=== PATIENT | female | born 1940 | race Caucasian/White ===

== ENCOUNTER → 2023-02-08 13:27 | Outpatient (CLI) | payer MEDICARE, SELFPAY ==
--- NOTE | ~2023-02-08 | XR_ITS ---
XR chest 2V DATE: 02/08/2023 13:50 INDICATION: COPD. Difficulty breathing. TECHNIQUE: 2 views COMPARISON: None FINDINGS: Normal heart size. Is aortic calcification and minimal unfolding. No hilar or mediastinal e nlargement. Mild bilateral apical capping. There is accentuation of interstitial lung markings, likely chronic interstitial change. The lungs ap pear mildly hyperinflated no pulmonary consolidation, pleural effusion or pneumothorax. Osteopenia. Probable bilateral rotator cuff atrophy. IMPRESSION: Likely chronic interstitial lung changes Mild hyperinflation which may indicate obstructive airways disease Aortic atherosclerosis Osteopenia Reviewed, dictated and finalized at location B.
== END ==
PROVIDERS: PCP Internal Medicine; Visit Provider Nurse Practitioner
DX: J44.1 Chronic obstructive pulmonary disease with (acute) exacerbation (principal); I70.0 Atherosclerosis of aorta; M85.80 Other specified disorders of bone density and structure, unspecified site
CPT/HCPCS: 71046

== ENCOUNTER 2023-07-12 12:35 | Inpatient (IN) | payer MEDICARE, SELFPAY ==
[2023-07-12] VITALS (32 sets, daily range): BP systolic 107–132; BP diastolic 60–83; PULSE 96–138; RESP 22–48; TEMP 36.2–36.8; O2SAT 94–100; BMI 25.8
--- NOTE | ~2023-07-12 | CT_ITS ---
EXAMINATION: CTA chest PE protocol DATE: 07/14/2023 14:13 INDICATION: Shortness of breath. TECHNIQUE: Computed tomography angiography (CTA) of the chest was performed with 100 mL Omnipaque-350 intravenous contrast timed to evaluate the pulmonary arteries. Coronal maximum intensity projection 3D-reconstructions were created by the technologist. Automated exposure control and iterative reconst ruction technique were employed. The dose-length product was 256.86 mGy-cm. COMPARISON: Chest single view 07/12/2023 FINDINGS: There is severe emphysema. There is peripheral septal thickening in the lungs with an infer ior predominance. No pleural effusion. Aortic atherosclerosis is noted. There are coronary artery gary cifications. The heart size is normal. No pericardial effusion. There is no pulmonary embolus. There is moderate cervical spondylosis and mild thoracic spondylosis. IMPRESSION: 1. No pulmonary embolus. Sensitivity is mildly decreased by motion artifact. 2. Diffuse lung disease, likely a combination of severe emphysema and mild chronic interstitial lung disease. Reviewed, dictated and finalized at location E. IMPRESSION: 1. No pulmonary embolus. Sensitivity is mildly decreased by motion artifact. 2. 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
--- NOTE | ~2023-07-12 | XR_ITS ---
EXAMINATION: XR chest 1V portable DATE: 07/12/2023 13:18 INDICATION: This of breath and difficulty breathing TECHNIQUE: frontal view of the chest was obtained. COMPARISON: Chest radiograph dated 02/08/2023 FINDINGS: Unchanged mild reticular opacities at the bilateral lung bases most likely related to chronic interst itial lung disease although differential would include mild pulmonary edema, atelectasis or less like ly pneumonia in the appropriate clinical setting. No pleural effusion or pneumothorax. The cardiomedi astinal silhouette is normal. Mild thoracic dextrocurvature. IMPRESSION: 1. Unchanged mild reticular opacities at the bilateral lung bases and favor chronic interstitial lung disease over either mild pulmonary edema, atelectasis or pneumonia. Reviewed, dictated and finalized at location A. IMPRESSION: 1. Unchanged mild reticular opacities at the bilateral lung bases and favor chr onic interstitial lung disease over either mild pulmonary edema, atelectasis or pneumonia.
--- NOTE | ~2023-07-12 | CT_ITS ---
CT head without contrast Indication: Painful pupils Technique: Serial scans were obtained through the brain without the administration of contrast. Dose reduction technique was used on this scan by utilizing automated exposure control and iterative recon struction technique. The dose-length product (DLP) was 529.67 mGy-cm. Findings: There is no evidence of intracranial hemorrhage, mass lesion, or acute infarct. The ventri cles and subarachnoid spaces are dilated, consistent with mild atrophy. Low attenuation regions are seen within the periventricular white matter bilaterally, likely representing changes from chronic mi crovascular ischemic disease. There is no evidence of edema, mass effect or midline shift. The visu alized paranasal sinuses and mastoid air cells are clear. Impression: No intracranial hemorrhage, mass, or acute infarct. Atrophy and chronic white matter changes, as above. Reviewed, dictated and finalized at location . Impression: No intracranial hemorrhage, mass, or acute infarct. Atrophy and chronic white matter changes, as above.
--- NOTE | ~2023-07-12 | US_ITS ---
EXAMINATION: US venous doppler [facility] DATE: 07/14/2023 15:08 INDICATION: Lower limb swelling. TECHNIQUE: Grayscale ultrasound images without and with compression and Doppler ultrasound images of the bilateral lower extremity veins were obtained. COMPARISON: None. FINDINGS: The visualized portions of right common femoral vein, profunda (deep) femoral vein, femoral vein, pop liteal vein, posterior tibial veins, peroneal veins, gastrocnemius vein and greater saphenous vein ou tflow are patent. The visualized portions of left common femoral vein, profunda femoral vein, femoral vein, popliteal v ein, posterior tibial veins, peroneal veins, gastrocnemius vein and greater saphenous vein outflow ar e patent. IMPRESSION: 1. No deep venous thrombosis in either lower limb. Reviewed, dictated and finalized at location A.
--- NOTE | 2023-07-12 13:03 | ECG_ITS ---
Measurements Intervals [place] Rate: 97 P: 64 RI: 161 QRS: 55 QRSD: 126 T: 40 QT: 367 QTc: 468 Interpretive Statements SINUS RHYTHM RIGHT BUNDLE BRANCH BLOCK [120+ ms QRS DURATION, UPRIGHT V1, 40+ ms S IN I/aVL/V4/V5/V6] ABNORMAL ECG NO PREVIOUS ECG AVAILABLE FOR COMPARISON Electronically Signed On 07-12-2023 14:02:15 CDT by Sean Osborn M.D.
[2023-07-12 13:24] LABS: Basophils Absolute Auto 0.1 K/mm3 (0.0-0.1); Basophils Percent Auto 0.4 % (0.2-1.2); Eosinophils Absolute Auto 0.1 K/mm3 (0-0.3); Eosinophils Percent Auto 0.6 % (0-4.4); Hematocrit 36.6 % (37.0-47.0); Hemoglobin 10.9 g/dL (12.0-15.0); Immature Granulocyte Absolute 0.09 K/mm3 (0.00-0.031); Immature Granulocyte Percent A 0.6 % (0-0.5); Lymphocytes Absolute Auto 2.12 K/mm3 (0.9-3.2); Lymphocytes Percent Auto 13.2 % (18.3-44.2); Mean Corpuscular HGB Conc 29.8 g/dl (32-36); Mean Corpuscular Hemoglobin 26.8 pg (26-34); Mean Corpuscular Volume 89.9 fl (80-100); Mean Platelet Volume 8.7 fl (7.4-10.4); Monocytes Absolute Auto 1.1 K/mm3 (0.1-0.6); Neutrophils Absolute Auto 12.6 K/mm3 (1.3-6.7); Neutrophils Percent Auto 78.2 % (45.5-73.1); Platelet Count Result 330 k/mm3 (150-375); Red Blood Count 4.07 M/mm3 (4.2-5.4); Red Cell Distribution Width 13.3 % (11.5-14.5); White Blood Count 16.1 K/mm3 (4.5-10.0)
[2023-07-12 13:33] LABS: Alanine Aminotransferase 17 U/L (6-35); Albumin Level 4.5 g/dL (3.5-5.1); Alkaline Phosphatase 117 U/L (38-126); Anion Gap 12 mmol/L (8-16); Aspartate Amino Transferase 24 U/L (14-36); Bilirubin,Total 0.8 mg/dL (0.2-1.3); Blood Urea Nitrogen 19 mg/dL (7-17); Calcium 8.9 mg/dL (8.4-10.2); Carbon Dioxide 24 mmol/L (22-30); Chloride 103 mmol/L (98-107); Estimated CRCL calculation 36 ml/min; Estimated Glomerular Filt Rate 60; Glucose 138 mg/dL (65-110); Sodium 139 mmol/L (137-145)
[2023-07-12 13:34] LABS: Alveolar/Arterial O2 Gradient 95.9 mmHg; Base Excess ABG -0.3 mEq/l (+/-2.0); Device NASAL CANNULA; Fractional Inspired Oxygen 32 %; HCO3 ABG 24.1 mEq/l (22.0-26.0); Lactic Acid Reflex 2.6 mmol/L (0.7-2.0); Modified Allen's Test Pass; Oxygen Content ABG 15.3 %vol (16.0-22.0); Oxygen Saturation ABG 96.8 % (95.0-100.0); PCO2 ABG 38.6 mmHg (35.0-45.0); PO2 ABG 87.1 mmHg (80.0-100.0); PO2 FiO2 Ratio Arterial Blood 2.72 %; Site Drawn RIGHT RADIAL; Total Hemoglobin 11.4 g/dL (12.0-18.0); pH ABG 7.414 (7.350-7.450)
[2023-07-12] MEDS: IPRATROPIUM BR 0.02% INH SOLN 0.5 MG/2.5 ML VIAL 1 MG INHALATION (13:45)
[2023-07-12] MEDS: ALBUTEROL SULFATE NEB 2.5 MG/3 ML INH 10 MG INHALATION (13:46)
--- NOTE | 2023-07-12 14:17 | ED.SOB ---
HPI - SOB/Dyspnea General Chief Complaint: Shortness of Breath/Dyspnea Stated Complaint: sob Time Seen by Provider: 07/12/23 13:11 History of Present Illness HPI Narrative: Patient is an 83-year-old female who presents ER with shortness of breath. Worsening over the last 2 days. Receiving nebulizer treatment from EMS which patient feels like helped her symptoms. Denies fevers or chills or sweats. reports patient was mildly confused today when he was at her doctor's appointment and she asked one of the staff at the appointment to ask her if it was okay for the man who is in bed with her to be there. reports she has had history of UTI in the past this made her confused. Related Data Allergies Allergy/AdvReac Type Severity Reaction Status Date / Time No Known Allergies Allergy Unknown Unverified 05/22/06 15:49 NKDA Allergy Mild Uncoded 05/18/06 09:10 Review of Systems Review of Systems: All systems reviewed & are unremarkable except as noted in HPI and below Constitutional: Constitutional: Denies chills, Reports fatigue and Denies fever(s) ENT: Denies nasal congestion and Denies sore throat Cardiovascular: Cardiovascular: Denies chest pain, Denies rapid heart rate and Denies radiating jaw, neck or arm pain Respiratory: Respiratory: Reports cough, Reports dyspnea and Reports wheezing Gastrointestinal: Gastrointestinal: Denies abdominal pain, Denies nausea and Denies vomiting Neurologic: Reports confusion, Denies syncope, Denies headache(s) and Denies focal weakness PMFSH Past Medical History Medical History (Updated 07/12/23 @ 18:22 by Margarito Ayoub MD) COPD (chronic obstructive pulmonary disease) Diabetes GERD (gastroesophageal reflux disease) Hemorrhoids Surgical History Surgical History (Updated 07/12/23 @ 18:17 by Margarito Ayoub MD) History of cholecystectomy History of hysterectomy Social History Social History (Updated 07/12/23 @ 18:17 by Margarito Ayoub MD) Smoking status: Former smoker Exam Narrative: GENERAL: Chronically ill-appearing, well-nourished, and in no acute distress. HEAD: Normocephalic, atraumatic. ENT: Mucous membranes moist. CHEST: Coarse expiratory wheezing bilaterally. Increased respiratory rate. HEART: Regular rate and rhythm. Normal peripheral pulses. ABDOMEN: Soft, nontender, nondistended. EXTREMITIES: Normal range of motion. No edema. SKIN: Warm, dry, no rash. NEURO: Alert and oriented x3. PSYCH: Normal mood and affect. Course Vital Signs Vital signs: Vital Signs Respiratory Rate 39 H 07/12/23 12:51 Pulse Oximetry 100 07/12/23 12:51 Temperature 97.5 F L 07/12/23 16:23 Pulse Rate 130 H 07/12/23 17:54 Respiratory Rate 40 H 07/12/23 17:54 Blood Pressure 120/70 07/12/23 17:54 Pulse Oximetry 94 07/12/23 17:54 Oxygen Delivery Nasal Cannula 07/12/23 13:24 Oxygen Flow Rate 2 07/12/23 13:24 MDM - SOB/Dyspnea MDM Narrative Medical decision making narrative: -Presentation: 83-year-old female presenting to the ER with wheezing and delirium -DDX includes but is not limited to: Pneumonia, sepsis, COPD exacerbation -Co-morbidities complicating care: COPD, advanced age -Social determinants of health: Lives at home with -External Chart Review: Previously charted past medical history. -Hx from independent Sources: Patient and . -Independent interpretation of studies: Elevated lactic acid 2.4, chest x-ray with concerns for pneumonia, elevated white blood cell count of 16.1, anemia with hemoglobin at 10.9. Electrolytes and renal function normal. Urinalysis with possible signs of infection. -Discussion of Management/Consultants: none -Dx tests considered but not ordered: none -Procedures: none -Interventions: Ceftriaxone 1 g, azithromycin 500 mg, duo nebulizer continuous treatment -Shared decision making / Disposition: Admit to the hospital service, accepted by
[2023-07-12 14:31] LABS: NT Pro B Type Natriuretic Pept 771 pg/mL (19.9-100)
[2023-07-12 14:44] LABS: Appearance Urine Clear (Clear); Bacteria Urine 2+ /hpf; Bilirubin Urine 1+ (Negative); Blood Urine Negative (Negative); Color Urine Dark Yellow (Yellow); Glucose Urine UA Negative (Negative); Ketones Urine Trace mg/dL (Negative); Leukocyte Esterase Ur Trace LEU/UL (Negative); Nitrate Urine Positive (Negative); Protein Urine Trace mg/dL (Negative); RBC Urine 0-2 /hpf (0-2); Specific Grav Ur 1.034 (1.001-1.035); Squamous Epithelial Cell Urine None seen /hpf (Few); Urobilinogen Urine 0.2 mg/dL (<2.0); WBC Urine 0-5 /hpf
[2023-07-12 15:02] LABS: Add Urine Microscopic? YES
[2023-07-12 15:16] LABS: Influenza A QL RT-PCR Negative (Negative); Influenza B QL RT-PCR Negative (Negative); SARS-CoV-2 RNA PCR Negative (Negative)
--- NOTE | 2023-07-12 15:37 | PM.IMHP ---
H&P: HPI History of Present Illness Date/Time: 07/12/23 15:37 Chief Complaint: AMS, dyspnea Narrative: Patient is an 83-year-old female with past medical history COPD, type 2 diabetes, GERD, hemorrhoids, says hypertension presents to hospital with confusion and dyspnea. was concerned when she made odd statements about strange men being in her bed. Patient otherwise with the usual state of health and even seen her PCP earlier this week. Patient had been having increasing complaints of catching her breath. She has COPD with no home oxygen therapy. does not recall her last COPD exacerbation. No longer smokes. No recent travels, no sick contacts. In the ED:WBC 16k, LA 2.6, flu neg and covid neg. Started on rocephin and azithromycin for possible CAP. On the medical floor patient had significant wheezing with tachypnea and tachycardia and started patient on Solu-Medrol. Review of Systems Review of Systems: Constitutional: No Fever, No Chills, No Night Sweats, No Fatigue, No Malaise ENT/Mouth: No Hearing Changes, No Ear Pain, No Nasal Congestion, No Sinus Pain, No Hoarseness, No sore throat, No Rhinorrhea, No Swallowing Difficulty Eyes: No Eye Pain, No Redness, No Vision Changes Cardiovascular: No Chest Pain, No Palpitations, No Dyspnea on Exertion, No Orthopnea, No Claudication, No Edema Respiratory: No Cough, No Sputum, No Wheezing, No Shortness of Breath Gastrointestinal: No Nausea, No Vomiting, No Diarrhea, No Constipation, No Abdominal Pain, No Heartburn, No Hematochezia, No Melena Genitourinary: No Dysuria, No Urinary Frequency, No Hematuria, No Urinary Incontinence, No Urgency Musculoskeletal: No Arthralgias, No Myalgias, No Joint Swelling, No Joint Stiffness, No Back Pain Skin: No Skin Lesions, No Pruritis, No Hair Changes Neuro: No Weakness, No Numbness, No Paresthesias, No Loss of Consciousness, No Syncope, No Dizziness, No Headache Psych: No Anxiety/Panic, No Depression, No Insomnia Heme: No Bruising, No Bleeding Lymph: No Adenopathy Endocrine: No Polyuria, No Polydipsia, No Temperature Intolerance [facility] Past Medical History Medical History (Updated 07/12/23 @ 18:22 by Margarito Ayoub MD) COPD (chronic obstructive pulmonary disease) Diabetes GERD (gastroesophageal reflux disease) Hemorrhoids Surgical History Surgical History (Updated 07/12/23 @ 18:17 by Margarito Ayoub MD) History of cholecystectomy History of hysterectomy Family History Family History Father Leukemia Social History Social History (Updated 07/12/23 @ 18:17 by Margarito Ayoub MD) Smoking status: Former smoker Alcohol intake: never Substance use: never Lack of Transportation: No Lack of Food: Never True Current Housing: I Have Housing Concerned About Future Housing: No Difficulty Paying Gas/Electric Bills: No Difficulty Paying for Meds: No Currently Unemployed: No Education: High School Diploma/GED Difficulty w/ Childcare or Family Care: No Spiritual care concerns: No Comments lives with Richard Padilla Home Medications and Allergies Home Medications Medication Instructions Recorded Confirmed Type Aspirin Child 81 mg PO DAILY 07/12/23 07/12/23 History Tylenol Extra Strength 500 mg PO Q6H PRN Pain (Scale 07/12/23 07/12/23 History Score 1-3) albuterol sulfate 2.5 mg/3 mL 2.5 mg inhalation BID PRN 07/12/23 07/12/23 History (0.083 %) solution for nebulization Shortness Of Breath Or Wheezing albuterol sulfate 90 mcg/actuation 2 puff inhalation QID PRN sob 07/12/23 07/12/23 History aerosol inhaler alirocumab 75 mg/mL subcutaneous 75 mg subcut [id number] 07/12/23 07/12/23 History pen injector (Praluent Pen) budesonide-formoterol HFA 160 2 puff inhalation BID 07/12/23 07/12/23 History mcg-4.5 mcg/actuation aerosol inhaler (Symbicort) duloxetine 60 mg capsule,delayed 60 mg PO BID 07/12/23 07/12/23 His
[2023-07-12] MEDS: AZITHROMYCIN 500 MG/NS 250 ML 500 MG/250 ML BAG 250 MG IVPB (16:18)
[2023-07-12 16:22] LABS: Reflex Lactic Acid Yes or No Add Lactic
[2023-07-12 16:52] LABS: Lactic Acid 2.4 mmol/L (0.7-2.0)
[2023-07-12 17:30] LABS: CRP 5.3 mg/dL (<1.0)
[2023-07-12 17:43] LABS: Procalcitonin 0.1 ng/mL
[2023-07-12 18:08] LABS: Erythrocyte Sedimentation Rate 23 mm/hr (0-20)
--- NOTE | 2023-07-12 18:20 | ADMGEN ---
This patient, Alejandra Grijalva, was admitted to Medical Room 343-01. Patient/family oriented to hospital policies and general routines including ID bracelet, bed and alarms, visiting hours, pain management, procedures, bathroom and other care routines, personal items, smoking policy, room service/diet, and visiting hours. Information on how to activate the Rapid Response Team has been discussed. Patient/Family are encouraged to report perceived risks to care and to ask questions if they do not understand what they are told or what they should do.
[2023-07-12] MEDS: LACTATED RINGERS 1,000 ML 75 ML IV CONT (18:59)
[2023-07-12] MEDS: methylPREDNISolone SOD SUCC 125 MG VIAL IV PUSH (18:59)
[2023-07-12] MEDS: LEVALBUTEROL NEB 1.25 MG/3 ML INHALATION (19:42)
[2023-07-12] MEDS: IPRATROPIUM BR 0.02% INH SOLN 0.5 MG/2.5 ML VIAL INHALATION (19:42)
[2023-07-12] MEDS: racEPINEPHrine 2.25% NEBU SOLN 0.5 ML VIAL.NEB INHALATION (20:20)
[2023-07-12] MEDS: LORazepam (*CRX) 0.5 MG TABLET PO (22:07)
[2023-07-12] MEDS: DULoxetine HCL 60 MG CAPSULE.DR PO (22:07)
[2023-07-12] MEDS: METOPROLOL TARTRATE 50 MG TAB PO (22:07)
[2023-07-13] VITALS (22 sets, daily range): BP systolic 104–137; BP diastolic 68–86; PULSE 101–122; RESP 20–28; TEMP 36.1–36.8; O2SAT 95–100
[2023-07-13] MEDS: LEVALBUTEROL NEB 1.25 MG/3 ML INHALATION ×4 (01:09→19:54)
[2023-07-13] MEDS: IPRATROPIUM BR 0.02% INH SOLN 0.5 MG/2.5 ML VIAL INHALATION ×4 (01:09→19:54)
[2023-07-13] MEDS: methylPREDNISolone SOD SUCC 40 MG VIAL IV PUSH ×3 (03:13→20:21)
[2023-07-13] MEDS: racEPINEPHrine 2.25% NEBU SOLN 0.5 ML VIAL.NEB INHALATION (04:32)
[2023-07-13 05:39] LABS: Basophils Percent Auto 0.1 % (0.2-1.2); Hematocrit 31.8 % (37.0-47.0); Hemoglobin 9.8 g/dL (12.0-15.0); Immature Granulocyte Absolute 0.08 K/mm3 (0.00-0.031); Immature Granulocyte Percent A 0.8 % (0-0.5); Lymphocytes Absolute Auto 0.87 K/mm3 (0.9-3.2); Lymphocytes Percent Auto 8.4 % (18.3-44.2); Mean Corpuscular HGB Conc 30.8 g/dl (32-36); Mean Corpuscular Hemoglobin 26.7 pg (26-34); Mean Corpuscular Volume 86.6 fl (80-100); Mean Platelet Volume 8.6 fl (7.4-10.4); Monocytes Absolute Auto 0.2 K/mm3 (0.1-0.6); Monocytes Percent Auto 2.1 % (2.6-8.5); Neutrophils Absolute Auto 9.2 K/mm3 (1.3-6.7); Neutrophils Percent Auto 88.6 % (45.5-73.1); Platelet Count Result 273 k/mm3 (150-375); Red Blood Count 3.67 M/mm3 (4.2-5.4); Red Cell Distribution Width 13.3 % (11.5-14.5); White Blood Count 10.4 K/mm3 (4.5-10.0)
[2023-07-13 05:53] LABS: Anion Gap 9 mmol/L (8-16); Blood Urea Nitrogen 15 mg/dL (7-17); Calcium 8.7 mg/dL (8.4-10.2); Carbon Dioxide 23 mmol/L (22-30); Chloride 105 mmol/L (98-107); Estimated CRCL calculation 41 ml/min; Estimated Glomerular Filt Rate > 60; Glucose 212 mg/dL (65-110); Magnesium 1.8 mg/dL (1.6-2.3); Potassium 3.9 mmol/L (3.4-5.0); Sodium 137 mmol/L (137-145)
[2023-07-13 06:27] LABS: Hemoglobin A1C 6.4 % (<5.7)
[2023-07-13] MEDS: FLUTICASONE/SALMETEROL 115-21 MCG INHALER 1 PUFF 2 PUFF INHALATION ×2 (07:11→19:55)
[2023-07-13] MEDS: PANTOPRAZOLE 40 MG TABLET PO (08:07)
[2023-07-13] MEDS: ASPIRIN 81 MG CHEWABLE TABLET PO (08:07)
[2023-07-13] MEDS: LORazepam (*CRX) 0.5 MG TABLET PO ×2 (08:07→20:21)
[2023-07-13] MEDS: METOPROLOL TARTRATE 50 MG TAB PO ×2 (08:07→20:21)
[2023-07-13] MEDS: ENOXAPARIN 40 MG/0.4 ML SYRINGE SUB-Q (08:07)
[2023-07-13] MEDS: DULoxetine HCL 60 MG CAPSULE.DR PO ×2 (08:07→16:42)
[2023-07-13 08:28] LABS: Glucose Point of Care 200 mg/dl (65-105)
--- NOTE | 2023-07-13 08:43 | PM.IMPN ---
Progress Note: A&P Assessment and Plan (1) COPD (chronic obstructive pulmonary disease): Code(s): J44.9 - Chronic obstructive pulmonary disease, unspecified Status: Acute (2) Community acquired pneumonia: Code(s): J18.9 - Pneumonia, unspecified organism Status: Acute Plan # COPD exacerbation # possible community acquired pneumonia # sepsis secondary to COPD -dyspnea, coarse lung sounds -LA elevated 2.6->2.4, WBC 16k, tachycardic, tachypnic -abx: rocephin and azithromycin -CXR concerning for ILD -with significant wheezing respiratory distress will give Solu-Medrol 120 mg than 40 mg q.8 hours -continue nebs, will change albuterol to Xopenex for tachycardia, q6hr. Patient received racemic epinephrine -will trend labs, check procalc, inflammatory markers -COVID neg, flu neg, checking legionella, strep, mycoplasma, pneumococcal -O2 as needed to keep O2 >90%, currently 2L O2 by NC -pain control prn tylenol, norco -home uses Symbicort, spiriva, albuterol -PT/OT consulted Possible fluid overload Lasix 40 mg IV once and bid ivp s/w azithromycin and ceftriaxone IV Discontinue IV fluid order echo #delirium?, resolved -earlier in the day was confused at home. notes that patient's confusion is already improving throughout the day. patient is oriented x3, does not recall her confusion episode which appears to have resolved on my assessment -h/o confusion with UTI, however UTI ruled out - is concerned patient may have taken her evening meds this morning #chronic conditions -DMII: A1c, accucheck ACHS, hypoglycemia protocol. Holding home metformin -GERD: Omeprazole -sinus tachycardia: Continue home metoprolol -hemorrhoids -anxiety: Continue home Xanax, duloxetine -hyperlipidemia: Does not tolerate statins, on praluent, aspirin Diet: Regular DVT ppx: lovenox GI ppx: PPI Code status: DNR Disposition: home in 2-3 days Subjective Date/time seen: 07/13/23 08:43 Interval history: I saw exam patient today, patient still has shortness breath, cough, no significant improvement. No other issue even over the night, Exam Narrative: - GENERAL: Pleasant elderly woman in respiratory distress. - EYES: EOMI. Anicteric. - HENT: dry mucous membranes. Poor dentition - LUNGS: Coarse lung sounds throughout, wheezing R>L, scattered crackles bilateral base - CARDIOVASCULAR: Tachycardic and regular rhythm. No murmur - ABDOMEN: Soft, non-tender and non-distended. No palpable masses. - EXTREMITIES: No edema. Peripheral pulses 2+. Non-tender. - NEUROLOGIC: No focal neurological deficits. CN II-XII grossly intact. - PSYCHIATRIC: Awake, Alert and oriented x 3. Appropriate mood and affect. - SKIN: No rashes or lesions. Warm. - LYMPH: No cervical lymphadenopathy. Objective Data Vital Signs Vital Signs: Vital Signs - 24 hr 07/12/23 12:52 07/12/23 13:24 07/12/23 12:51 Temperature 98.2 F Pulse Rate 96 Respiratory Rate 22 H 39 H Blood Pressure 122/60 Pulse Oximetry 100 100 100 Oxygen Delivery Nasal Cannula Nasal Cannula Oxygen Flow Rate 2 2 07/12/23 13:06 07/12/23 13:15 07/12/23 13:30 Temperature Pulse Rate 97 102 H 100 Respiratory Rate 45 H 36 H 43 H Blood Pressure Pulse Oximetry 100 100 Oxygen Delivery Oxygen Flow Rate 07/12/23 13:47 07/12/23 13:54 07/12/23 14:09 Temperature Pulse Rate 100 101 H 106 H Respiratory Rate 37 H 37 H 39 H Blood Pressure Pulse Oximetry 100 Oxygen Delivery Oxygen Flow Rate 07/12/23 14:15 07/12/23 14:35 07/12/23 15:09 Temperature Pulse Rate 109 H 123 H 130 H Respiratory Rate 39 H 29 H 38 H Blood Pressure 124/70 Pulse Oximetry 100 100 Oxygen Delivery Oxygen Flow Rate 07/12/23 15:21 07/12/23 15:31 07/12/23 15:45 Temperature Pulse Rate 130 H 129 H 130 H Respiratory Rate 36 H 38 H 33 H Blood Pressure 107/61 Pulse Oximetry 100 98 Oxygen Delivery Oxygen Flow Rate 07/12/23 16:15
[2023-07-13] MEDS: FUROSEMIDE INJ 40 MG/4 ML VIAL IV PUSH ×2 (09:05→16:42)
[2023-07-13 11:55] LABS: Glucose Point of Care 256 mg/dl (65-105)
[2023-07-13] MEDS: INSULIN ASPART (*BKC) 100 UNITS/ML SUB-Q ×2 (12:04→18:36)
[2023-07-13 17:15] LABS: Glucose Point of Care 211 mg/dl (65-105)
[2023-07-13] MEDS: AZITHROMYCIN 500 MG/NS 250 ML 500 MG/250 ML BAG 250 MG IVPB (17:30)
[2023-07-13 20:17] LABS: Glucose Point of Care 245 mg/dl (65-105)
[2023-07-14] VITALS (18 sets, daily range): BP systolic 104–125; BP diastolic 58–90; PULSE 90–121; RESP 18–26; TEMP 35.8–36.8; O2SAT 95–98
--- NOTE | 2023-07-14 | ECHO_ITS ---
Patient Info Name: Alejandra Grijalva Age: 83 years : 1940 Gender: Female Ht: 61 in Wt: 136 lbs BSA: 1.64 m2 HR: 102 bpm BP: 104 / 70 mmHg Heart Rhythm: Sinus Arrhythmia Technical Quality: Fair Exam Date: 07/14/2023 11:13 AM Exam Location: [facility] Patient Status: Inpatient Admit Date: 07/13/2023 Staff Ordering Physician: Glenis Vergara MD Lead Quality Control Technician: Odalys Beckwith RDCS Attending Provider: Juwan Warren DO Exam Type: CA echo dop color flow w con Study Info Indications - DIZZINESS Complete two-dimensional, color flow and Doppler transthoracic echocardiogram is performed with contrast to opacify the left ventricle and to improve the deliniation of the left ventricle endocardial borders. Contrast/Agitated Saline Contrast/Ag. Saline: Definity Amount: 2.00 ml Administered By: Odalys Beckwith RDCS Existing IV Access: Yes IV Access Condition: patent with no signs of infiltration Summary 1. Definity contrast administered improved wall motion interpretation. 2. Left ventricular chamber dimension is normal. 3. Left ventricular systolic function is hyperdynamic, estimated at >70%. 4. The left ventricular diastolic function is grade I diastolic dysfunction. 5. E/e' 12 is mildly elevated. 6. There is mild aortic valve sclerosis. 7. No pulmonary hypertension, estimated pulmonary arterial systolic pressure is 22 mmHg. Left Ventricle Definity contrast administered improved wall motion interpretation. E/e' 12 is mildly elevated. Left ventricular chamber dimension is normal. Left ventricular systolic function is hyperdynamic, estimated at >70%. The left ventricular diastolic function is grade I diastolic dysfunction. Right Ventricle Right ventricular chamber dimension is normal. Right ventricular systolic function is normal. Left Atria Left atrial chamber dimension is normal. Right Atria Right atrial chamber dimension is normal. Aortic Valve The aortic valve is trileaflet. There is mild aortic valve sclerosis. There is no aortic valve stenosis. There is no aortic valve regurgitation. Pulmonic Valve There is no pulmonic regurgitation. Mitral Valve There is no mitral valve stenosis. There is no mitral valve regurgitation. Tricuspid Valve There is no tricuspid valve regurgitation. No pulmonary hypertension, estimated pulmonary arterial systolic pressure is 22 mmHg. Pericardium/Pleural There is no pericardial effusion. Inferior Vena Cava Normal inferior vena cava with >50% collapse upon inspiration consistent with normal right atrial pressure, 5 mmHg. Aorta The aortic root size at the sinus of Valsalva is normal. Left Ventricular Outflow Tract Name Value Normal LVOT 2D LVOT Diameter 2.03 cm LVOT Doppler LVOT Peak Gradient 3 mmHg LVOT Mean Gradient 1 mmHg LVOT VTI 15.35 cm LVOT VTI/AV VTI Ratio 0.72 LVOT Stroke Volume 49.86 ml LVOT CO 9.83 l/min LVOT CI 5.98 L/min/m2 Pulmonic Valve
[2023-07-14] MEDS: LEVALBUTEROL NEB 1.25 MG/3 ML INHALATION ×4 (02:31→20:30)
[2023-07-14] MEDS: IPRATROPIUM BR 0.02% INH SOLN 0.5 MG/2.5 ML VIAL INHALATION ×4 (02:31→20:30)
[2023-07-14] MEDS: methylPREDNISolone SOD SUCC 40 MG VIAL IV PUSH ×2 (02:52→11:12)
[2023-07-14] MEDS: FLUTICASONE/SALMETEROL 115-21 MCG INHALER 1 PUFF 2 PUFF INHALATION ×2 (07:32→20:30)
--- NOTE | 2023-07-14 08:38 | PM.IMPN ---
Progress Note: A&P Assessment and Plan (1) COPD (chronic obstructive pulmonary disease): Code(s): J44.9 - Chronic obstructive pulmonary disease, unspecified Status: Acute (2) Community acquired pneumonia: Code(s): J18.9 - Pneumonia, unspecified organism Status: Acute Plan # COPD exacerbation # possible community acquired pneumonia # sepsis secondary to COPD -dyspnea, coarse lung sounds -LA elevated 2.6->2.4, WBC 16k, tachycardic, tachypnic -abx: rocephin and azithromycin -CXR concerning for ILD -with significant wheezing respiratory distress will give Solu-Medrol 120 mg than 40 mg q.8 hours -continue nebs, will change albuterol to Xopenex for tachycardia, q6hr. Patient received racemic epinephrine -will trend labs, check procalc, inflammatory markers -COVID neg, flu neg, checking legionella, strep, mycoplasma, pneumococcal -O2 as needed to keep O2 >90%, currently 2L O2 by [place] -pain control prn tylenol, norco -home uses Symbicort, spiriva, albuterol -PT/OT consulted Possible fluid overload Lasix 40 mg IV once and bid ivp s/w azithromycin and ceftriaxone IV Discontinue IV fluid order echo, pending #delirium?, resolved -earlier in the day was confused at home. notes that patient's confusion is already improving throughout the day. patient is oriented x3, does not recall her confusion episode which appears to have resolved on my assessment -h/o confusion with UTI, however UTI ruled out - is concerned patient may have taken her evening meds this morning #chronic conditions -DMII: A1c, accucheck ACHS, hypoglycemia protocol. Holding home metformin -GERD: Omeprazole -sinus tachycardia: Continue home metoprolol -hemorrhoids -anxiety: Continue home Xanax, duloxetine -hyperlipidemia: Does not tolerate statins, on praluent, aspirin Diet: Regular DVT ppx: lovenox GI ppx: PPI Code status: DNR Disposition: home in 2-3 days Subjective Date/time seen: 07/14/23 08:38 Interval history: I saw exam patient today, patient still has shortness breath, cough, no significant improvement. No other issue even over the night, Exam Narrative: - GENERAL: Pleasant elderly woman in respiratory distress. - EYES: EOMI. Anicteric. - HENT: dry mucous membranes. Poor dentition - LUNGS: Coarse lung sounds throughout, wheezing b/l lungs, scattered crackles bilateral base - CARDIOVASCULAR: Tachycardic and regular rhythm. No murmur - ABDOMEN: Soft, non-tender and non-distended. No palpable masses. - EXTREMITIES: No edema. Peripheral pulses 2+. Non-tender. - NEUROLOGIC: No focal neurological deficits. CN II-XII grossly intact. - PSYCHIATRIC: Awake, Alert and oriented x 3. Appropriate mood and affect. - SKIN: No rashes or lesions. Warm. - LYMPH: No cervical lymphadenopathy. Objective Data Vital Signs Vital Signs: Vital Signs - 24 hr 07/13/23 13:22 07/13/23 13:48 07/13/23 14:29 Temperature 97.8 F Pulse Rate 102 H 113 H Respiratory Rate 20 28 H Blood Pressure 104/71 Pulse Oximetry 95 Oxygen Delivery Nasal Cannula Oxygen Flow Rate 2 Fraction of Inspired Oxygen 07/13/23 12:04 07/13/23 16:04 07/13/23 19:57 Temperature Pulse Rate 101 H 115 H Respiratory Rate Blood Pressure Pulse Oximetry 100 Oxygen Delivery Nasal Cannula Oxygen Flow Rate 2 Fraction of Inspired Oxygen 07/13/23 19:58 07/13/23 20:11 07/13/23 20:21 Temperature Pulse Rate 113 H 108 H 115 H Respiratory Rate 24 H 24 H Blood Pressure Pulse Oximetry Oxygen Delivery Oxygen Flow Rate Fraction of Inspired Oxygen 07/13/23 21:03 07/13/23 20:00 07/14/23 00:00 Temperature 98.3 F Pulse Rate 112 H 109 H 111 H Respiratory Rate 24 H Blood Pressure 113/68 Pulse Oximetry 100 Oxygen Delivery Oxygen Flow Rate Fraction of Inspired Oxygen 07/14/23 02:33 07/14/23 04:00 07/14/23 05:10 Temperature 98.2 F Pulse Rate 97 107 H 102 H Respiratory Rate 20 26
[2023-07-14 08:46] LABS: Glucose Point of Care 191 mg/dl (65-105)
[2023-07-14] MEDS: METOPROLOL TARTRATE 50 MG TAB PO ×2 (09:00→20:27)
[2023-07-14] MEDS: ASPIRIN 81 MG CHEWABLE TABLET PO (09:01)
[2023-07-14] MEDS: DULoxetine HCL 60 MG CAPSULE.DR PO ×2 (09:01→17:05)
[2023-07-14] MEDS: FUROSEMIDE INJ 40 MG/4 ML VIAL IV PUSH ×2 (09:01→17:06)
[2023-07-14] MEDS: LORazepam (*CRX) 0.5 MG TABLET PO ×2 (09:01→20:28)
[2023-07-14] MEDS: PANTOPRAZOLE 40 MG TABLET PO (09:01)
[2023-07-14] MEDS: ENOXAPARIN 40 MG/0.4 ML SYRINGE SUB-Q (09:01)
[2023-07-14 09:28] LABS: Anion Gap 12 mmol/L (8-16); Blood Urea Nitrogen 31 mg/dL (7-17); Calcium 9.3 mg/dL (8.4-10.2); Carbon Dioxide 26 mmol/L (22-30); Chloride 101 mmol/L (98-107); Estimated CRCL calculation 36 ml/min; Estimated Glomerular Filt Rate > 60; Glucose 192 mg/dL (65-110); Potassium 4.1 mmol/L (3.4-5.0); Sodium 139 mmol/L (137-145)
[2023-07-14 10:58] LABS: Basophils Percent Auto 0.1 % (0.2-1.2); Hematocrit 36.4 % (37.0-47.0); Immature Granulocyte Absolute 0.17 K/mm3 (0.00-0.031); Immature Granulocyte Percent A 0.9 % (0-0.5); Lymphocytes Absolute Auto 0.76 K/mm3 (0.9-3.2); Lymphocytes Percent Auto 3.9 % (18.3-44.2); Mean Corpuscular HGB Conc 30.2 g/dl (32-36); Mean Corpuscular Hemoglobin 26.5 pg (26-34); Mean Corpuscular Volume 87.7 fl (80-100); Mean Platelet Volume 8.9 fl (7.4-10.4); Monocytes Absolute Auto 0.6 K/mm3 (0.1-0.6); Monocytes Percent Auto 2.9 % (2.6-8.5); Neutrophils Absolute Auto 18.2 K/mm3 (1.3-6.7); Neutrophils Percent Auto 92.2 % (45.5-73.1); Platelet Count Result 424 k/mm3 (150-375); Red Blood Count 4.15 M/mm3 (4.2-5.4); Red Cell Distribution Width 13.5 % (11.5-14.5); White Blood Count 19.7 K/mm3 (4.5-10.0)
[2023-07-14] MEDS: PERFLUTREN LIPID MICROSPHERES 1.5 ML VIAL DILUTED TO 10 ML TOTAL VOLUME IV PUSH (11:43)
[2023-07-14 12:03] LABS: Glucose Point of Care 200 mg/dl (65-105)
--- NOTE | 2023-07-14 12:15 | IVDEFINITY ---
Prior to administration of IV Definity the patient was educated on the risks and benefits of the imaging enhancing agent including potential adverse side effects. The patient verbalized understanding. Allergies were verified. No exclusion criteria were identified and at least one of the following inclusion criteria were met: 1) physician request, 2) patient technically difficult to image (per the [place] [employer] of Echocardiography guidelines of two or more segments not discernable within the apical view), or 3) questionable left ventricular function. ?
--- NOTE | 2023-07-14 12:38 | PM.CNPUL ---
Assessment and Plan Assessment and plan (1) COPD (chronic obstructive pulmonary disease): Code(s): J44.9 - Chronic obstructive pulmonary disease, unspecified Status: Acute Assessment and Plan: This 83-year-old female with a history of COPD chronically on maintenance bronchodilators with no previous pulmonary function testing being available presented with shortness of breath of several days duration, mild leukocytosis mild elevation of lactic acid, hypoxemia but no hypercapnia. The patient has been treated with multiple medications for pneumonia, COPD exacerbation and probably for congestive heart failure. Chest x-ray is not diagnostic. She has small infiltrates at bases bilaterally of unclear significance. She has no pleural effusions. Physical exam shows crackles at bases only. Three virus testing negative by PCR. Patient's respiratory status has improved. Will proceed with chest CT with contrast to characterize basal infiltrates and also exclude pulmonary embolism. I have discontinued the IV steroids for now. I would repeat COVID PCR. Further recommendations depending upon the findings of CT PA. (2) Diabetes: Code(s): E11.9 - Type 2 diabetes mellitus without complications Status: Acute History of Present Illness History of Present Illness Consult date: 07/14/23 Chief complaint: pneumonia,copd,uti,delirium Narrative: This 83-year-old female was admitted to the hospital 2 days ago with a history of shortness of breath of several days duration. The patient has a history of COPD and has been on maintenance bronchodilators. No prior pulmonary function testing is available. Patient is followed by pulmonary services at [facility]. Reportedly she was in her usual state of health, even doing pulmonary rehab to 3 days a week until several days prior to this admission when she started to have a shortness of breath and fatigue. Reportedly the patient also noticed some FACILITY ENVIRONMENTAL TECHNICIAN changes but no cough sputum production hemoptysis chest pain or orthopnea. She also had some wheezing. Upon evaluation in the emergency room, chest x-ray showed possible basal infiltrates bilaterally but no pleural effusion. She had no hypercapnia on arterial blood gases; BNP was elevated in the range of 700. She had mild leukocytosis and mild elevation of lactic acid. The patient has been treated with antibiotics IV steroids presumably for COPD exacerbation or lower respiratory tract infection. She also receiving treatment with diuretics. Patient's respiratory status has improved. Upon questioning she admitted feeling better. She no longer has wheezing cough sputum production fever chills or hemoptysis. She has no lower extremity edema. Review of Systems Review of Systems: All systems reviewed & are unremarkable except as noted in HPI and below (HPI below) [facility] Past Medical History Medical History (Updated 07/14/23 @ 12:46 by Nicolas Irby MD) COPD (chronic obstructive pulmonary disease) Diabetes GERD (gastroesophageal reflux disease) Hemorrhoids Surgical History Surgical History (Updated 07/12/23 @ 18:17 by Margarito Ayoub MD) History of cholecystectomy History of hysterectomy Family History Family History Father Leukemia Social History Social History (Updated 07/12/23 @ 18:17 by Margarito Ayoub MD) Smoking status: Former smoker Alcohol intake: never Substance use: never Lack of Transportation: No Lack of Food: Never True Current Housing: I Have Housing Concerned About Future Housing: No Difficulty Paying Gas/Electric Bills: No Difficulty Paying for Meds: No Currently Unemployed: No Education: High School Diploma/GED Difficulty w/ Childcare or Family Care: No Spiritual care concerns: No Meds Home Medications and Allergies Home Medications Medication Instructions Recorded Confirmed Type Aspirin Child 83 m
--- NOTE | 2023-07-14 14:30 | PC.NURSE ---
Patient is taking Alirocumab, a bi weekly cholesterol home medication, which would be due today. Per Dr. Vergara, we will not administer this medication while patient is at [facility].
[2023-07-14 15:59] LABS: SARS-CoV-2 RNA PCR Negative (Negative)
[2023-07-14 16:35] LABS: Glucose Point of Care 168 mg/dl (65-105)
[2023-07-14] MEDS: AZITHROMYCIN 500 MG/NS 250 ML 500 MG/250 ML BAG 250 MG IVPB (17:06)
[2023-07-14 21:36] LABS: Glucose Point of Care 163 mg/dl (65-105)
[2023-07-15] VITALS (18 sets, daily range): BP systolic 128–143; BP diastolic 69–85; PULSE 95–119; RESP 18–20; TEMP 36.2–36.5; O2SAT 97–99
[2023-07-15 06:09] LABS: Basophils Percent Auto 0.2 % (0.2-1.2); Hematocrit 36.8 % (37.0-47.0); Hemoglobin 11.1 g/dL (12.0-15.0); Immature Granulocyte Absolute 0.14 K/mm3 (0.00-0.031); Immature Granulocyte Percent A 0.8 % (0-0.5); Lymphocytes Absolute Auto 1.64 K/mm3 (0.9-3.2); Lymphocytes Percent Auto 8.9 % (18.3-44.2); Mean Corpuscular HGB Conc 30.2 g/dl (32-36); Mean Corpuscular Hemoglobin 26.9 pg (26-34); Mean Corpuscular Volume 89.1 fl (80-100); Mean Platelet Volume 8.7 fl (7.4-10.4); Monocytes Absolute Auto 1.3 K/mm3 (0.1-0.6); Monocytes Percent Auto 6.8 % (2.6-8.5); Neutrophils Absolute Auto 15.4 K/mm3 (1.3-6.7); Neutrophils Percent Auto 83.3 % (45.5-73.1); Platelet Count Result 359 k/mm3 (150-375); Red Blood Count 4.13 M/mm3 (4.2-5.4); Red Cell Distribution Width 13.4 % (11.5-14.5); White Blood Count 18.5 K/mm3 (4.5-10.0)
[2023-07-15 06:21] LABS: Anion Gap 8 mmol/L (8-16); Blood Urea Nitrogen 42 mg/dL (7-17); Calcium 8.6 mg/dL (8.4-10.2); Carbon Dioxide 32 mmol/L (22-30); Chloride 96 mmol/L (98-107); Estimated CRCL calculation 25 ml/min; Estimated Glomerular Filt Rate 43; Glucose 157 mg/dL (65-110); Potassium 3.6 mmol/L (3.4-5.0); Sodium 136 mmol/L (137-145)
[2023-07-15] MEDS: IPRATROPIUM BR 0.02% INH SOLN 0.5 MG/2.5 ML VIAL INHALATION ×3 (07:54→20:03)
[2023-07-15] MEDS: LEVALBUTEROL NEB 1.25 MG/3 ML INHALATION ×3 (07:54→20:03)
[2023-07-15] MEDS: FLUTICASONE/SALMETEROL 115-21 MCG INHALER 1 PUFF 2 PUFF INHALATION ×2 (07:55→20:03)
[2023-07-15 08:07] LABS: Glucose Point of Care 145 mg/dl (65-105)
[2023-07-15] MEDS: ENOXAPARIN 40 MG/0.4 ML SYRINGE SUB-Q (08:25)
[2023-07-15] MEDS: LORazepam (*CRX) 0.5 MG TABLET PO ×2 (08:26→20:31)
[2023-07-15] MEDS: ASPIRIN 81 MG CHEWABLE TABLET PO (08:26)
[2023-07-15] MEDS: predniSONE 20 MG, predniSONE 10 MG 30 MG PO (08:26)
[2023-07-15] MEDS: METOPROLOL TARTRATE 50 MG TAB PO ×2 (08:26→20:31)
[2023-07-15] MEDS: DULoxetine HCL 60 MG CAPSULE.DR PO ×2 (08:26→17:11)
[2023-07-15] MEDS: PANTOPRAZOLE 40 MG TABLET PO (08:27)
[2023-07-15] MEDS: FUROSEMIDE INJ 40 MG/4 ML VIAL IV PUSH ×2 (08:27→17:11)
--- NOTE | 2023-07-15 08:49 | PM.IMPN ---
Progress Note: A&P Assessment and Plan (1) COPD (chronic obstructive pulmonary disease): Code(s): J44.9 - Chronic obstructive pulmonary disease, unspecified Status: Acute (2) Community acquired pneumonia: Code(s): J18.9 - Pneumonia, unspecified organism Status: Acute Plan COPD exacerbation possible community acquired pneumonia sepsis secondary to COPD -dyspnea, coarse lung sounds -LA elevated 2.6->2.4, WBC 16k, tachycardic, tachypnic -abx: rocephin and azithromycin -CXR concerning for ILD -dc Solu-Medrol 120 mg than 40 mg q.8 hours per strategic communications manager -continue nebs, will change albuterol to Xopenex for tachycardia, q6hr. Patient received racemic epinephrine -will trend labs, check procalc, inflammatory markers -COVID neg, flu neg, checking legionella, strep, mycoplasma, pneumococcal -O2 as needed to keep O2 >90%, currently 2L O2 by [place] -pain control prn tylenol, norco -home uses Symbicort, spiriva, albuterol -PT/OT consulted Possible fluid overload Lasix 40 mg IV once and bid s/w azithromycin and ceftriaxone IV Discontinue IV fluid order echo, pending ct 07/14 Diffuse lung disease, likely a combination of severe emphysema and mild chronic interstitial lung disease. venous doppler negative of DVT delirium resolved -earlier in the day was confused at home. notes that patient's confusion is already improving throughout the day. patient is oriented x3, does not recall her confusion episode which appears to have resolved on my assessment -h/o confusion with UTI, however UTI ruled out - is concerned patient may have taken her evening meds this morning chronic conditions -DMII: A1c, accucheck ACHS, hypoglycemia protocol. Holding home metformin -GERD: Omeprazole -sinus tachycardia: Continue home metoprolol -hemorrhoids -anxiety: Continue home Xanax, duloxetine -hyperlipidemia: Does not tolerate statins, on praluent, aspirin Diet: Regular DVT ppx: lovenox GI ppx: PPI Code status: DNR Disposition: home in 2-3 days Subjective Date/time seen: 07/15/23 08:49 Interval history: I saw exam patient today, patient still has shortness breath, cough, has some improvement. No other issue even over the night, Exam Narrative: - GENERAL: Pleasant elderly woman in respiratory distress. - EYES: EOMI. Anicteric. - HENT: dry mucous membranes. Poor dentition - LUNGS: Coarse lung sounds throughout, wheezing b/l lungs, scattered crackles bilateral base - CARDIOVASCULAR: Tachycardic and regular rhythm. No murmur - ABDOMEN: Soft, non-tender and non-distended. No palpable masses. - EXTREMITIES: No edema. Peripheral pulses 2+. Non-tender. - NEUROLOGIC: No focal neurological deficits. CN II-XII grossly intact. - PSYCHIATRIC: Awake, Alert and oriented x 3. Appropriate mood and affect. - SKIN: No rashes or lesions. Warm. - LYMPH: No cervical lymphadenopathy. Objective Data Vital Signs Vital Signs: Vital Signs - 24 hr 07/14/23 08:50 07/14/23 09:00 07/14/23 09:00 Temperature Pulse Rate 121 H 121 H Respiratory Rate 20 Blood Pressure Pulse Oximetry 98 Oxygen Delivery Nasal Cannula Nasal Cannula Oxygen Flow Rate 2 2 Fraction of Inspired Oxygen 07/14/23 12:00 07/14/23 14:28 07/14/23 13:25 Temperature 97.2 F L Pulse Rate 90 110 H 92 Respiratory Rate 18 20 Blood Pressure 119/58 L Pulse Oximetry 97 Oxygen Delivery Oxygen Flow Rate Fraction of Inspired Oxygen 07/14/23 13:35 07/14/23 16:00 07/14/23 20:27 Temperature Pulse Rate 94 105 H 114 H Respiratory Rate 20 Blood Pressure Pulse Oximetry Oxygen Delivery Oxygen Flow Rate Fraction of Inspired Oxygen 07/14/23 20:00 07/14/23 20:00 07/14/23 20:30 Temperature Pulse Rate 102 H 102 H Respiratory Rate 20 Blood Pressure Pulse Oximetry 97 Oxygen Delivery Nasal Cannula Oxygen Flow Rate 2 Fraction of Inspired Oxygen 07/14/23 20:30 07/14/23 20:40 09/
[2023-07-15 12:20] LABS: Glucose Point of Care 191 mg/dl (65-105)
[2023-07-15 17:08] LABS: Glucose Point of Care 296 mg/dl (65-105)
[2023-07-15] MEDS: INSULIN ASPART (*BKC) 100 UNITS/ML SUB-Q (17:31)
[2023-07-15] MEDS: AZITHROMYCIN 500 MG/NS 250 ML 500 MG/250 ML BAG 250 MG IVPB (17:47)
--- NOTE | 2023-07-15 20:46 | PM.PNPUL ---
Progress Note: A&P Assessment and Plan (1) COPD (chronic obstructive pulmonary disease): Code(s): J44.9 - Chronic obstructive pulmonary disease, unspecified Status: Acute Assessment and Plan: This 83-year-old female with a history of COPD chronically on maintenance bronchodilators with no previous pulmonary function testing being available presented with shortness of breath of several days duration, mild leukocytosis, mild lactic acid elevation, hypoxemia but no hypercapnia.? The patient has been treated with multiple medications for pneumonia, COPD exacerbation and probably for congestive heart failure.? Chest x-ray is not diagnostic. ? She has small infiltrates at bases bilaterally of unclear significance.? She has no pleural effusions.? Physical exam shows crackles at bases only.? Three virus testing negative by PCR.? Patient's respiratory status has improved.? Will proceed with chest CT with contrast to characterize basal infiltrates and also exclude pulmonary embolism.? Now off IV steroids for now.? Repeat COVID test was negative Jul 14. 07/14/23 CTA = No pulmonary embolus. Sensitivity is mildly decreased by motion artifact. Diffuse lung disease, likely a combination of severe emphysema and mild chronic interstitial lung disease. Much of her condition has improved with diuresis, so cardiac dysfunction seems to be playing a role. She is close to her baseline, may be ready for discahrge soon. Subjective Date/time seen: 07/15/23 20:46 Interval history: Hospital follow up visit: 83-year-old female was admitted to the hospital with a history of shortness of breath of several days duration.? The patient has a history of COPD and has been on maintenance bronchodilators.? No prior pulmonary function testing is available.? Patient is followed by pulmonary services at [facility].? She was in her usual state of health, was in pulmonary rehab to 3 days a week until several days prior to this admission when she started to have a shortness of breath and fatigue.? 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 She also had some wheezing.? Upon evaluation in the emergency room, chest x-ray showed possible basal infiltrates bilaterally but no pleural effusion.? She had no hypercapnia on arterial blood gases; BNP was elevated in the range of 700.? She had mild leukocytosis and mild elevation of lactic acid.? 07/15 The patient has been treated with antibiotics IV steroids for COPD exacerbation or lower respiratory tract infection.? She has also had diuretics.? Patient's respiratory status has improved.?She feels closer to her baseline. She is not having wheezing, cough, sputum production, fever, chills, or hemoptysis.? She has no lower extremity edema. Diuretics made a significant improvement in her condition. Review of Systems Review of Systems: All systems reviewed & are unremarkable except as noted in HPI and below Exam Narrative: GEN: Alert, oriented, not in distress. HEENT: pupils are equal, EOMI, symmetrical face; oral membranes moist, Mallampati II airway NECK: Trachea is midline CHEST: Equal air entry, symmetric excursion, few basilar crackles CV: Regular S1S2 no m/g/r Extremities : no clubbing, cyanosis, and almost no edema PSYCH: normal thought and speech Objective Data Vital Signs Vital Signs: Vital Signs - 24 hr 07/14/23 22:04 07/15/23 00:00 07/15/23 04:00 Temperature 35.8 C L Pulse Rate 101 H 102 H 101 H Respiratory Rate 20 Blood Pressure 125/90 Pulse Oximetry 98 Oxygen Delivery Oxygen Flow Rate Fraction of Inspired Oxygen 07/15/23 06:00 07/15/23 07:56 07/15/23 07:57 Temperature 36.2 C L Pulse Rate 95 107 H Respiratory Rate 20 20 Blood Pressure 128/72 Pulse Oximetry 98 99 Oxygen Delivery Nasal Cannula Oxygen Flow Rate 2
[2023-07-15 23:26] LABS: Pneumococcal Antigen Urine Not Detected (Not Detected)
[2023-07-16] VITALS (18 sets, daily range): BP systolic 99–140; BP diastolic 67–75; PULSE 82–113; RESP 14–20; TEMP 36.4–36.6; O2SAT 96–100
[2023-07-16 05:58] LABS: Basophils Percent Auto 0.3 % (0.2-1.2); Eosinophils Percent Auto 0.1 % (0-4.4); Hematocrit 36.2 % (37.0-47.0); Hemoglobin 10.8 g/dL (12.0-15.0); Immature Granulocyte Absolute 0.26 K/mm3 (0.00-0.031); Immature Granulocyte Percent A 1.8 % (0-0.5); Lymphocytes Absolute Auto 2.55 K/mm3 (0.9-3.2); Lymphocytes Percent Auto 17.6 % (18.3-44.2); Mean Corpuscular HGB Conc 29.8 g/dl (32-36); Mean Corpuscular Hemoglobin 26.1 pg (26-34); Mean Corpuscular Volume 87.4 fl (80-100); Mean Platelet Volume 8.8 fl (7.4-10.4); Monocytes Absolute Auto 1.5 K/mm3 (0.1-0.6); Monocytes Percent Auto 10.2 % (2.6-8.5); Neutrophils Absolute Auto 10.1 K/mm3 (1.3-6.7); Platelet Count Result 369 k/mm3 (150-375); Red Blood Count 4.14 M/mm3 (4.2-5.4); Red Cell Distribution Width 13.4 % (11.5-14.5); White Blood Count 14.5 K/mm3 (4.5-10.0)
[2023-07-16 06:11] LABS: Anion Gap 11 mmol/L (8-16); Blood Urea Nitrogen 44 mg/dL (7-17); Calcium 8.2 mg/dL (8.4-10.2); Carbon Dioxide 30 mmol/L (22-30); Chloride 97 mmol/L (98-107); Estimated CRCL calculation 25 ml/min; Estimated Glomerular Filt Rate 43; Glucose 146 mg/dL (65-110); Potassium 2.8 mmol/L (3.4-5.0); Sodium 138 mmol/L (137-145)
[2023-07-16 06:35] LABS: Hypochromasia 1+ (NORMAL); Platelet Estimate Adequate (Adequate); Schistocytes None Seen (NORMAL)
--- NOTE | 2023-07-16 07:26 | PM.IMPN ---
Progress Note: A&P Assessment and Plan (1) COPD (chronic obstructive pulmonary disease): Code(s): J44.9 - Chronic obstructive pulmonary disease, unspecified Status: Acute (2) Community acquired pneumonia: Code(s): J18.9 - Pneumonia, unspecified organism Status: Acute (3) Acute on chronic congestive heart failure with left ventricular diastolic dysfunction: Code(s): I50.33 - Acute on chronic diastolic (congestive) heart failure Status: Acute Plan COPD exacerbation possible community acquired pneumonia sepsis secondary to COPD -dyspnea, coarse lung sounds -LA elevated 2.6->2.4, WBC 16k, tachycardic, tachypnic -abx: rocephin and azithromycin -CXR concerning for ILD -dc Solu-Medrol 120 mg than 40 mg q.8 hours per chha -continue nebs, will change albuterol to Xopenex for tachycardia, q6hr. Patient received racemic epinephrine -will trend labs, check procalc, inflammatory markers -COVID neg, flu neg, checking legionella, strep, mycoplasma, pneumococcal -O2 as needed to keep O2 >90%, currently 2L O2 by [place] -pain control prn tylenol, norco -home uses Symbicort, spiriva, albuterol -PT/OT consulted s/w azithromycin and ceftriaxone IV Discontinue IV fluid order echo, pending ct 07/14 Diffuse lung disease, likely a combination of severe emphysema and mild chronic interstitial lung disease. venous doppler negative of DVT delirium resolved -earlier in the day was confused at home. notes that patient's confusion is already improving throughout the day. patient is oriented x3, does not recall her confusion episode which appears to have resolved on my assessment -h/o confusion with UTI, however UTI ruled out - is concerned patient may have taken her evening meds this morning Acute on chronic diastolic dysfunction fluid overload Lasix 40 mg IV once and bid since 13/07 Echocardiogram July 14 report ?1. Definity contrast administered improved wall motion interpretation. ? 2. Left ventricular chamber dimension is normal. ? 3. Left ventricular systolic function is hyperdynamic, estimated at >70%. ? 4. The left ventricular diastolic function is grade I diastolic dysfunction. ? 5. E/e' 12 is mildly elevated. ? 6. There is mild aortic valve sclerosis. ? 7. No pulmonary hypertension, estimated pulmonary arterial systolic pressure is 22 mmHg. now euvolemia change to lasix 20 mg bid po hypokalemia k2.8 Replete with potassium chloride Follow-up BMP in a.m. chronic conditions -DMII: A1c, accucheck ACHS, hypoglycemia protocol. Holding home metformin -GERD: Omeprazole -sinus tachycardia: Continue home metoprolol -hemorrhoids -anxiety: Continue home Xanax, duloxetine -hyperlipidemia: Does not tolerate statins, on praluent, aspirin Diet: Regular DVT ppx: lovenox GI ppx: PPI Code status: DNR Disposition: home in 2-3 days Subjective Date/time seen: 07/16/23 07:26 Interval history: I saw and examined patient today, patient feels better, patient has mild cough, shortness breast is improving. Denies chest pain, abdomen pain, nausea vomiting diarrhea Exam Narrative: - GENERAL: Pleasant elderly woman in respiratory distress. - EYES: EOMI. Anicteric. - HENT: dry mucous membranes. Poor dentition - LUNGS: No wheezing no respiratory distress, coarse breath sounds bilateral base - CARDIOVASCULAR: Tachycardic and regular rhythm. No murmur - ABDOMEN: Soft, non-tender and non-distended. No palpable masses. - EXTREMITIES: No edema. Peripheral pulses 2+. Non-tender. - NEUROLOGIC: No focal neurological deficits. CN II-XII grossly intact. - PSYCHIATRIC: Awake, Alert and oriented x 3. Appropriate mood and affect. - SKIN: No rashes or lesions. Warm. - LYMPH: No cervical lymphadenopathy. Objective Data Vital Signs Vital Signs: Vital Signs - 24 hr 07/15/23 07:56 07/15/23 07:57 07/15/23 08:26 Temperature Pulse Rate 107 H 116 H Respiratory Rate 20 Blood Pressure
[2023-07-16] MEDS: IPRATROPIUM BR 0.02% INH SOLN 0.5 MG/2.5 ML VIAL INHALATION ×3 (07:46→19:51)
[2023-07-16] MEDS: LEVALBUTEROL NEB 1.25 MG/3 ML INHALATION ×3 (07:46→19:51)
[2023-07-16] MEDS: FLUTICASONE/SALMETEROL 115-21 MCG INHALER 1 PUFF 2 PUFF INHALATION ×2 (07:46→19:52)
[2023-07-16 08:45] LABS: Glucose Point of Care 165 mg/dl (65-105)
[2023-07-16] MEDS: KCL 20MEQ/0.9% SOD CHL 1,000 ML 100 ML IV CONT (08:56)
[2023-07-16] MEDS: FUROSEMIDE 20 MG TABLET PO ×2 (09:00→17:37)
[2023-07-16] MEDS: LORazepam (*CRX) 0.5 MG TABLET PO ×2 (09:00→20:06)
[2023-07-16] MEDS: METOPROLOL TARTRATE 50 MG TAB PO ×2 (09:00→20:06)
[2023-07-16] MEDS: predniSONE 20 MG, predniSONE 10 MG 30 MG PO (09:00)
[2023-07-16] MEDS: DULoxetine HCL 60 MG CAPSULE.DR PO ×2 (09:00→17:37)
[2023-07-16] MEDS: ENOXAPARIN 40 MG/0.4 ML SYRINGE SUB-Q (09:00)
[2023-07-16] MEDS: POTASSIUM CHLORIDE 20 MEQ PACKET (FOR LIQUID) 40 MEQ PO ×2 (09:00→17:37)
[2023-07-16] MEDS: PANTOPRAZOLE 40 MG TABLET PO (09:00)
[2023-07-16] MEDS: ASPIRIN 81 MG CHEWABLE TABLET PO (09:00)
[2023-07-16 12:24] LABS: Glucose Point of Care 197 mg/dl (65-105)
[2023-07-16] MEDS: INSULIN ASPART (*BKC) 100 UNITS/ML SUB-Q (17:38)
[2023-07-16 17:43] LABS: Glucose Point of Care 313 mg/dl (65-105)
[2023-07-16] MEDS: AZITHROMYCIN 500 MG/NS 250 ML 500 MG/250 ML BAG 250 MG IVPB (18:11)
[2023-07-17] VITALS (13 sets, daily range): BP systolic 120–142; BP diastolic 70–74; PULSE 79–108; RESP 12–22; TEMP 36.6; O2SAT 86–100
[2023-07-17 00:31] LABS: Glucose Point of Care 149 mg/dl (65-105)
[2023-07-17 04:41] LABS: Legionella pneumophila Ag Ur Not Detected (Not Detected)
[2023-07-17 08:24] LABS: Glucose Point of Care 144 mg/dl (65-105)
[2023-07-17] MEDS: PANTOPRAZOLE 40 MG TABLET PO (08:56)
[2023-07-17] MEDS: FUROSEMIDE 20 MG TABLET PO (08:56)
[2023-07-17] MEDS: DULoxetine HCL 60 MG CAPSULE.DR PO (08:56)
[2023-07-17] MEDS: predniSONE 20 MG, predniSONE 10 MG 30 MG PO (08:56)
[2023-07-17] MEDS: LORazepam (*CRX) 0.5 MG TABLET PO (08:56)
[2023-07-17] MEDS: METOPROLOL TARTRATE 50 MG TAB PO (08:56)
[2023-07-17] MEDS: POTASSIUM CHLORIDE 20 MEQ PACKET (FOR LIQUID) 40 MEQ PO (08:56)
[2023-07-17] MEDS: ASPIRIN 81 MG CHEWABLE TABLET PO (08:56)
--- NOTE | 2023-07-17 09:09 | PM.IMPN ---
Progress Note: A&P Assessment and Plan (1) COPD (chronic obstructive pulmonary disease): Code(s): J44.9 - Chronic obstructive pulmonary disease, unspecified Status: Acute (2) Community acquired pneumonia: Code(s): J18.9 - Pneumonia, unspecified organism Status: Acute (3) Acute on chronic congestive heart failure with left ventricular diastolic dysfunction: Code(s): I50.33 - Acute on chronic diastolic (congestive) heart failure Status: Acute Plan COPD exacerbation possible community acquired pneumonia sepsis secondary to COPD -dyspnea, coarse lung sounds -LA elevated 2.6->2.4, WBC 16k, tachycardic, tachypnic -abx: rocephin and azithromycin -CXR concerning for ILD -dc Solu-Medrol 120 mg than 40 mg q.8 hours per reflector driller and deburrer -continue nebs, will change albuterol to Xopenex for tachycardia, q6hr. Patient received racemic epinephrine -will trend labs, check procalc, inflammatory markers -COVID neg, flu neg, checking legionella, strep, mycoplasma, pneumococcal -O2 as needed to keep O2 >90%, currently 2L O2 by [place] -pain control prn tylenol, norco -home uses Symbicort, spiriva, albuterol -PT/OT consulted Received azithromycin and ceftriaxone IV order echo, pending ct 07/14 Diffuse lung disease, likely a combination of severe emphysema and mild chronic interstitial lung disease. venous doppler negative of DVT Changed to Levaquin 750 mg daily p.o. for 5 more days, prednisone 30 mg daily 4 more days per reflector driller and deburrer recommendation delirium resolved -earlier in the day was confused at home. notes that patient's confusion is already improving throughout the day before the admission Acute on chronic diastolic dysfunction fluid overload Lasix 40 mg IV once and bid since 13/07 Echocardiogram July 14 report ?1. Definity contrast administered improved wall motion interpretation. ? 2. Left ventricular chamber dimension is normal. ? 3. Left ventricular systolic function is hyperdynamic, estimated at >70%. ? 4. The left ventricular diastolic function is grade I diastolic dysfunction. ? 5. E/e' 12 is mildly elevated. ? 6. There is mild aortic valve sclerosis. ? 7. No pulmonary hypertension, estimated pulmonary arterial systolic pressure is 22 mmHg. euvolemia change to lasix 20 mg bid po Change Lasix to 20 mg daily p.o. at discharge hypokalemia k2.8 Replete with potassium chloride Follow-up BMP in a.m. potassium 4.8 chronic conditions -DMII: A1c, accucheck ACHS, hypoglycemia protocol. Holding home metformin -GERD: Omeprazole -sinus tachycardia: Continue home metoprolol -hemorrhoids -anxiety: Continue home Xanax, duloxetine -hyperlipidemia: Does not tolerate statins, on praluent, aspirin Diet: Regular DVT ppx: lovenox GI ppx: PPI Code status: DNR Disposition: home in 2-3 days Subjective Date/time seen: 07/17/23 09:09 Interval history: I saw and examined patient today, patient feels better, patient has mild cough, shortness of breath improving significantly Denies chest pain, abdomen pain, nausea vomiting diarrhea Exam Narrative: - GENERAL: Pleasant elderly woman in respiratory distress. - EYES: EOMI. Anicteric. - HENT: dry mucous membranes. Poor dentition - LUNGS: No wheezing no respiratory distress, - CARDIOVASCULAR: Tachycardic and regular rhythm. No murmur - ABDOMEN: Soft, non-tender and non-distended. No palpable masses. - EXTREMITIES: No edema. Peripheral pulses 2+. Non-tender. - NEUROLOGIC: No focal neurological deficits. CN II-XII grossly intact. - PSYCHIATRIC: Awake, Alert and oriented x 3. Appropriate mood and affect. - SKIN: No rashes or lesions. Warm. - LYMPH: No cervical lymphadenopathy. Objective Data Vital Signs Vital Signs: Vital Signs - 24 hr 07/16/23 12:00 07/16/23 13:23 07/16/23 13:54 Temperature 97.6 F Pulse Rate 85 82 84 Respiratory Rate 16 20 Blood Pressure 140/75 Pulse Oximetry 100 Oxygen Delivery Oxygen Flow R
[2023-07-17] MEDS: IPRATROPIUM BR 0.02% INH SOLN 0.5 MG/2.5 ML VIAL INHALATION (09:57)
[2023-07-17] MEDS: LEVALBUTEROL NEB 1.25 MG/3 ML INHALATION (09:58)
[2023-07-17] MEDS: FLUTICASONE/SALMETEROL 115-21 MCG INHALER 1 PUFF 2 PUFF INHALATION (09:58)
--- NOTE | 2023-07-17 10:07 | PM.PNPUL ---
Progress Note: A&P Assessment and Plan (1) COPD (chronic obstructive pulmonary disease): Code(s): J44.9 - Chronic obstructive pulmonary disease, unspecified Status: Acute Assessment and Plan: This 83-year-old female with a history of COPD chronically on maintenance bronchodilators with no previous pulmonary function testing being available presented with shortness of breath of several days duration, mild leukocytosis mild elevation of lactic acid, hypoxemia but no hypercapnia (7.41/39/87.? 07/15 The patient has been treated with multiple medications for pneumonia, COPD exacerbation and probably for congestive heart failure.? Chest x-ray is not diagnostic. ? She has? small infiltrates at bases bilaterally of unclear significance.? She has no pleural effusions.? Physical exam shows crackles at bases only.? Three virus testing negative by PCR.? Patient's respiratory status has improved.? Will proceed with chest CT with contrast to characterize basal infiltrates and also exclude pulmonary embolism.? Now off IV steroids for now.? Repeat COVID test was negative Sept . CTA = No pulmonary embolus. Sensitivity is mildly decreased by motion artifact. Diffuse lung disease, likely a combination of severe emphysema and mild chronic interstitial lung disease. 07/17 patient tells me that she is feeling back to her normal. Her breathing is at normal. She uses a walker walking in the room. She denies cough or phlegm production. Currently she is on 4.5 L nasal cannula oxygen with saturations 100%. From a pulmonary perspective patient is ready to be discharged on these pulmonary medications: Prednisone 30 mg p.o. q.day x4 days Levaquin 750 mg p.o. q.day x5 days Symbicort 160-4.5 at 2 puffs b.i.d.. Spiriva Respimat 2.5 mcg at 1 puff b.i.d. albuterol 2 puffs q.4 hours p.r.n. shortness of breath or wheezing oxygen per formal home O2 assessment which I have ordered Oxygen at 4 L nasal cannula at night (previous settings). Patient is followed at the [facility] with Daniella jasmine. I have told her to call the clinic tomorrow in order to schedule an appropriate follow-up visit. Discuss with Dr Vergara. Call with questions Subjective Date/time seen: 07/17/23 10:07 Interval history: 9/1/23: new consult his 83-year-old female was admitted to the hospital 2 days ago with a history of shortness of breath of several days duration.? The patient has a history of COPD and has been on maintenance bronchodilators.? No prior pulmonary function testing is available.? Patient is followed by pulmonary services at [facility].? Reportedly she was in her usual state of health, even doing pulmonary rehab to 3 days a week until several days prior to this admission when she started to have a shortness of breath and fatigue.? 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 She also had some wheezing.? Upon evaluation in the emergency room, chest x-ray showed possible basal infiltrates bilaterally but no pleural effusion.? She had no hypercapnia on arterial blood gases; BNP was elevated in the range of 700.? She had mild leukocytosis and mild elevation of lactic acid.? The patient has been treated with antibiotics IV steroids presumably for COPD exacerbation or lower respiratory tract infection.? She also receiving treatment with diuretics.? Patient's respiratory status has improved.? Upon questioning she admitted feeling better.? She no longer has wheezing cough sputum production fever chills or hemoptysis.? She has no lower extremity edema. 07/15 No prior pulmonary function testing is available.? Patient is followed by pulmonary services at [facility].? Reportedly she was in her usual state of health, even doing pulmonary rehab to 3 days a week until several days prior to this admission when she started to have a shortness of breath and fatigue.? Reportedly the patient also noticed some
[2023-07-17 11:42] LABS: Basophils Absolute Auto 0.1 K/mm3 (0.0-0.1); Basophils Percent Auto 0.3 % (0.2-1.2); Eosinophils Absolute Auto 0.1 K/mm3 (0-0.3); Eosinophils Percent Auto 0.5 % (0-4.4); Hematocrit 37.4 % (37.0-47.0); Hemoglobin 10.9 g/dL (12.0-15.0); Immature Granulocyte Absolute 0.55 K/mm3 (0.00-0.031); Immature Granulocyte Percent A 3.2 % (0-0.5); Lymphocytes Absolute Auto 3.88 K/mm3 (0.9-3.2); Lymphocytes Percent Auto 22.7 % (18.3-44.2); Mean Corpuscular HGB Conc 29.1 g/dl (32-36); Mean Corpuscular Hemoglobin 26.2 pg (26-34); Mean Corpuscular Volume 89.9 fl (80-100); Monocytes Absolute Auto 1.6 K/mm3 (0.1-0.6); Monocytes Percent Auto 9.3 % (2.6-8.5); Platelet Count Result 397 k/mm3 (150-375); Red Blood Count 4.16 M/mm3 (4.2-5.4); Red Cell Distribution Width 13.4 % (11.5-14.5); White Blood Count 17.1 K/mm3 (4.5-10.0)
[2023-07-17 11:51] LABS: Anion Gap 12 mmol/L (8-16); Blood Urea Nitrogen 31 mg/dL (7-17); Calcium 8.5 mg/dL (8.4-10.2); Carbon Dioxide 28 mmol/L (22-30); Chloride 98 mmol/L (98-107); Estimated CRCL calculation 29 ml/min; Estimated Glomerular Filt Rate 53; Glucose 159 mg/dL (65-110); Potassium 4.8 mmol/L (3.4-5.0); Sodium 138 mmol/L (137-145)
[2023-07-17 12:07] LABS: Hypochromasia 1+ (NORMAL); Platelet Estimate Increased (Adequate); Schistocytes None Seen (NORMAL)
--- NOTE | 2023-07-17 12:19 | PM.DS ---
DS: Admitting Diagnosis Discharge Date Today Admitting Diagnosis (1) COPD (chronic obstructive pulmonary disease): ?Code(s): J44.9 - Chronic obstructive pulmonary disease, unspecified ?Status:?Acute (2) Community acquired pneumonia: ?Code(s): J18.9 - Pneumonia, unspecified organism ?Status:?Acute Acute on chronic diastolic heart failure DS: Discharge Diagnosis Discharge Diagnosis (1) COPD (chronic obstructive pulmonary disease): Code(s): J44.9 - Chronic obstructive pulmonary disease, unspecified Status: Acute (2) Community acquired pneumonia: Code(s): J18.9 - Pneumonia, unspecified organism Status: Acute (3) Acute on chronic congestive heart failure with left ventricular diastolic dysfunction: Code(s): I50.33 - Acute on chronic diastolic (congestive) heart failure Status: Acute DS: Summary Hospital Course Hospital Course: Per H&P, patient is an 83-year-old female with past medical history COPD, type 2 diabetes, GERD, hemorrhoids, says hypertension presents to hospital with confusion and dyspnea. was concerned when she made odd statements about strange men being in her bed.? Patient otherwise with the usual state of health and even seen her PCP earlier this week.? Patient had been having increasing complaints of catching her breath.? She has COPD with no home oxygen therapy.? does not recall her last COPD exacerbation.? No longer smokes.? No recent travels, no sick contacts. In the ED:WBC 16k, LA 2.6, flu neg and covid neg. Started on rocephin and azithromycin for possible CAP.? On the medical floor patient had significant wheezing with tachypnea and tachycardia and started patient on Solu-Medrol. The following medication issues have been addressed in the hospitalization COPD exacerbation possible community acquired pneumonia sepsis secondary to COPD -dyspnea, coarse lung sounds -LA elevated 2.6->2.4, WBC 16k, tachycardic, tachypnic -abx: rocephin and azithromycin -CXR concerning for ILD -dc Solu-Medrol 120 mg than 40 mg q.8 hours per security developer -continue nebs, will change albuterol to Xopenex for tachycardia, q6hr. Patient received racemic epinephrine -will trend labs, check procalc, inflammatory markers -COVID neg, flu neg, checking legionella, strep, mycoplasma, pneumococcal -O2 as needed to keep O2 >90%, currently 2L O2 by NE -pain control prn tylenol, norco -home uses Symbicort, spiriva, albuterol -PT/OT consulted Received azithromycin and ceftriaxone IV order echo, pending ct 07/14 Diffuse lung disease, likely a combination of severe emphysema and mild chronic interstitial lung disease. venous doppler negative of DVT Changed to Levaquin 750 mg daily p.o. for 5 more days, prednisone 30 mg daily 4 more days per security developer recommendation delirium resolved -earlier in the day was confused at home. notes that patient's confusion is already improving throughout the day before the admission Acute on chronic diastolic dysfunction fluid overload Lasix 40 mg IV once and bid since 13/07 Echocardiogram July 14 report ?1. Definity contrast administered improved wall motion interpretation. ? 2. Left ventricular chamber dimension is normal. ? 3. Left ventricular systolic function is hyperdynamic, estimated at >70%. ? 4. The left ventricular diastolic function is grade I diastolic dysfunction. ? 5. E/e' 12 is mildly elevated. ? 6. There is mild aortic valve sclerosis. ? 7. No pulmonary hypertension, estimated pulmonary arterial systolic pressure is 22 mmHg. euvolemia change to lasix 20 mg bid po Change Lasix to 20 mg daily p.o. at discharge hypokalemia k2.8 Replete with potassium chloride Follow-up BMP in a.m. potassium 4.8 chronic conditions -DMII: A1c, accucheck ACHS, hypoglycemia protocol. Holding home metformin during hospitalization -GERD: Omeprazole -sinus tachycardia: Continue home metoprolol -hemorrhoids -anxiety: Con
[2023-07-17 12:27] LABS: Glucose Point of Care 176 mg/dl (65-105)
--- NOTE | 2023-07-17 12:45 | HOMEO2EVAL ---
Evaluation was performed at [facility] Home Oxygen Evaluation RC: Home Oxygen (O2) Evaluation Start: 07/17/23 09:08 Freq: ONCE Status: Active Protocol: RPE Activity Type Activity Date Activity User E-sign Co-sign Detail Recorded Client Recorded Date Recorded By Document 07/17/23 09:45 [facility] [id number] 07/17/23 10:08 [facility] Document 07/17/23 09:47 [facility] [id number] 07/17/23 10:08 [facility] Document 07/17/23 09:48 [facility] [id number] 07/17/23 10:08 [facility] Document 07/17/23 09:50 [facility] [id number] 07/17/23 10:08 [facility] Document 07/17/23 09:52 [facility] [id number] 07/17/23 10:08 [facility] Document 07/17/23 09:55 [facility] [id number] 07/17/23 10:08 [facility] 07/17/23 07/17/23 07/17/23 09:45 09:47 09:48 Home O2 Evaluation [Oxygen] -Test Phase Resting Resting Resting -Oxygen Delivery Room Air Nasal Cannula Nasal Cannula -Oxygen Flow Rate (L/min) 3 3 [Pulse Oximetry] -Pulse Oximetry (90-100 %) 86 L 87 L 92 [Pulse Rate] -Pulse Rate (60-100 beats/min) 83 85 86 [Evaluation] -Activity Tolerance Fair Fair Fair -Rating of Perceived Dyspnea (PD) +3 Moderate +2 Mild, Some +2 Mild, Some Difficulty, But Difficulty, Difficulty, Can Continue Noticeable to Noticeable to the Observer the Observer -Rate of Perceived Exertion (PE) 13 Somewhat 12 10 Query Text:Click the Protocol Button Hard to View the RPE Scale [Exercise] -Ambulation Distance (feet) 0 -Ambulation Distance (meters) 0 [Comments] -Home Oxygen Evaluation Comments pt from laying sitting- to sitting. increased to 3l increased to 3l /m /m [Charges] -Treatment Charges O2 Evaluation - Inpatient 07/17/23 07/17/23 07/17/23 09:50 09:52 09:55 Home O2 Evaluation [Oxygen] -Test Phase Exercise Exercise Resting -Oxygen Delivery Nasal Cannula Nasal Cannula Nasal Cannula -Oxygen Flow Rate (L/min) 4 4 2 [Pulse Oximetry] -Pulse Oximetry (90-100 %) 95 86 L 96 [Pulse Rate] -Pulse Rate (60-100 beats/min) 98 94 88 [Evaluation] -Activity Tolerance Good Fair Good -Rating of Perceived Dyspnea (PD) +3 Moderate +3 Moderate +1 Mild, Difficulty, But Difficulty, But Noticeable to Can Continue Can Continue the Participant but Not to an Observer -Rate of Perceived Exertion (PE) 11 Fairly light 13 Somewhat Query Text:Click the Protocol Button Hard to View the RPE Scale [Exercise] -Ambulation Distance (feet) 55 40 -Ambulation Distance (meters) 16.76 12.19 [Comments] -Home Oxygen Evaluation Comments increased to 4l 2l/m at rest /m and 4l/m with activity : unable to determine needs at [facility] [Charges] -Treatment Charges
--- NOTE | 2023-07-17 12:45 | PCRCNOTE ---
Home oxygen eval complete. Pt requires 2l/m at rest and 4l/m with any exertion. Family states that pt has portable tanks at home as well as a concentrator. Unable to determine needs at [facility].
--- NOTE | 2023-07-17 17:41 | PC.NURSE ---
Radio Engineering Teacher sent medications to different pharmacy as the pharmacy medications were previously sent to is closed for the holiday.
[2023-07-21 21:05] LABS: S. pneumonia Serotype 1 (1) <0.3; S. pneumonia Serotype 12 (12F) <0.3; S. pneumonia Serotype 14 (14) <0.3; S. pneumonia Serotype 17 (17F) <0.3; S. pneumonia Serotype 18C (56) <0.3; S. pneumonia Serotype 19 (19F) <0.3; S. pneumonia Serotype 2 (2) <0.3; S. pneumonia Serotype 20 (20) <0.3; S. pneumonia Serotype 22 (22F) <0.3; S. pneumonia Serotype 23 (23F) <0.3; S. pneumonia Serotype 3 (3) <0.3; S. pneumonia Serotype 34 (10A) <0.3; S. pneumonia Serotype 4 (4) <0.3; S. pneumonia Serotype 43 (11A) <0.3; S. pneumonia Serotype 5 (5) <0.3; S. pneumonia Serotype 51 (7F) <0.3; S. pneumonia Serotype 54 (15B) <0.3; S. pneumonia Serotype 57 (19A) <0.3; S. pneumonia Serotype 68 (9V) <0.3; S. pneumonia Serotype 6B (26) <0.3; S. pneumonia Serotype 70 (33F) <0.3; S. pneumonia Serotype 8 (8) <0.3; S. pneumonia Serotype 9 (9N) <0.3
== END 2023-07-17 13:45 | disposition home or self-care (01) | DRG 871 ==
LOC: ANHED 13:26 → ANH3MEDSUR 16:38 → ANH3MED 17:39
PROVIDERS: Internal Medicine Pulmonary Disease; Admitting Provider Student in an Organized Health Care Education/Training Program; Emergency Provider Emergency Medicine; PCP Internal Medicine; Visit Provider Hospitalist
DX: A41.9 Sepsis, unspecified organism (principal); I50.33 Acute on chronic diastolic (congestive) heart failure; J18.9 Pneumonia, unspecified organism; J44.0 Chronic obstructive pulmonary disease with (acute) lower respiratory infection; J44.1 Chronic obstructive pulmonary disease with (acute) exacerbation; R09.02 Hypoxemia; Z20.822 Contact with and (suspected) exposure to COVID-19; K21.9 Gastro-esophageal reflux disease without esophagitis; E11.9 Type 2 diabetes mellitus without complications; I11.0 Hypertensive heart disease with heart failure; E78.5 Hyperlipidemia, unspecified; E87.6 Hypokalemia; R41.0 Disorientation, unspecified; R00.0 Tachycardia, unspecified; F41.9 Anxiety disorder, unspecified; K64.9 Unspecified hemorrhoids; Z66 Do not resuscitate; Z90.49 Acquired absence of other specified parts of digestive tract; Z90.710 Acquired absence of both cervix and uterus
CPT/HCPCS: 36415; 36600; 70450; 71045; 71275; 80048; 80053; 81001; 82805; 82948; 83036; 83605; 83735; 83880; 84145; 85025; 85652; 86140; 86317; 86738; 87449; 87635; 87636; 87899; 93005; 93970; 94618; 94640; 96361; 96365; 96367; 96372; 96375; 97110; 97162; 97166; 97530; 97535; 99285; A9270; C8929; G0378; J0456; J0696; J1650; J1815; J1940; J2920; J2930; J3480; J7120; J7512; Q9957; Q9967

== ENCOUNTER 2023-10-18 16:01 | Emergency (ER) | payer MEDICARE, SELFPAY ==
[2023-10-18] VITALS (19 sets, daily range): BP systolic 118–146; BP diastolic 62–95; PULSE 79–110; RESP 15–28; O2SAT 95–100
--- NOTE | ~2023-10-18 | XR_ITS ---
EXAM: XR elbow LT min 3V DATE: 10/18/2023 17:27 HISTORY: fall, LIMITED MOVEMENT . COMPARISON: None available. FINDINGS: Normal mineralization. No fracture or dislocation. No lytic or blastic lesion. Joint space s are maintained. Lateral epicondylar enthesopathy. No erosion or periosteal change. Soft tissues wit hin normal limits. IMPRESSION: No acute osseous finding in the left elbow. Reviewed, dictated and finalized at location K. GE AGENT
--- NOTE | ~2023-10-18 | XR_ITS ---
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 RESULT: Lines, tubes, and devices: None. Lungs and pleura: Senescent and emphysematous changes, bibasilar scar/atelectasis, otherwise clear. Cardiomediastinal silhouette: Stable. Other: No acute osseous or upper abdominal finding. IMPRESSION: No acute cardiopulmonary process. Reviewed, dictated and finalized at location K. ING LURE ASSEMBLER
--- NOTE | ~2023-10-18 | CT_ITS ---
EXAMINATION: CT brain wo con DATE: 10/18/2023 17:17 INDICATION: fall . TECHNIQUE: Computed tomography (CT) of the head was performed without intravenous contrast. The mA wa s adjusted according to patient size. Iterative reconstruction technique was employed. The dose-lengt h product was 605.33 mGy-cm. COMPARISON: 07/13/2023. FINDINGS: No acute intracranial hemorrhage or extra-axial fluid collection. No hydrocephalus, mass, or herniation. No acute ischemic infarct. Unremarkable dural venous sinus attenuation. No acute osseous abnormality. The aerated spaces are clear. Mild atrophy and chronic white matter change. Atherosclerotic intracranial calcification. IMPRESSION: No acute intracranial process. Reviewed, dictated and finalized at location K. ERNITY ADVISER
--- NOTE | ~2023-10-18 | CT_ITS ---
EXAMINATION: CT cervical spine wo con DATE: 10/18/2023 17:20 INDICATION: fall TECHNIQUE: Computed tomography (CT) of the cervical spine was performed without intravenous contrast. Automated exposure control and iterative reconstruction technique were employed. The dose-length pro duct was 214.45 mGy-cm. COMPARISON: None. FINDINGS: Vertebral Body Alignment: Intact. Grade 1 anterolistheses at C4-5 and C7-T1, likely on a degenerative basis Craniocervical and atlantoaxial alignment: Moderate degenerative change. Alignment intact. Osseous structures/fracture: No evidence of a lytic or blastic process in the visualized spine. No e vidence of acute fracture. Unfused posterior C1 arch. Cervical soft tissues: The paraspinal soft tissues planes are maintained. Trace right mastoid fluid. Biapical pleural scar. Severe emphysematous change Degenerative changes: Multilevel severe degenerative disc disease and facet arthropathy. Multilevel s evere neural foraminal narrowing. No severe central canal narrowing. IMPRESSION: No acute fracture or traumatic malalignment in the cervical spine. Reviewed, dictated and finalized at location K. E PRESSER
--- NOTE | 2023-10-18 19:13 | PC.NURSE ---
Assumed care of pt from JOSE ALBERTO Martínez at this time.
--- NOTE | 2023-10-18 20:14 | ED.FALL ---
HPI - Fall General Chief Complaint: Fall Stated Complaint: fall -on blood thinners Time Seen by Provider: 10/18/23 19:35 History of Present Illness HPI Narrative: Patient is an 83-year-old female history of COPD on 2 L nasal cannula presenting after a fall. Patient's is at bedside and helps with the history. States that she has had a couple falls in the last few days. Patient's states that she feels somewhat frequently because she moves too fast. States that she landed on her left elbow and has had pain there. She denies striking her head or losing consciousness. She denies chest pain or new shortness of breath. States that she is chronically somewhat short of breath due to her COPD. She was treated for a COPD exacerbation several days ago. States that she is managing her doxycycline tomorrow. She denies abdominal pain but does report some dysuria. No further complaints. She is asking to go home. Related Data Home Medications Medication Instructions Recorded Confirmed Aspirin Child 81 mg PO DAILY 07/12/23 10/22/23 Tylenol Extra Strength 500 mg PO Q6H PRN Pain (Scale 07/12/23 10/22/23 Score 1-3) albuterol sulfate 90 mcg/actuation 2 puff inhalation QID PRN sob 07/12/23 10/22/23 aerosol inhaler alirocumab 75 mg/mL subcutaneous 75 mg subcut [id number] 07/12/23 10/22/23 pen injector (Praluent Pen) budesonide-formoterol HFA 160 2 puff inhalation BID 07/12/23 10/22/23 mcg-4.5 mcg/actuation aerosol inhaler (Symbicort) duloxetine 60 mg capsule,delayed 60 mg PO BID 07/12/23 10/22/23 release lorazepam 0.5 mg tablet 0.5 mg PO Q12H 07/12/23 10/22/23 metformin 500 mg tablet 500 mg PO DAILY 07/12/23 10/22/23 metoprolol tartrate 50 mg tablet 50 mg PO Q12H 07/12/23 10/22/23 omeprazole 20 mg capsule,delayed 20 mg PO DAILY 07/12/23 10/22/23 release tiotropium bromide 2.5 1 puff inhalation BID 07/12/23 10/22/23 mcg/actuation mist for inhalation (Spiriva Respimat) Allergies Allergy/AdvReac Type Severity Reaction Status Date / Time ampicillin AdvReac Other Verified 10/22/23 11:31 Review of Systems Review of Systems: All systems reviewed & are unremarkable except as noted in HPI and below PMFSH Past Medical History Medical History Back pain COPD (chronic obstructive pulmonary disease) Diabetes GERD (gastroesophageal reflux disease) Hemorrhoids Surgical History Surgical History History of cholecystectomy History of hysterectomy Family History Family History Father Leukemia Social History Social History Smoking packs per day: 1 Smoking cigarettes per day: 20.0 Years smoked: 20 Smoking pack-years: 20.00 Smoking status: Former smoker Tobacco type: cigarettes Alcohol intake: never Substance use: never Lack of Transportation: No Lack of Food: Never True Current Housing: I Have Housing Concerned About Future Housing: No Difficulty Paying Gas/Electric Bills: No Difficulty Paying for Meds: No Currently Unemployed: No Education: High School Diploma/GED Difficulty w/ Childcare or Family Care: No Spiritual care concerns: No Exam Narrative: GENERAL: Nontoxic, lying in bed in no acute distress, pleasant cooperative HEAD: Normocephalic, atraumatic. EYES: PERRLA and EOMI. ENT: Mucous membranes moist. NECK: Supple. CHEST: diminished breath sounds but no crackles or wheezing, No respiratory distress. on baseline 2 L nasal cannula HEART: Regular rate and rhythm. ABDOMEN: Soft, nontender, nondistended EXTREMITIES: Normal range of motion. Mild tenderness of the left elbow diffusely, superficial skin tears right wrist with clean dressing in place SKIN: Warm, dry, as above NEURO: Alert and oriented x3. PSYCH: Nor
[2023-10-18 20:41] LABS: Basophils Percent Auto 0.2 % (0.2-1.2); Eosinophils Absolute Auto 0.2 K/mm3 (0-0.3); Eosinophils Percent Auto 1.1 % (0-4.4); Hematocrit 40.5 % (37.0-47.0); Immature Granulocyte Absolute 0.14 K/mm3 (0.00-0.031); Immature Granulocyte Percent A 0.9 % (0-0.5); Lymphocytes Absolute Auto 3.77 K/mm3 (0.9-3.2); Lymphocytes Percent Auto 25.1 % (18.3-44.2); Mean Corpuscular HGB Conc 29.6 g/dl (32-36); Mean Corpuscular Hemoglobin 25.4 pg (26-34); Mean Corpuscular Volume 85.6 fl (80-100); Monocytes Absolute Auto 1.8 K/mm3 (0.1-0.6); Monocytes Percent Auto 11.7 % (2.6-8.5); Neutrophils Absolute Auto 9.1 K/mm3 (1.3-6.7); Platelet Count Result 347 k/mm3 (150-375); Red Blood Count 4.73 M/mm3 (4.2-5.4); Red Cell Distribution Width 15.2 % (11.5-14.5)
[2023-10-18 20:41] LABS: Appearance Urine Cloudy (Clear); Bacteria Urine 4+ /hpf; Bilirubin Urine Negative (Negative); Color Urine Yellow (Yellow); Glucose Urine UA Negative (Negative); Ketones Urine Trace mg/dL (Negative); Leukocyte Esterase Ur 2+ LEU/UL (Negative); Nitrate Urine Positive (Negative); Non Pathogenic Casts 0-2; Protein Urine 1+ mg/dL (Negative); Specific Grav Ur 1.023 (1.001-1.035); Squamous Epithelial Cell Urine None seen /hpf (Few); Urobilinogen Urine 0.2 mg/dL (<2.0); WBC Urine >100 /hpf
[2023-10-18] MEDS: SODIUM CHLORIDE 0.9% IV 1,000 ML 999 ML IV CONT (20:41)
[2023-10-18] MEDS: ACETAMINOPHEN 500 MG TABLET 1000 MG PO (20:41)
[2023-10-18 20:51] LABS: Add Urine Microscopic? YES
[2023-10-18 20:53] LABS: Alanine Aminotransferase 21 U/L (6-35); Albumin Level 3.9 g/dL (3.5-5.1); Alkaline Phosphatase 123 U/L (38-126); Anion Gap 9 mmol/L (8-16); Aspartate Amino Transferase 27 U/L (14-36); Bilirubin,Total 1.1 mg/dL (0.2-1.3); Blood Urea Nitrogen 29 mg/dL (7-17); Calcium 8.9 mg/dL (8.4-10.2); Carbon Dioxide 32 mmol/L (22-30); Chloride 100 mmol/L (98-107); Estimated CRCL calculation 33 ml/min; Estimated Glomerular Filt Rate 60; Glucose 178 mg/dL (65-110); Potassium 3.5 mmol/L (3.4-5.0); Sodium 141 mmol/L (137-145)
[2023-10-18 21:01] LABS: Hypochromasia 1+ (NORMAL); Platelet Estimate Adequate (Adequate); Schistocytes None Seen (NORMAL)
[2023-10-18 21:02] LABS: Anisocytosis 2+ (NORMAL)
[2023-10-18 21:12] LABS: Influenza A QL RT-PCR Negative (Negative); Influenza B QL RT-PCR Negative (Negative); RSV RNA, RT-PCR Negative (Negative); SARS-CoV-2 RNA PCR Negative (Negative)
[2023-10-18] MEDS: cefTRIAXone 2 GM/NS 100 ML 2 GM/100 ML BAG IVPB (22:00)
[2023-10-19 00:16] VITALS: BP 155/70; PULSE 80; RESP 22; O2SAT 96
== END 2023-10-19 00:33 | disposition home or self-care (01) ==
PROVIDERS: Emergency Provider Emergency Medicine
DX: S51.012A Laceration without foreign body of left elbow, initial encounter (principal); N39.0 Urinary tract infection, site not specified; Z20.822 Contact with and (suspected) exposure to COVID-19; J44.9 Chronic obstructive pulmonary disease, unspecified; E11.9 Type 2 diabetes mellitus without complications; Z90.710 Acquired absence of both cervix and uterus; Z90.49 Acquired absence of other specified parts of digestive tract; Z79.82 Long term (current) use of aspirin; Z87.891 Personal history of nicotine dependence; Z79.84 Long term (current) use of oral hypoglycemic drugs; W19.XXXA Unspecified fall, initial encounter
CPT/HCPCS: 36415; 70450; 71045; 72125; 73080; 80053; 81001; 85025; 87077; 87086; 87186; 87637; 96361; 96365; 99284; A9270; J0696; J7030

== ENCOUNTER 2023-10-22 09:27 | Observation (INO) | payer MEDICARE, SELFPAY ==
[2023-10-22] VITALS (16 sets, daily range): BP systolic 120–174; BP diastolic 74–102; PULSE 103–108; RESP 16–27; TEMP 36.3–36.7; O2SAT 98–100; BMI 22.8
--- NOTE | ~2023-10-22 | XR_ITS ---
EXAMINATION: XR chest 2V DATE: 10/22/2023 11:18 INDICATION: Weakness and shortness of breath TECHNIQUE: AP and lateral views of the chest are obtained. COMPARISON: 10/18/2023 FINDINGS: There is mild atelectasis of the lung bases. No pleural effusion or pneumothorax. The cardi omediastinal silhouette is normal. There is moderate thoracic spondylosis. IMPRESSION: 1. Mild atelectasis of the lung bases. Reviewed, dictated and finalized at location F. NICS TECHNICIAN
--- NOTE | 2023-10-22 09:28 | ECG_ITS ---
Measurements Intervals [place] Rate: 105 P: 50 MI: 148 QRS: 48 QRSD: 123 T: 24 QT: 366 QTc: 484 Interpretive Statements SINUS TACHYCARDIA RIGHT BUNDLE BRANCH BLOCK Electronically Signed On 10-22-2023 10:33:47 ACCESS DEVELOPER by Armin Mendez M.D.
[2023-10-22 09:52] LABS: Basophils Percent Auto 0.3 % (0.2-1.2); Eosinophils Absolute Auto 0.2 K/mm3 (0-0.3); Eosinophils Percent Auto 1.5 % (0-4.4); Hematocrit 38.9 % (37.0-47.0); Hemoglobin 11.5 g/dL (12.0-15.0); Immature Granulocyte Absolute 0.11 K/mm3 (0.00-0.031); Immature Granulocyte Percent A 0.8 % (0-0.5); Lymphocytes Absolute Auto 2.61 K/mm3 (0.9-3.2); Lymphocytes Percent Auto 19.6 % (18.3-44.2); Mean Corpuscular HGB Conc 29.6 g/dl (32-36); Mean Corpuscular Hemoglobin 25.9 pg (26-34); Mean Corpuscular Volume 87.6 fl (80-100); Mean Platelet Volume 8.9 fl (7.4-10.4); Monocytes Absolute Auto 1.3 K/mm3 (0.1-0.6); Monocytes Percent Auto 10.1 % (2.6-8.5); Neutrophils Percent Auto 67.7 % (45.5-73.1); Platelet Count Result 270 k/mm3 (150-375); Red Blood Count 4.44 M/mm3 (4.2-5.4); Red Cell Distribution Width 15.5 % (11.5-14.5); White Blood Count 13.3 K/mm3 (4.5-10.0)
[2023-10-22 10:03] LABS: Alanine Aminotransferase 20 U/L (6-35); Albumin Level 3.9 g/dL (3.5-5.1); Alkaline Phosphatase 130 U/L (38-126); Anion Gap 7 mmol/L (8-16); Aspartate Amino Transferase 21 U/L (14-36); Bilirubin,Total 0.8 mg/dL (0.2-1.3); Blood Urea Nitrogen 18 mg/dL (7-17); Calcium 8.8 mg/dL (8.4-10.2); Carbon Dioxide 31 mmol/L (22-30); Chloride 105 mmol/L (98-107); Estimated CRCL calculation 36 ml/min; Estimated Glomerular Filt Rate > 60; Glucose 189 mg/dL (65-110); Potassium 3.1 mmol/L (3.4-5.0); Sodium 143 mmol/L (137-145)
[2023-10-22 10:04] LABS: INR 1.1; Prothrombin Time 14.2 Seconds (11.1-14.7)
[2023-10-22 10:05] LABS: Partial Thromboplastin Time 28.4 SECONDS (22.3-36.8)
[2023-10-22 10:14] LABS: NT Pro B Type Natriuretic Pept 1120 pg/mL (19.9-100); Troponin I < 0.012 ng/mL (0.000-0.034)
--- NOTE | 2023-10-22 10:46 | ED.WEAKNESS ---
HPI - Weakness General Chief complaint: Weakness <Sebastián Drake APRN - Last Filed: 10/22/23 19:01> Stated complaint: weakness, fell yesterday <Sebastián Drake APRN - Last Filed: 10/22/23 19:01> Time Seen by Provider: 10/22/23 10:30 <Sebastián Drake APRN - Last Filed: 10/22/23 19:01> Source: patient <Sebastián Drake APRN - Last Filed: 10/22/23 19:01> Mode of arrival: ambulatory <Sebastián Drake APRN - Last Filed: 10/22/23 19:01> Limitations: no limitations <Sebastián Drake APRN - Last Filed: 10/22/23 19:01> History of Present Illness HPI Narrative: Alejandra is an 83-year-old female patient presenting to the ER today for weakness and frequent falls. Patient's has been reports that she patient was seen here on Monday and diagnosed with falls and UTI. Was given antibiotics and the ER and sent home on cephalexin. Patient started the cephalexin on . Has been reports that the patient is continuously becoming more weak. Has had frequent falls over the last 3 days causing skin tears to her arms. <Sebastián Drake APRN - Last Filed: 10/22/23 19:01> Related Data Home medications: Home Medications Medication Instructions Recorded Confirmed Aspirin Child 81 mg PO DAILY 07/12/23 10/22/23 Tylenol Extra Strength 500 mg PO Q6H PRN Pain (Scale 07/12/23 10/22/23 Score 1-3) albuterol sulfate 90 mcg/actuation 2 puff inhalation QID PRN sob 07/12/23 10/22/23 aerosol inhaler alirocumab 75 mg/mL subcutaneous 75 mg subcut [id number] 07/12/23 10/22/23 pen injector (Praluent Pen) budesonide-formoterol HFA 160 2 puff inhalation BID 07/12/23 10/22/23 mcg-4.5 mcg/actuation aerosol inhaler (Symbicort) duloxetine 60 mg capsule,delayed 60 mg PO BID 07/12/23 10/22/23 release lorazepam 0.5 mg tablet 0.5 mg PO Q12H 07/12/23 10/22/23 metformin 500 mg tablet 500 mg PO DAILY 07/12/23 10/22/23 metoprolol tartrate 50 mg tablet 50 mg PO Q12H 07/12/23 10/22/23 omeprazole 20 mg capsule,delayed 20 mg PO DAILY 07/12/23 10/22/23 release tiotropium bromide 2.5 1 puff inhalation BID 07/12/23 10/22/23 mcg/actuation mist for inhalation (Spiriva Respimat) <Sebastián Drake APRN - Last Filed: 10/22/23 19:01> Allergies/Adverse reactions: Allergies Allergy/AdvReac Type Severity Reaction Status Date / Time ampicillin AdvReac Other Verified 10/22/23 11:31 <Sebastián Drake APRN - Last Filed: 10/22/23 19:01> Review of Systems Review of Systems: Pertinent positives per HPI. Patient denies any fever, chills, rash, headache, visual changes, dizziness, cough, runny nose, sore throat, shortness of breath, chest pain, palpitations, nausea, vomiting, diarrhea, constipation, abdominal pain, or any urinary issues. <Sebastián Drake APRN - Last Filed: 10/22/23 19:01> PMFSH Past Medical History Medical History: Medical History Back pain COPD (chronic obstructive pulmonary disease) Diabetes GERD (gastroesophageal reflux disease) Hemorrhoids <Sebastián Drake APRN - Last Filed: 10/22/23 19:01> Surgical History Surgical History: Surgical History History of cholecystectomy History of hysterectomy <Sebastián Drake APRN - Last Filed: 10/22/23 19:01> Family History Family History: Family History Father Leukemia <Sebastián Drake APRN - Last Filed: 10/22/23 19:01> Social History Social History: Social History Smoking packs per day: 1 Smoking cigarettes per day: 20.0 Years smoked: 20 Smoking pack-years: 20.00 Smoking status: Former smoker Tobacco type: cigarettes Alcohol intake: never Substance use: never Lack of Transportation: No Lack of Food: Never True Cur
[2023-10-22 11:33] LABS: Basophils Percent Auto 0.3 % (0.2-1.2); Eosinophils Absolute Auto 0.2 K/mm3 (0-0.3); Eosinophils Percent Auto 1.5 % (0-4.4); Hematocrit 37.4 % (37.0-47.0); Hemoglobin 10.9 g/dL (12.0-15.0); Immature Granulocyte Absolute 0.09 K/mm3 (0.00-0.031); Immature Granulocyte Percent A 0.7 % (0-0.5); Lymphocytes Absolute Auto 2.45 K/mm3 (0.9-3.2); Lymphocytes Percent Auto 19.3 % (18.3-44.2); Mean Corpuscular HGB Conc 29.1 g/dl (32-36); Mean Corpuscular Hemoglobin 25.6 pg (26-34); Mean Corpuscular Volume 87.8 fl (80-100); Mean Platelet Volume 9.1 fl (7.4-10.4); Monocytes Absolute Auto 1.4 K/mm3 (0.1-0.6); Neutrophils Absolute Auto 8.5 K/mm3 (1.3-6.7); Neutrophils Percent Auto 67.2 % (45.5-73.1); Platelet Count Result 267 k/mm3 (150-375); Red Blood Count 4.26 M/mm3 (4.2-5.4); Red Cell Distribution Width 15.5 % (11.5-14.5); White Blood Count 12.7 K/mm3 (4.5-10.0)
[2023-10-22] MEDS: POTASSIUM CHLORIDE 20 MEQ ER TABLET 40 MEQ PO (11:39)
[2023-10-22] MEDS: SODIUM CHLORIDE 0.9% IV 1,000 ML 150 ML IV CONT (11:45)
[2023-10-22 11:46] LABS: Lactic Acid Reflex 1.9 mmol/L (0.7-2.0)
[2023-10-22 11:49] LABS: CRP 0.7 mg/dL (<1.0)
[2023-10-22 12:35] LABS: Appearance Urine Clear (Clear); Bacteria Urine None Seen /hpf; Bilirubin Urine Negative (Negative); Blood Urine Negative (Negative); Color Urine Yellow (Yellow); Glucose Urine UA Negative (Negative); Ketones Urine Trace mg/dL (Negative); Leukocyte Esterase Ur Negative LEU/UL (Negative); Nitrate Urine Negative (Negative); Non Pathogenic Casts 0-2; Protein Urine 1+ mg/dL (Negative); RBC Urine 0-2 /hpf (0-2); Specific Grav Ur 1.026 (1.001-1.035); Squamous Epithelial Cell Urine None seen /hpf (Few); Urobilinogen Urine 0.2 mg/dL (<2.0); WBC Urine 0-5 /hpf; pH Urine 5.5 (5.0-9.0)
[2023-10-22 12:38] LABS: Add Urine Microscopic? YES
[2023-10-22 14:54] LABS: Influenza A QL RT-PCR Negative (Negative); Influenza B QL RT-PCR Negative (Negative); RSV RNA, RT-PCR Negative (Negative); SARS-CoV-2 RNA PCR Negative (Negative)
[2023-10-22] MEDS: SODIUM CHLORIDE 0.9% IV 1,000 ML 125 ML IV CONT (21:26)
[2023-10-22] MEDS: POTASSIUM CHLORIDE INJ 40 MEQ in SODIUM CHLORIDE 0.9% IV 500 ML 130 MEQ IVPB (21:26)
[2023-10-22] MEDS: ACETAMINOPHEN 500 MG TABLET 1000 MG PO (21:28)
[2023-10-22 21:51] LABS: Anion Gap 5 mmol/L (8-16); Blood Urea Nitrogen 14 mg/dL (7-17); Calcium 8.1 mg/dL (8.4-10.2); Carbon Dioxide 27 mmol/L (22-30); Chloride 108 mmol/L (98-107); Estimated CRCL calculation 47 ml/min; Estimated Glomerular Filt Rate > 60; Glucose 159 mg/dL (65-110); Potassium 3.6 mmol/L (3.4-5.0); Sodium 140 mmol/L (137-145)
--- NOTE | 2023-10-22 22:39 | PM.IMHP ---
H&P: HPI History of Present Illness Date/Time: 10/22/23 22:39 Chief Complaint: Weakness Narrative: This is an 83-year-old female with past medical history significant for type diabetes mellitus, GERD, COPD. Patient had been seen and evaluated the day before in the emergency room and sent home however returns today due to worsening weakness and falls. At the time of my visit I was unable to get any history from the patient. Preliminary workup was irrelevant for the most part. EXAMINATION: XR chest 2V DATE: 10/22/2023 11:18 INDICATION: Weakness and shortness of breath TECHNIQUE: AP and lateral views of the chest are obtained. COMPARISON: 10/18/2023 FINDINGS: There is mild atelectasis of the lung bases. No pleural effusion or pneumothorax. The cardiomediastinal silhouette is normal. There is moderate thoracic spondylosis. IMPRESSION: 1. Mild atelectasis of the lung bases. Review of Systems Review of Systems: ROS unobtainable: Yes unobtainable due to mental status (Obtundation) [facility] Past Medical History Medical History Back pain COPD (chronic obstructive pulmonary disease) Diabetes GERD (gastroesophageal reflux disease) Hemorrhoids Surgical History Surgical History History of cholecystectomy History of hysterectomy Family History Family History Father Leukemia Social History Social History Smoking packs per day: 1 Smoking cigarettes per day: 20.0 Years smoked: 20 Smoking pack-years: 20.00 Smoking status: Former smoker Tobacco type: cigarettes Alcohol intake: never Substance use: never Lack of Transportation: No Lack of Food: Never True Current Housing: I Have Housing Concerned About Future Housing: No Difficulty Paying Gas/Electric Bills: No Difficulty Paying for Meds: No Currently Unemployed: No Education: High School Diploma/GED Difficulty w/ Childcare or Family Care: No Spiritual care concerns: No Meds Home Medications and Allergies Home Medications Medication Instructions Recorded Confirmed Type Aspirin Child 81 mg PO DAILY 07/12/23 10/22/23 History Tylenol Extra Strength 500 mg PO Q6H PRN Pain (Scale 07/12/23 10/22/23 History Score 1-3) albuterol sulfate 90 mcg/actuation 2 puff inhalation QID PRN sob 07/12/23 10/22/23 History aerosol inhaler alirocumab 75 mg/mL subcutaneous 75 mg subcut [id number] 07/12/23 10/22/23 History pen injector (Praluent Pen) budesonide-formoterol HFA 160 2 puff inhalation BID 07/12/23 10/22/23 History mcg-4.5 mcg/actuation aerosol inhaler (Symbicort) duloxetine 60 mg capsule,delayed 60 mg PO BID 07/12/23 10/22/23 History release lorazepam 0.5 mg tablet 0.5 mg PO Q12H 07/12/23 10/22/23 History metformin 500 mg tablet 500 mg PO DAILY 07/12/23 10/22/23 History metoprolol tartrate 50 mg tablet 50 mg PO Q12H 07/12/23 10/22/23 History omeprazole 20 mg capsule,delayed 20 mg PO DAILY 07/12/23 10/22/23 History release tiotropium bromide 2.5 1 puff inhalation BID 07/12/23 10/22/23 History mcg/actuation mist for inhalation (Spiriva Respimat) furosemide 20 mg tablet 20 mg PO DAILY #30 tabs 07/17/23 10/22/23 Rx hydrocodone 5 mg-acetaminophen 325 1 tablet PO Q6H PRN Pain Rated 4-6 07/17/23 10/22/23 Rx mg tablet #10 tabs levofloxacin 750 mg tablet 750 mg PO DAILY #5 tabs 07/17/23 10/22/23 Rx prednisone 10 mg tablet 30 mg PO DAILY@0800 #11 tabs 07/17/23 10/22/23 Rx cephalexin 500 mg capsule 500 mg PO Q12H 7 days #14 caps 10/19/23 10/22/23 Rx Allergies Allergy/AdvReac Type Severity Reaction Status Date / Time ampicillin AdvReac Other Verified 10/22/23 11:31 Vital Signs Vital Signs - 24 hr 10/22/23 09:33 10/22/23 10:46 10/22/23 11:30 Temperature 98.0 F Pulse
[2023-10-23] VITALS (10 sets, daily range): BP systolic 122–139; BP diastolic 56–80; PULSE 78–105; RESP 16–22; TEMP 36.3–36.5; O2SAT 96–100
[2023-10-23] MEDS: LORazepam (*CRX) 0.5 MG TABLET PO ×3 (00:05→20:09)
[2023-10-23] MEDS: METOPROLOL TARTRATE 50 MG TAB PO ×3 (00:05→20:09)
[2023-10-23 07:53] LABS: Basophils Percent Auto 0.4 % (0.2-1.2); Eosinophils Absolute Auto 0.3 K/mm3 (0-0.3); Eosinophils Percent Auto 3.2 % (0-4.4); Hematocrit 33.4 % (37.0-47.0); Hemoglobin 9.6 g/dL (12.0-15.0); Immature Granulocyte Absolute 0.09 K/mm3 (0.00-0.031); Immature Granulocyte Percent A 1.1 % (0-0.5); Lymphocytes Absolute Auto 1.91 K/mm3 (0.9-3.2); Lymphocytes Percent Auto 24.3 % (18.3-44.2); Mean Corpuscular HGB Conc 28.7 g/dl (32-36); Mean Corpuscular Hemoglobin 25.9 pg (26-34); Mean Platelet Volume 8.9 fl (7.4-10.4); Monocytes Percent Auto 13.2 % (2.6-8.5); Neutrophils Absolute Auto 4.5 K/mm3 (1.3-6.7); Neutrophils Percent Auto 57.8 % (45.5-73.1); Platelet Count Result 210 k/mm3 (150-375); Red Blood Count 3.71 M/mm3 (4.2-5.4); Red Cell Distribution Width 15.5 % (11.5-14.5); White Blood Count 7.9 K/mm3 (4.5-10.0)
[2023-10-23 08:03] LABS: Anion Gap 2 mmol/L (8-16); Blood Urea Nitrogen 10 mg/dL (7-17); Calcium 7.9 mg/dL (8.4-10.2); Carbon Dioxide 29 mmol/L (22-30); Chloride 111 mmol/L (98-107); Estimated CRCL calculation 47 ml/min; Estimated Glomerular Filt Rate > 60; Glucose 124 mg/dL (65-110); Potassium 4.1 mmol/L (3.4-5.0); Sodium 142 mmol/L (137-145)
[2023-10-23] MEDS: FLUTICASONE/SALMETEROL 115-21 MCG INHALER 1 PUFF 2 PUFF INHALATION (08:34)
[2023-10-23] MEDS: UMECLIDINIUM BROMIDE 62.5 MCG ELLIPTA 1 PUFF INHALATION (08:34)
[2023-10-23] MEDS: SODIUM CHLORIDE 0.9% IV 1,000 ML 125 ML IV CONT (08:56)
[2023-10-23] MEDS: ENOXAPARIN 40 MG/0.4 ML SYRINGE SUB-Q (08:56)
[2023-10-23] MEDS: ASPIRIN 81 MG CHEWABLE TABLET PO (08:57)
[2023-10-23] MEDS: DULoxetine HCL 60 MG CAPSULE.DR PO ×2 (08:58→20:09)
[2023-10-23] MEDS: PANTOPRAZOLE 40 MG TABLET PO (08:58)
[2023-10-23] MEDS: predniSONE 10 MG TABLET 30 MG PO (08:58)
--- NOTE | 2023-10-23 14:02 | PM.IMPN ---
Progress Note: A&P Assessment and Plan (1) Acute on chronic congestive heart failure with left ventricular diastolic dysfunction: Code(s): I50.33 - Acute on chronic diastolic (congestive) heart failure Status: Acute Assessment and Plan: Currently on baseline oxygen 2L by nasal cannula ECHO from 07/14 reviewed Continue to monitor resume home Lasix (2) Acute hypokalemia: Code(s): E87.6 - Hypokalemia Status: Acute Assessment and Plan: K 4.1 this am continue to monitor and replace as needed (3) Weakness: Code(s): R53.1 - Weakness Status: Acute Assessment and Plan: PT/OT ordered for d/c planning may benefit from SNF could be worsened by UTI Continue Rocephin (4) Falls frequently: Code(s): R29.6 - Repeated falls Status: Acute Assessment and Plan: pt/ot eval ordered Fall precautions (5) COPD (chronic obstructive pulmonary disease): Code(s): J44.9 - Chronic obstructive pulmonary disease, unspecified Status: Acute Assessment and Plan: resumed home Lasix due to wheezing on exam this morning Continue home meds Subjective Date/time seen: 10/23/23 14:02 Interval history: Patient is an 83-year-old female with PMH of type diabetes mellitus, GERD, COPD admitted from the ER today for weakness and frequent falls. Patient was seen here on Monday and diagnosed with falls and UTI. Was given antibiotics and the ER and sent home on cephalexin. Patient started the cephalexin on . Has been reports that the patient is continuously becoming more weak. Has had frequent falls over the last 3 days causing skin tears to her arms. She is in no acute distress this morning, A&O x3. She is on baseline 2L O2 at home. PT/OT ordered for eval for placement at d/c should she need to go to SNF. She has no complaints today, but that her throat is bothering her. Lungs sounded diminished and wheezy, will restart home Lasix. Continue to monitor and d/c when stable and ready for placement. Review of Systems Review of Systems: All systems reviewed & are unremarkable except as noted in HPI and below Exam Narrative: GENERAL: Nontoxic, no acute distress, pleasant & cooperative HEAD: Normocephalic, atraumatic. EYES: PERRLA and EOMI. NECK: Supple. LUNGS: Lower lobes slightly diminished with expiratory wheezes. No respiratory distress. HEART: RRR, no murmurs ABDOMEN: Soft, nontender, nondistended. Non-tender to palpation. EXTREMITIES: No edema. SKIN: Warm, dry, no rash. NEURO: A&O x3 PSYCH: Normal mood and affect. Objective Data Vital Signs Vital Signs: Vital Signs - 24 hr 10/22/23 14:15 10/22/23 14:47 10/22/23 15:20 Temperature Pulse Rate 107 H 107 H 108 H Respiratory Rate 22 H 20 26 H Blood Pressure 174/93 H 171/87 H Pulse Oximetry Oxygen Delivery Oxygen Flow Rate Fraction of Inspired Oxygen 10/22/23 15:30 10/22/23 15:31 10/22/23 15:45 Temperature Pulse Rate 106 H 106 H 107 H Respiratory Rate 27 H 23 H 25 H Blood Pressure 156/102 H 165/81 H Pulse Oximetry Oxygen Delivery Oxygen Flow Rate Fraction of Inspired Oxygen 10/22/23 15:46 10/22/23 19:28 10/22/23 21:44 Temperature 97.4 F L Pulse Rate 106 H 103 H Respiratory Rate 23 H 18 Blood Pressure 149/75 H Pulse Oximetry 98 100 Oxygen Delivery Nasal Cannula Oxygen Flow Rate 2 Fraction of Inspired Oxygen 10/22/23 22:26 10/23/23 00:05 10/23/23 06:00 Temperature 97.3 F L Pulse Rate 105 H 87 Respiratory Rate 22 H Blood Pressure 133/80 Pulse Oximetry 100 100 Oxygen Delivery Nasal Cannula Oxygen Flow Rate 2 Fraction of Inspired Oxygen 10/23/23 08:38 10/23/23 08:57 10/23/23 08:56 Temperature Pulse Rate 84 93 Respiratory Rate 16 Blood Pressure Pulse Oximetry 99 96 Oxygen Delivery Nasal Cannula Nasal Cannula Oxygen Flow Rate 2 2 Fraction of Inspired Oxygen 28 Intake/Ou
[2023-10-23] MEDS: ACETAMINOPHEN 500 MG TABLET PO (15:36)
[2023-10-24] VITALS (10 sets, daily range): BP systolic 97–147; BP diastolic 51–76; PULSE 68–93; RESP 14–18; TEMP 35.7–36.2; O2SAT 96–100
[2023-10-24] MEDS: SODIUM CHLORIDE 0.9% IV 1,000 ML 125 ML IV CONT ×3 (01:32→23:33)
[2023-10-24 07:46] LABS: Basophils Percent Auto 0.2 % (0.2-1.2); Eosinophils Absolute Auto 0.2 K/mm3 (0-0.3); Eosinophils Percent Auto 1.9 % (0-4.4); Hematocrit 30.4 % (37.0-47.0); Immature Granulocyte Percent A 1.2 % (0-0.5); Lymphocytes Absolute Auto 2.07 K/mm3 (0.9-3.2); Lymphocytes Percent Auto 24.1 % (18.3-44.2); Mean Corpuscular HGB Conc 29.6 g/dl (32-36); Mean Corpuscular Hemoglobin 26.3 pg (26-34); Mean Corpuscular Volume 88.9 fl (80-100); Monocytes Absolute Auto 0.8 K/mm3 (0.1-0.6); Monocytes Percent Auto 8.7 % (2.6-8.5); Neutrophils Absolute Auto 5.5 K/mm3 (1.3-6.7); Neutrophils Percent Auto 63.9 % (45.5-73.1); Platelet Count Result 220 k/mm3 (150-375); Red Blood Count 3.42 M/mm3 (4.2-5.4); Red Cell Distribution Width 15.6 % (11.5-14.5); White Blood Count 8.6 K/mm3 (4.5-10.0)
[2023-10-24 08:01] LABS: Anion Gap 2 mmol/L (8-16); Blood Urea Nitrogen 8 mg/dL (7-17); Calcium 7.7 mg/dL (8.4-10.2); Carbon Dioxide 26 mmol/L (22-30); Chloride 110 mmol/L (98-107); Estimated CRCL calculation 41 ml/min; Estimated Glomerular Filt Rate > 60; Glucose 127 mg/dL (65-110); Potassium 3.5 mmol/L (3.4-5.0); Sodium 138 mmol/L (137-145)
--- NOTE | 2023-10-24 08:41 | PCPTNOTE ---
The patient treatment was not able to be completed at this time due to patient having line placed at bedside. Will plan to continue treatment per plan of care.
[2023-10-24] MEDS: PANTOPRAZOLE 40 MG TABLET PO (09:17)
[2023-10-24] MEDS: predniSONE 10 MG TABLET 30 MG PO (09:17)
[2023-10-24] MEDS: ASPIRIN 81 MG CHEWABLE TABLET PO (09:17)
[2023-10-24] MEDS: DULoxetine HCL 60 MG CAPSULE.DR PO ×2 (09:17→21:42)
[2023-10-24] MEDS: METOPROLOL TARTRATE 50 MG TAB PO ×2 (09:17→21:42)
[2023-10-24] MEDS: LORazepam (*CRX) 0.5 MG TABLET PO ×2 (09:18→21:42)
[2023-10-24] MEDS: ENOXAPARIN 40 MG/0.4 ML SYRINGE SUB-Q (09:18)
[2023-10-24] MEDS: FUROSEMIDE 20 MG TABLET PO (09:18)
[2023-10-24] MEDS: UMECLIDINIUM BROMIDE 62.5 MCG ELLIPTA 1 PUFF INHALATION (09:37)
[2023-10-24] MEDS: FLUTICASONE/SALMETEROL 115-21 MCG INHALER 1 PUFF 2 PUFF INHALATION (09:37)
--- NOTE | 2023-10-24 13:33 | PM.IMPN ---
Progress Note: A&P Assessment and Plan (1) Acute on chronic congestive heart failure with left ventricular diastolic dysfunction: Code(s): I50.33 - Acute on chronic diastolic (congestive) heart failure Status: Acute Assessment and Plan: Currently on baseline oxygen 2L by nasal cannula ECHO from 07/14 reviewed Continue to monitor resume home Lasix (2) Acute hypokalemia: Code(s): E87.6 - Hypokalemia Status: Resolved Assessment and Plan: K stable continue to monitor and replace as needed (3) Weakness: Code(s): R53.1 - Weakness Status: Acute Assessment and Plan: PT/OT ordered, appropriate for SNF and care coordination following could be worsened by UTI Continue Rocephin, d/c on PO (4) Falls frequently: Code(s): R29.6 - Repeated falls Status: Acute Assessment and Plan: pt/ot eval ordered - SNF placement pending Fall precautions (5) COPD (chronic obstructive pulmonary disease): Code(s): J44.9 - Chronic obstructive pulmonary disease, unspecified Status: Acute Assessment and Plan: resumed home Lasix Continue home meds Subjective Date/time seen: 10/24/23 13:33 Interval history: Patient is an 83-year-old female with PMH of type diabetes mellitus, GERD, COPD admitted from the ER today for weakness and frequent falls. Patient was seen here on Monday and diagnosed with falls and UTI. Was given antibiotics and the ER and sent home on cephalexin. Patient started the cephalexin on . Has been reports that the patient is continuously becoming more weak. Has had frequent falls over the last 3 days causing skin tears to her arms. She is in no acute distress this morning, A&O x3. She is on baseline 2L O2 at home. Care coordination following for placement at d/c, now just awaiting placement at SNF. She has no complaints today, at her baseline cognition. Continue to monitor and stable for d/c when ready for placement. Review of Systems Review of Systems: All systems reviewed & are unremarkable except as noted in HPI and below Exam Narrative: GENERAL: Nontoxic, no acute distress, pleasant & cooperative HEAD: Normocephalic, atraumatic. EYES: PERRLA and EOMI. NECK: Supple. LUNGS: Lower lobes slightly diminished, clear to auscultation. No respiratory distress. HEART: RRR, no murmurs ABDOMEN: Soft, nontender, nondistended. Non-tender to palpation. EXTREMITIES: No edema. SKIN: Warm, dry, no rash. NEURO: A&O x3 PSYCH: Normal mood and affect. Objective Data Vital Signs Vital Signs: Vital Signs - 24 hr 10/23/23 13:47 10/23/23 14:00 10/23/23 14:50 Temperature 97.7 F Pulse Rate 80 Respiratory Rate 20 Blood Pressure 122/56 L Pulse Oximetry 99 Oxygen Delivery Nasal Cannula Nasal Cannula Oxygen Flow Rate 2 2 10/23/23 20:09 10/23/23 20:26 10/23/23 22:00 Temperature 97.3 F L Pulse Rate 80 78 84 Respiratory Rate 18 20 Blood Pressure 139/71 Pulse Oximetry 99 Oxygen Delivery Oxygen Flow Rate 10/23/23 20:00 10/24/23 02:16 10/24/23 06:00 Temperature 97.2 F L Pulse Rate 80 Respiratory Rate 16 Blood Pressure 112/71 Pulse Oximetry 99 98 100 Oxygen Delivery Nasal Cannula Nasal Cannula Oxygen Flow Rate 2 2 10/24/23 09:17 10/24/23 09:38 10/24/23 09:15 Temperature Pulse Rate 93 Respiratory Rate Blood Pressure Pulse Oximetry 96 96 Oxygen Delivery Nasal Cannula Nasal Cannula Oxygen Flow Rate 2 2 Intake/Output Intake/Output: Intake & Output 10/21/23 10/22/23 10/23/23 10/24/23 23:59 23:59 23:59 23:59 Intake Total 290 3178 100 Balance 290 3178 100 Meds/Results Medications: Active Medications Generic Name Dose Route Start Last Admin Trade Name Niiq PRN Reason Stop Dose Admin Acetaminophen 500 mg 10/22/23 22:41 10/23/23 15:36 Acetaminophen 500 Mg Tablet PO 500 mg Q6H PRN Administration Pain (Scale Score 1-3)
--- NOTE | 2023-10-24 13:42 | PC.NURSE ---
PCT checked blood pressure on patient while up in the chair, This RN notified the hospitalist, hospitalist orders that blood pressure be rechecked in one hour and reported back to hospitalist
[2023-10-25] VITALS (8 sets, daily range): BP systolic 145–160; BP diastolic 71–89; PULSE 96–106; RESP 14–20; TEMP 36.5–36.6; O2SAT 95–100
--- NOTE | 2023-10-25 01:32 | PCRCNOTE ---
Window of time for administration has passed. See next scheduled administration.
[2023-10-25 07:09] LABS: Basophils Absolute Auto 0.1 K/mm3 (0.0-0.1); Basophils Percent Auto 0.4 % (0.2-1.2); Eosinophils Absolute Auto 0.1 K/mm3 (0-0.3); Eosinophils Percent Auto 1.2 % (0-4.4); Hematocrit 35.5 % (37.0-47.0); Hemoglobin 10.6 g/dL (12.0-15.0); Immature Granulocyte Absolute 0.12 K/mm3 (0.00-0.031); Lymphocytes Absolute Auto 3.25 K/mm3 (0.9-3.2); Lymphocytes Percent Auto 27.7 % (18.3-44.2); Mean Corpuscular HGB Conc 29.9 g/dl (32-36); Mean Corpuscular Hemoglobin 26.1 pg (26-34); Mean Corpuscular Volume 87.4 fl (80-100); Mean Platelet Volume 8.9 fl (7.4-10.4); Monocytes Absolute Auto 0.9 K/mm3 (0.1-0.6); Monocytes Percent Auto 7.8 % (2.6-8.5); Neutrophils Absolute Auto 7.3 K/mm3 (1.3-6.7); Neutrophils Percent Auto 61.9 % (45.5-73.1); Platelet Count Result 260 k/mm3 (150-375); Red Blood Count 4.06 M/mm3 (4.2-5.4); Red Cell Distribution Width 15.7 % (11.5-14.5); White Blood Count 11.7 K/mm3 (4.5-10.0)
[2023-10-25 07:19] LABS: Anion Gap 6 mmol/L (8-16); Blood Urea Nitrogen 7 mg/dL (7-17); Calcium 8.4 mg/dL (8.4-10.2); Carbon Dioxide 26 mmol/L (22-30); Chloride 106 mmol/L (98-107); Estimated CRCL calculation 47 ml/min; Estimated Glomerular Filt Rate > 60; Glucose 107 mg/dL (65-110); Potassium 3.7 mmol/L (3.4-5.0); Sodium 138 mmol/L (137-145)
[2023-10-25] MEDS: ALBUTEROL SULFATE (*SP) AEROSOL 1 PUFF 2 PUFF INHALATION (07:50)
[2023-10-25] MEDS: FLUTICASONE/SALMETEROL 115-21 MCG INHALER 1 PUFF 2 PUFF INHALATION (07:50)
[2023-10-25] MEDS: UMECLIDINIUM BROMIDE 62.5 MCG ELLIPTA 1 PUFF INHALATION (07:50)
[2023-10-25] MEDS: DULoxetine HCL 60 MG CAPSULE.DR PO ×2 (08:23→20:51)
[2023-10-25] MEDS: PANTOPRAZOLE 40 MG TABLET PO (08:23)
[2023-10-25] MEDS: LORazepam (*CRX) 0.5 MG TABLET PO ×2 (08:23→20:51)
[2023-10-25] MEDS: FUROSEMIDE 20 MG TABLET PO (08:23)
[2023-10-25] MEDS: predniSONE 10 MG TABLET 30 MG PO (08:23)
[2023-10-25] MEDS: ASPIRIN 81 MG CHEWABLE TABLET PO (08:23)
[2023-10-25] MEDS: METOPROLOL TARTRATE 50 MG TAB PO ×2 (08:23→20:51)
[2023-10-25] MEDS: BENZOCAINE/MENTHOL (*BKC) 18 EA LOZENGE 1 LOZENGE PO (08:25)
[2023-10-25] MEDS: ENOXAPARIN 40 MG/0.4 ML SYRINGE SUB-Q (08:25)
[2023-10-25] MEDS: SODIUM CHLORIDE 0.9% IV 1,000 ML 125 ML IV CONT ×2 (08:30→17:41)
[2023-10-25] MEDS: ACETAMINOPHEN 500 MG TABLET PO (08:47)
--- NOTE | 2023-10-25 10:13 | P.PNIM_ITS ---
Progress Note: A&P Assessment and Plan (1) Acute on chronic congestive heart failure with left ventricular diastolic dysfunction: Code(s): I50.33 - Acute on chronic diastolic (congestive) heart failure Status: Acute Assessment and Plan: 10/24/23: * Currently on baseline oxygen 2L by nasal cannula * ECHO from 07/14 reviewed * Continue to monitor * resume home Lasix 10/25/23: * Patient remains on her 2L NC * no change to current treatment plan (2) Acute hypokalemia: Code(s): E87.6 - Hypokalemia Status: Resolved Assessment and Plan: 10/24/23: * K stable * continue to monitor and replace as needed 10/25/23: * K+ 3.7 * continue to trend (3) Weakness: Code(s): R53.1 - Weakness Status: Acute Assessment and Plan: 10/24/23: * PT/OT ordered, appropriate for SNF and care coordination following * could be worsened by UTI * Continue Rocephin, d/c on PO 10/25/23: * Continue PT/OT * Case coordination for discharge planning and rehab needs * Continue with Rocephin, will transition to oral once approved for rehab (4) Falls frequently: Code(s): R29.6 - Repeated falls Status: Acute Assessment and Plan: 10/24/23: * pt/ot eval ordered - SNF placement pending * Fall precautions 10/25/23: * see above * Continue fall precautions (5) COPD (chronic obstructive pulmonary disease): Code(s): J44.9 - Chronic obstructive pulmonary disease, unspecified Status: Acute Assessment and Plan: 10/24/23: * resumed home Lasix * Continue home meds 10/25/23: * Continue prednisone and albuterol inhaler Time Spent With Patient Time with patient: Greater than 35 minutes Subjective Date/time seen: 10/25/23 10:13 Interval history: Patient is an 83-year-old female who was admitted yesterday 10/23/23 for weakness and frequent falls. Patient was seen here 1 week ago today in the ER and was diagnosed with falls and UTI. She was given Keflex and was sent home the same day. Patient started the cephalexin on . Since then patient has become more weak causing her to have frequent falls over the last 3 days. Work up in the hospital included a chest x-ray that shown mild atelectasis of the lung bases. UA revealed 1+ protein, trace ketones. Respiratory panel was n egative for Influenza, Covid and RSV. On examination today patient is alert and oriented x3, lying in the bed. Patient denies any fever, chills, nausea, vomiting, diarrhea, abdominal pain, chest mercedes n, or shortness of breath. Labs today reveal WBC 11.7, Hgb 10.6, Hct 35.5, Na+ 138, K+ 3.7, BUN 7, Creatinine 0.60, BG ranging 107-127. UC from previous urine culture revealing proteus mirabilis. Continue with Rocephin IV. Patient awaiting insurance approval for rehab placement. Review of Systems Review of Systems: All systems reviewed & are unremarkable except as noted in HPI and below ROS unobtainable: Yes unobtainable due to mental status (Obtundation) Constitutional: Constitutional: Reports as per HPI and Reports no additional constitutional complaints Eyes: Eyes: Reports as per HPI and Reports no additional eye complaints ENT: Reports system reviewed and no additional complaints, except as documented and Reports as per HPI Cardiovascular: Cardiovascular: Reports as per HPI and Reports no additional cardiovascular complaints Respiratory: Respiratory: Reports as per HPI and Reports no additional respiratory complaints Gastrointestinal:
--- NOTE | 2023-10-25 10:13 | PM.IMPN ---
Progress Note: A&P Assessment and Plan (1) Acute on chronic congestive heart failure with left ventricular diastolic dysfunction: Code(s): I50.33 - Acute on chronic diastolic (congestive) heart failure Status: Acute Assessment and Plan: 10/24/23: Currently on baseline oxygen 2L by nasal cannula ECHO from 07/14 reviewed Continue to monitor resume home Lasix 10/25/23: Patient remains on her 2L NC no change to current treatment plan (2) Acute hypokalemia: Code(s): E87.6 - Hypokalemia Status: Resolved Assessment and Plan: 10/24/23: K stable continue to monitor and replace as needed 10/25/23: K+ 3.7 continue to trend (3) Weakness: Code(s): R53.1 - Weakness Status: Acute Assessment and Plan: 10/24/23: PT/OT ordered, appropriate for SNF and care coordination following could be worsened by UTI Continue Rocephin, d/c on PO 10/25/23: Continue PT/OT Case coordination for discharge planning and rehab needs Continue with Rocephin, will transition to oral once approved for rehab (4) Falls frequently: Code(s): R29.6 - Repeated falls Status: Acute Assessment and Plan: 10/24/23: pt/ot eval ordered - SNF placement pending Fall precautions 10/25/23: see above Continue fall precautions (5) COPD (chronic obstructive pulmonary disease): Code(s): J44.9 - Chronic obstructive pulmonary disease, unspecified Status: Acute Assessment and Plan: 10/24/23: resumed home Lasix Continue home meds 10/25/23: Continue prednisone and albuterol inhaler Time Spent With Patient Time with patient: Greater than 35 minutes Subjective Date/time seen: 10/25/23 10:13 Interval history: Patient is an 83-year-old female who was admitted yesterday 10/23/23 for weakness and frequent falls. Patient was seen here 1 week ago today in the ER and was diagnosed with falls and UTI. She was given Keflex and was sent home the same day. Patient started the cephalexin on . Since then patient has become more weak causing her to have frequent falls over the last 3 days. Work up in the hospital included a chest x-ray that shown mild atelectasis of the lung bases. UA revealed 1+ protein, trace ketones. Respiratory panel was negative for Influenza, Covid and RSV. On examination today patient is alert and oriented x3, lying in the bed. Patient denies any fever, chills, nausea, vomiting, diarrhea, abdominal pain, chest pain, or shortness of breath. Labs today reveal WBC 11.7, Hgb 10.6, Hct 35.5, Na+ 138, K+ 3.7, BUN 7, Creatinine 0.60, BG ranging 107-127. UC from previous urine culture revealing proteus mirabilis. Continue with Rocephin IV. Patient awaiting insurance approval for rehab placement. Review of Systems Review of Systems: All systems reviewed & are unremarkable except as noted in HPI and below ROS unobtainable: Yes unobtainable due to mental status (Obtundation) Constitutional: Constitutional: Reports as per HPI and Reports no additional constitutional complaints Eyes: Eyes: Reports as per HPI and Reports no additional eye complaints ENT: Reports system reviewed and no additional complaints, except as documented and Reports as per HPI Cardiovascular: Cardiovascular: Reports as per HPI and Reports no additional cardiovascular complaints Respiratory: Respiratory: Reports as per HPI and Reports no additional respiratory complaints Gastrointestinal: Gastrointestinal: Reports as per HPI and Reports no additional gastrointestinal complaints Genitourinary: Genitourinary: Reports no additional female genitourinary complaints and Reports as per HPI Musculoskeletal: Musculoskeletal: Reports no additional musculoskeletal complaints and Reports as per HPI Integumentary/Breasts: Skin/Breast: Reports system reviewed and no additional complaints, except as docu and Reports as per HPI Neurologic: Reports system reviewed and no addition
--- NOTE | 2023-10-25 21:09 | PCRCNOTE ---
Window of time for administration has passed. See next scheduled administration.
[2023-10-26 05:34] VITALS: BP 149/74; PULSE 95; RESP 14; TEMP 36.3; O2SAT 99
[2023-10-26 07:25] VITALS: PULSE 85; RESP 18; O2SAT 99
[2023-10-26] MEDS: FLUTICASONE/SALMETEROL 115-21 MCG INHALER 1 PUFF 2 PUFF INHALATION (07:25)
[2023-10-26 07:40] LABS: Alanine Aminotransferase 20 U/L (6-35); Albumin Level 3.4 g/dL (3.5-5.1); Alkaline Phosphatase 90 U/L (38-126); Anion Gap 5 mmol/L (8-16); Aspartate Amino Transferase 29 U/L (14-36); Bilirubin,Total 0.6 mg/dL (0.2-1.3); Blood Urea Nitrogen 7 mg/dL (7-17); Calcium 8.1 mg/dL (8.4-10.2); Carbon Dioxide 29 mmol/L (22-30); Chloride 105 mmol/L (98-107); Estimated CRCL calculation 36 ml/min; Estimated Glomerular Filt Rate > 60; Glucose 103 mg/dL (65-110); Potassium 2.9 mmol/L (3.4-5.0); Sodium 139 mmol/L (137-145)
[2023-10-26 07:51] LABS: Basophils Percent Auto 0.3 % (0.2-1.2); Eosinophils Absolute Auto 0.1 K/mm3 (0-0.3); Eosinophils Percent Auto 0.8 % (0-4.4); Hematocrit 31.2 % (37.0-47.0); Hemoglobin 9.4 g/dL (12.0-15.0); Immature Granulocyte Absolute 0.12 K/mm3 (0.00-0.031); Immature Granulocyte Percent A 1.3 % (0-0.5); Lymphocytes Absolute Auto 2.71 K/mm3 (0.9-3.2); Lymphocytes Percent Auto 28.3 % (18.3-44.2); Mean Corpuscular HGB Conc 30.1 g/dl (32-36); Mean Corpuscular Hemoglobin 26.3 pg (26-34); Mean Corpuscular Volume 87.2 fl (80-100); Monocytes Absolute Auto 0.8 K/mm3 (0.1-0.6); Neutrophils Absolute Auto 5.9 K/mm3 (1.3-6.7); Neutrophils Percent Auto 61.3 % (45.5-73.1); Platelet Count Result 239 k/mm3 (150-375); Red Blood Count 3.58 M/mm3 (4.2-5.4); Red Cell Distribution Width 15.8 % (11.5-14.5); White Blood Count 9.6 K/mm3 (4.5-10.0)
[2023-10-26 09:40] VITALS: PULSE 113
[2023-10-26] MEDS: LORazepam (*CRX) 0.5 MG TABLET PO (09:40)
[2023-10-26] MEDS: ASPIRIN 81 MG CHEWABLE TABLET PO (09:40)
[2023-10-26] MEDS: predniSONE 10 MG TABLET 30 MG PO (09:40)
[2023-10-26] MEDS: FUROSEMIDE 20 MG TABLET PO (09:40)
[2023-10-26] MEDS: PANTOPRAZOLE 40 MG TABLET PO (09:40)
[2023-10-26] MEDS: METOPROLOL TARTRATE 50 MG TAB PO (09:40)
[2023-10-26 09:43] VITALS: O2SAT 96
[2023-10-26] MEDS: DULoxetine HCL 60 MG CAPSULE.DR PO (09:43)
[2023-10-26] MEDS: ENOXAPARIN 40 MG/0.4 ML SYRINGE SUB-Q (09:43)
[2023-10-26 14:00] VITALS: BP 139/73; PULSE 84; RESP 16; TEMP 35.7; O2SAT 100
--- NOTE | 2023-10-26 15:08 | PM.DS ---
DS: Admitting Diagnosis Discharge Date 10/26/23 Admitting Diagnosis acute on chronic congestive heart failure with left ventricular diastolic dysfunction acute hypokalemia weakness falls COPD DS: Discharge Diagnosis Discharge Diagnosis (1) Acute on chronic congestive heart failure with left ventricular diastolic dysfunction: Code(s): I50.33 - Acute on chronic diastolic (congestive) heart failure Status: Acute (2) Acute hypokalemia: Code(s): E87.6 - Hypokalemia Status: Resolved (3) Weakness: Code(s): R53.1 - Weakness Status: Acute (4) Falls frequently: Code(s): R29.6 - Repeated falls Status: Acute (5) COPD (chronic obstructive pulmonary disease): Code(s): J44.9 - Chronic obstructive pulmonary disease, unspecified Status: Acute DS: Summary Hospital Course Reason for hospitalization: acute on chronic congestive heart failure with left ventricular diastolic dysfunction frequent falls Hospital Course: Patient is an 83-year-old female who was admitted yesterday 10/23/23 for weakness and frequent falls. Patient was seen here 1 week ago today in the ER and was diagnosed with falls and UTI. She was given Keflex and was sent home the same day.? Patient started the cephalexin on . Since then patient has become more weak causing her to have frequent falls over the last 3 days. Work up in the hospital included a chest x-ray that shown mild atelectasis of the lung bases. UA revealed 1+ protein, trace ketones. Respiratory panel was negative for Influenza, Covid and RSV. We are trying to get SNF approval with the insurance company due to her history of falls, however they are declining at this time as the patient is not meeting their criteria. Case coordination was involved and is getting patient home health with physical therapy to assist them at home. Antibiotics were discontinued during the admission as she has reached 8 days of medication for her UTI. On examination today patient is alert and oriented x3, sitting in the chair. She denies any new complaints today. Discussed with the patient that she needs to not be impulsive and needs to slow down when she is ambulating as this can increase her fall rate at home. Labs today showed a white blood cell count of 9 9.6, hemoglobin 9.4, hematocrit 31.2, sodium 139, potassium 2.9, BUN 7, creatinine 0.8, blood sugars ranging 103-127, liver enzymes are normal. Patient is stable for discharge back to home. She will get home health with PT as this is our only option. She will need to follow up with her primary care physician in 1 week. final diagnosis: acute on chronic congestive heart failure and frequent falls Status at Discharge Cognitive/behavioral status at discharge: alert oriented x3 Functional status at discharge: uses cane/walker Overall status at discharge: patient is progressing back to baseline Time Spent with Patient Time attestation: Total time spent providing and/or coordinating discharge services: Time spent: Greater than 30 minutes Exam Narrative: General: In no acute distress, well nourished Head: atraumatic, no encephalopathy Eyes: EOMI, PERRLA, sclera clear ENT: moist mucous membranes, nasal passages clear Neck: supple, no JVD, no adenopathy, trachea midline Cardiac: Normal S1 and S2. No murmur, gallops or friction rubs, peripheral pulses intact. Respiratory: Lungs clear to auscultation, no adventitious lung sounds Gastrointestinal: soft, non-distended, non-tender, normoactive bowel sounds. : voiding without difficulty. Extremities: moves all extremities well, no edema, good ROM, strength 5/5, walks with a walker Skin: clean, dry, intact. No wounds or lesions. Neuro: Alert and oriented x4, cranial nerves intact, no neuro deficits. Psych: normal mood, normal affect, interactive DS: Data Data Completed and Pending Completed studies during hospitalization: chest x-ray Pending studies a
--- NOTE | 2023-10-29 14:00 | PC.NURSE ---
[facility] nurse called with questions regarding discharging medications. This RN verified with discharging clinician medications and verified to home health nurse. All questions answered.
== END 2023-10-26 16:30 | disposition home health service (06) ==
LOC: ANHED 13:53 → ANH3MEDSUR 15:57
PROVIDERS: Emergency Medicine; Nurse Practitioner; Nurse Practitioner Acute Care; Student in an Organized Health Care Education/Training Program; Admitting Provider Family Medicine; Emergency Provider Nurse Practitioner Family; PCP Internal Medicine; Visit Provider Student in an Organized Health Care Education/Training Program
DX: I50.33 Acute on chronic diastolic (congestive) heart failure (principal); E87.6 Hypokalemia; R53.1 Weakness; R29.6 Repeated falls; J44.9 Chronic obstructive pulmonary disease, unspecified; R00.1 Bradycardia, unspecified; I45.10 Unspecified right bundle-branch block; J98.11 Atelectasis; E11.9 Type 2 diabetes mellitus without complications; K21.9 Gastro-esophageal reflux disease without esophagitis; Z20.822 Contact with and (suspected) exposure to COVID-19; Z87.891 Personal history of nicotine dependence; Z79.82 Long term (current) use of aspirin; Z79.51 Long term (current) use of inhaled steroids; Z79.84 Long term (current) use of oral hypoglycemic drugs; Z79.899 Other long term (current) drug therapy
CPT/HCPCS: 36415; 71046; 80048; 80053; 81001; 83605; 83735; 83880; 84484; 85025; 85610; 85730; 86140; 87637; 93005; 94640; 96361; 96365; 96366; 96372; 96375; 97110; 97116; 97161; 97165; 97530; 97535; 99285; A9270; G0378; J0696; J1650; J3480; J7030; J7040; J7512

== ENCOUNTER 2023-11-16 17:43 | Inpatient (IN) | payer MEDICARE, SELFPAY ==
--- NOTE | ~2023-11-16 | CT_ITS ---
EXAMINATION: CTA chest PE protocol DATE: 11/17/2023 14:01 INDICATION: Shortness of breath. Chest tightness. TECHNIQUE: Computed tomography angiography (CTA) of the chest was performed with 100 mL Omnipaque-350 intravenous contrast timed to evaluate the pulmonary arteries. Coronal maximum intensity projection 3D-reconstructions were created by the technologist. Automated exposure control and iterative reconst ruction technique were employed. The dose-length product was 249.64 mGy-cm. COMPARISON: Chest CT 07/14/2023 FINDINGS: There is severe emphysema. There is peripheral septal thickening in the lungs with an infer ior predominance. There is mild scarring at the lung apices. No pleural effusion. Aortic atherosclero sis is noted. The heart size is normal. No pericardial effusion. There are coronary artery calcificat ions. There is no pulmonary embolus. There is a patent stent and celiac axis. There is mild thoracic spondylosis. There is a compression fracture of T11 with 1/5 loss of height. IMPRESSION: 1. No pulmonary embolus. 2. Chronic diffuse lung disease, likely a combination of severe emphysema and chronic interstitial jordy ng disease. 3. Acute versus subacute T11 compression fracture. Reviewed, dictated and finalized at location E. GHT ELEVATOR ERECTOR IMPRESSION: 1. No pulmonary embolus. 2. Chronic diffuse lung disease, likely a combination of severe emphysema and c hronic interstitial lung disease. 3. Acute versus subacute T11 compression fracture.
--- NOTE | ~2023-11-16 | XR_ITS ---
EXAMINATION: XR chest 1V portable DATE: 11/16/2023 18:03 INDICATION: Shortness of breath. TECHNIQUE: A single frontal view of the chest was obtained. COMPARISON: Chest 2 views 10/22/2023, CT cervical spine 10/18/2023, chest CT 07/14/2023 FINDINGS: There are lucencies and interstitial opacities in the lungs. There is mild scarring at the lung apices. No pleural effusion or pneumothorax. The heart size is normal. A skin fold overlies left hemithorax. IMPRESSION: 1. Diffuse lung disease, likely a combination of severe emphysema and chronic interstitial lung disea se. Reviewed, dictated and finalized at location E. NELER IMPRESSION: 1. Diffuse lung disease, likely a combination of severe emphysema and chronic i nterstitial lung disease.
--- NOTE | ~2023-11-16 | XR_ITS ---
EXAMINATION: XR barium swallow modified DATE: 11/20/2023 10:43 INDICATION: Silent aspiration. TECHNIQUE: The patient was given barium-containing material of multiple consistencies to swallow by t lizett speech pathologist while I performed fluoroscopy. Fluoroscopy exposure time was 1.3 minutes. The n umber of fluoroscopy images saved to the PACS was 1. Dose-area product was 0.964 Gy-cm^2. FINDINGS: There is reduced laryngeal elevation and reduced tongue base retraction. There is laryngeal penetrati on with thin and mildly thick liquids. IMPRESSION: 1. Laryngeal penetration with thin and mildly thick liquids. 2. Please refer to the speech therapy report for recommendations. Reviewed, dictated and finalized at location A. INUOUS MINER
--- NOTE | ~2023-11-16 | XR_ITS ---
XR chest 1V portable DATE: 11/18/2023 05:52 INDICATION: COPD exacerbation TECHNIQUE: Portable AP chest on 11/18/2023 at 0538 COMPARISON: 11/17/2023 CT pulmonary scan FINDINGS: Moderate bilateral hyperinflation and sparse markings in the upper lung zones consistent wi th bullous emphysema. Minimal atelectasis or scarring in the lower lung zones is suggested. No pleural effusion or pulmonary mass congestion or pneumothorax. Normal heart size. Aortic calcification and mild unfolding. Diffuse osteopenia. IMPRESSION: Bullous emphysema Aortic atherosclerosis Osteopenia Reviewed, dictated and finalized at location A. A CONSULTANT
--- NOTE | ~2023-11-16 | XR_ITS ---
XR chest 1V portable DATE: 11/18/2023 12:44 INDICATION: Possible aspiration TECHNIQUE: Portable upright AP views on 11/18/2023 at 1239 and 1240 hours COMPARISON: 11/18/2023 portable upright AP chest at 0538 hours 11/17/2023 CTA chest FINDINGS: Normal heart size. Aortic calcification and minimal unfolding. Chronic diminished right lung volume compared to left. Chronic bilateral likely interstitial fibrotic changes. Bullous emphysema. Diffuse osteopenia. IMPRESSION: No acute finding or significant change since earlier today Reviewed, dictated and finalized at location A. ER FINISHER
[2023-11-16 17:36] VITALS: BP 145/76; PULSE 114; RESP 38; TEMP 36.6; O2SAT 98
--- NOTE | 2023-11-16 17:44 | ECG_ITS ---
Measurements Intervals [place] Rate: 113 P: 52 FL: 155 QRS: 62 QRSD: 125 T: 25 QT: 352 QTc: 484 Interpretive Statements SINUS TACHYCARDIA RIGHT BUNDLE BRANCH BLOCK BASELINE WANDER- V1, V5-V6 ABNORMAL ECG COMPARED TO ECG 10/22/2023 09:37:48 NO SIGNIFICANT CHANGES Electronically Signed On 11-16-2023 18:12:11 POWDERMAN by Je Ortega D.O.
[2023-11-16 17:59] LABS: Basophils Absolute Auto 0.1 K/mm3 (0.0-0.1); Basophils Percent Auto 0.6 % (0.2-1.2); Eosinophils Absolute Auto 0.3 K/mm3 (0-0.3); Eosinophils Percent Auto 2.9 % (0-4.4); Hematocrit 37.3 % (37.0-47.0); Hemoglobin 10.9 g/dL (12.0-15.0); Immature Granulocyte Absolute 0.06 K/mm3 (0.00-0.031); Immature Granulocyte Percent A 0.5 % (0-0.5); Lymphocytes Absolute Auto 3.58 K/mm3 (0.9-3.2); Mean Corpuscular HGB Conc 29.2 g/dl (32-36); Mean Corpuscular Hemoglobin 25.6 pg (26-34); Mean Corpuscular Volume 87.8 fl (80-100); Mean Platelet Volume 8.7 fl (7.4-10.4); Monocytes Absolute Auto 1.4 K/mm3 (0.1-0.6); Monocytes Percent Auto 12.2 % (2.6-8.5); Neutrophils Absolute Auto 6.1 K/mm3 (1.3-6.7); Neutrophils Percent Auto 52.8 % (45.5-73.1); Platelet Count Result 376 k/mm3 (150-375); Red Blood Count 4.25 M/mm3 (4.2-5.4); Red Cell Distribution Width 15.3 % (11.5-14.5); White Blood Count 11.5 K/mm3 (4.5-10.0)
[2023-11-16 18:18] LABS: Platelet Estimate Adequate (Adequate)
[2023-11-16 18:19] LABS: Anisocytosis 1+ (NORMAL); Atypical Lymphocytes Present; Hypochromasia 1+ (NORMAL); Schistocytes None Seen (NORMAL)
--- NOTE | 2023-11-16 18:19 | ED.SOB ---
HPI - SOB/Dyspnea General Chief Complaint: Shortness of Breath/Dyspnea <Brooklyn Moctezuma PA-C - Last Filed: 11/16/23 23:13> Stated Complaint: DYSPNEA <ARMANDO Gao Last Filed: 11/16/23 23:13> Time Seen by Provider: 11/16/23 18:18 <ARMANDO Gao Last Filed: 11/16/23 23:13> Source: patient and family <ARMANDO Gao Last Filed: 11/16/23 23:13> Mode of arrival: EMS <ARMANDO Gao Last Filed: 11/16/23 23:13> Limitations: no limitations <ARMANDO Gao Last Filed: 11/16/23 23:13> History of Present Illness HPI Narrative: Patient is an 83-year-old female, with past medical history of chronic hypoxic respiratory failure on 2 L nasal cannula, COPD/ emphysema, who presents the ED via EMS with report of shortness breath. Patient reports feeling increasingly short of breath over the last couple of days. She has been using her inhalers and nebulizer treatments at home, but denies improvement. States shortness breath is worse with exertion, and she is having a hard time even walking around her house. at bedside reports patient was significantly SOB after walking to the bathroom this morning. He checked her O2 at that time and states her SaO2 in the 70s at that time. Patient does also report having exertional chest pain over the last 2 days. States pain will occur in her midsternal region with exertion. Resolved after approximately 5 minutes of resting. She does report recent cough, denies fevers. Denies known sick contacts. Denies abdominal pain, nausea, vomiting. Patient was given nebulizer treatment EN route to the ED by EMS and does report improvement of breathing. <Brooklyn Moctezuma PA-C - Last Filed: 11/16/23 23:13> Related Data Home Medications: Home Medications Medication Instructions Recorded Confirmed Aspirin Child 81 mg PO DAILY 07/12/23 11/17/23 Tylenol Extra Strength 500 mg PO Q6H PRN Pain (Scale 07/12/23 11/17/23 Score 1-3) albuterol sulfate 90 mcg/actuation 2 puff inhalation QID PRN sob 07/12/23 11/17/23 aerosol inhaler alirocumab 75 mg/mL subcutaneous 75 mg subcut [id number] 07/12/23 11/17/23 pen injector (Praluent Pen) budesonide-formoterol HFA 160 2 puff inhalation BID 07/12/23 11/17/23 mcg-4.5 mcg/actuation aerosol inhaler (Symbicort) duloxetine 60 mg capsule,delayed 60 mg PO BID 07/12/23 11/17/23 release lorazepam 0.5 mg tablet 0.5 mg PO Q12H 07/12/23 11/17/23 metformin 500 mg tablet 500 mg PO DAILY 07/12/23 11/17/23 metoprolol tartrate 50 mg tablet 50 mg PO Q12H 07/12/23 11/17/23 omeprazole 20 mg capsule,delayed 20 mg PO DAILY 07/12/23 11/17/23 release tiotropium bromide 2.5 1 puff inhalation BID 07/12/23 11/17/23 mcg/actuation mist for inhalation (Spiriva Respimat) <Brooklyn Moctezuma PA-C - Last Filed: 11/16/23 23:13> Allergies/Adverse Reactions: Allergies Allergy/AdvReac Type Severity Reaction Status Date / Time ampicillin AdvReac Other Verified 11/17/23 00:59 <Brooklyn Moctezuma PA-C - Last Filed: 11/16/23 23:13> Review of Systems Review of Systems: CONSTITUTIONAL: Denies fever, chills, or sweats. ENT: Denies rhinorrhea, congestion, sore throat. CARDIOVASCULAR: See HPI. RESPIRATORY: See HPI. GASTROINTESTINAL: Denies abdominal pain, nausea, vomiting, or diarrhea. <ARMANDO Gao Last Filed: 11/16/23 23:13> All systems reviewed & are unremarkable except as noted in HPI and below <ARMANDO Gao Last Filed: 11/16/23 23:13> PMFSH Past Medical History Medical History: Medical History Back pain COPD (chronic obstructive pulmonary disease) Diabetes GERD (gastroesophageal reflux disease) Hemorrhoids <Brooklyn Moctezuma PA-C - Last Filed: 11/16/23 23:13> Surgical History Surgical History: Surgical History (Review
[2023-11-16 18:35] LABS: Alanine Aminotransferase 19 U/L (6-35); Albumin Level 4.3 g/dL (3.5-5.1); Alkaline Phosphatase 169 U/L (38-126); Anion Gap 12 mmol/L (8-16); Aspartate Amino Transferase 27 U/L (14-36); Bilirubin,Total 0.8 mg/dL (0.2-1.3); Blood Urea Nitrogen 27 mg/dL (7-17); Calcium 9.1 mg/dL (8.4-10.2); Carbon Dioxide 27 mmol/L (22-30); Chloride 101 mmol/L (98-107); Estimated CRCL calculation 30 ml/min; Estimated Glomerular Filt Rate 53; Glucose 157 mg/dL (65-110); Potassium 3.7 mmol/L (3.4-5.0); Sodium 140 mmol/L (137-145)
[2023-11-16 18:36] LABS: Influenza A QL RT-PCR Negative (Negative); Influenza B QL RT-PCR Negative (Negative); RSV RNA, RT-PCR Negative (Negative); SARS-CoV-2 RNA PCR Negative (Negative)
[2023-11-16 18:46] LABS: NT Pro B Type Natriuretic Pept 499 pg/mL (19.9-100); Troponin I < 0.012 ng/mL (0.000-0.034)
[2023-11-16 19:15] VITALS: BP 125/80; PULSE 122; RESP 26; O2SAT 100
--- NOTE | 2023-11-16 20:52 | ECG_ITS ---
Measurements Intervals [place] Rate: 118 P: 59 [place]: 154 QRS: 77 QRSD: 122 T: 26 QT: 349 QTc: 489 Interpretive Statements SINUS TACHYCARDIA RIGHT BUNDLE BRANCH BLOCK BASELINE ARTIFACT- I, II, III, AVR, AVL, AVF, V3 ABNORMAL ECG COMPARED TO ECG 11/16/2023 17:47:43 NO SIGNIFICANT CHANGES Electronically Signed On 11-17-2023 6:39:28 CONCRETE MIXING TRUCK DRIVER by Je Ortega D.O.
[2023-11-16 21:07] LABS: Appearance Urine Clear (Clear); Bacteria Urine None Seen /hpf; Bilirubin Urine Negative (Negative); Blood Urine Negative (Negative); Color Urine Yellow (Yellow); Glucose Urine UA Negative (Negative); Ketones Urine Trace mg/dL (Negative); Leukocyte Esterase Ur 1+ LEU/UL (Negative); Nitrate Urine Negative (Negative); Non Pathogenic Casts 0-2; Protein Urine Negative (Negative); RBC Urine 0-2 /hpf (0-2); Specific Grav Ur 1.016 (1.001-1.035); Squamous Epithelial Cell Urine None seen /hpf (Few); Urobilinogen Urine 0.2 mg/dL (<2.0)
[2023-11-16 21:09] LABS: Add Urine Microscopic? YES
[2023-11-16 21:18] LABS: Troponin I < 0.012 ng/mL (0.000-0.034)
[2023-11-16 22:01] LABS: D Dimer 0.69 ug/mL (<0.48)
[2023-11-16 22:49] VITALS: BP 136/89; PULSE 125; RESP 32; O2SAT 97
[2023-11-17] VITALS (19 sets, daily range): BP systolic 115–152; BP diastolic 48–84; PULSE 86–150; RESP 18–28; TEMP 36.1–36.8; O2SAT 93–98
--- NOTE | 2023-11-17 00:55 | ADMGEN ---
This patient, Alejandra Grijalva, was admitted to Medical Room 346-01. Patient/family oriented to hospital policies and general routines including ID bracelet, bed and alarms, visiting hours, pain management, procedures, bathroom and other care routines, personal items, smoking policy, room service/diet, and visiting hours. Information on how to activate the Rapid Response Team has been discussed. Patient/Family are encouraged to report perceived risks to care and to ask questions if they do not understand what they are told or what they should do.
[2023-11-17 02:15] LABS: Troponin I < 0.012 ng/mL (0.000-0.034)
[2023-11-17] MEDS: IPRATROPIUM BR 0.02% INH SOLN 0.5 MG/2.5 ML VIAL INHALATION ×3 (07:35→21:58)
[2023-11-17] MEDS: LEVALBUTEROL NEB 1.25 MG/3 ML 0.63 MG INHALATION (07:35)
[2023-11-17] MEDS: predniSONE 20 MG TABLET 60 MG PO (08:48)
--- NOTE | 2023-11-17 14:37 | ECG_ITS ---
Measurements Intervals [place] Rate: 137 P: 210 [place]: 115 QRS: 73 QRSD: 119 T: 48 QT: 347 QTc: 525 Interpretive Statements SINUS TACHYCARDIA WITH SHORT [place] INTERVAL RIGHT BUNDLE BRANCH BLOCK BASELINE ARTIFACT- I, II, III, AVR, AVL, AVF, V2 ABNORMAL ECG COMPARED TO ECG 11/16/2023 20:56:09 HEART RATE HAS INCREASED Electronically Signed On 11-17-2023 15:25:56 INFORMATION DEVELOPER by Je Ortega D.O.
--- NOTE | 2023-11-17 14:57 | PM.IMHP ---
H&P: HPI History of Present Illness Date/Time: 11/17/23 14:57 Chief Complaint: Patient is 83-year-old female with PMHx: Of chronic hypoxic respiratory failure, currently on 2 L [place] home oxygen use, COPD/emphysema, presented to ED EMS with report of shortness of breath. Narrative: HPI, patient is unable to give reliable history, history is taken from spouse who is by the bedside. He reports pt has been experiencing increased shortness of breath over the last couple of days.? She has been using her inhalers and nebulizer treatments at home, but denies improvement.? reports shortness breath is worse with exertion, and she is having a hard time even walking around her house.? at bedside reports patient was significantly SOB after walking to the bathroom this morning. He checked her O2 at that time and? states her SaO2 in the 70s at that time.? Patient does also report having exertional chest pain over the last 2 days.? States pain will occur in her midsternal region with exertion, and normally resolve after approximately 5 minutes of resting.? She does report recent cough, denies fevers.? Denies known sick contacts.? Denies abdominal pain, nausea, vomiting. Review of Systems Review of Systems: General: Patient lying in bed, NC in place 2 L O2, in no acute distress HEENT: PERRL, EOMI. Sclera anicteric. Oral mucosa moist. Neck: Supple. No midline cervical tenderness. Respiratory: Airway patent, tachypneic, coarse lung sounds, bilateral lower bases, fine crackles Cardiovascular: Regular rate and rhythm with S1-S2. Gastrointestinal: Abdomen is soft, non-tender, and non-distended with positive bowel sounds. Skin: Warm and dry. No rash or lesions on limited exam. Extremities: No cyanosis, clubbing, or edema. Radial and pedal pulses intact. Neurological: Alert and oriented. Cranial nerves 2-12 are grossly intact. No gross focal deficits to casual conversation. Psychiatric: Pleasant and cooperative with some forgetfulness. poor Judgment a/o 2 [facility] Past Medical History Medical History Back pain COPD (chronic obstructive pulmonary disease) Diabetes GERD (gastroesophageal reflux disease) Hemorrhoids Surgical History Surgical History History of cholecystectomy History of hysterectomy Family History Family History Father Leukemia Social History Social History Smoking packs per day: 1 Smoking cigarettes per day: 20.0 Years smoked: 20 Smoking pack-years: 20.00 Smoking status: Former smoker Tobacco type: cigarettes Alcohol intake: never Substance use: never Do You Feel Safe in your Home?: Yes Lack of Transportation: No Lack of Food: Never True Current Housing: I Have Housing Concerned About Future Housing: No Difficulty Paying Gas/Electric Bills: No Difficulty Paying for Meds: No Currently Unemployed: No Education: High School Diploma/GED Difficulty w/ Childcare or Family Care: No Spiritual care concerns: No Meds Home Medications and Allergies Home Medications Medication Instructions Recorded Confirmed Type Aspirin Child 81 mg PO DAILY 07/12/23 11/17/23 History Tylenol Extra Strength 500 mg PO Q6H PRN Pain (Scale 07/12/23 11/17/23 History Score 1-3) albuterol sulfate 90 mcg/actuation 2 puff inhalation QID PRN sob 07/12/23 11/17/23 History aerosol inhaler alirocumab 75 mg/mL subcutaneous 75 mg subcut [id number] 07/12/23 11/17/23 History pen injector (Praluent Pen) budesonide-formoterol HFA 160 2 puff inhalation BID 07/12/23 11/17/23 History mcg-4.5 mcg/actuation aerosol inhaler (Symbicort) duloxetine 60 mg capsule,delayed 60 mg PO BID 07/12/23 11/17/23 History release lorazepam 0.5 mg tablet 0.5 mg PO Q12H 07/12/23
--- NOTE | 2023-11-17 14:59 | PM.CNPUL ---
Assessment and Plan Assessment and plan (1) COPD with acute exacerbation: Code(s): J44.1 - Chronic obstructive pulmonary disease with (acute) exacerbation Status: Acute Assessment and Plan: Patient with a 56 pack year history of tobacco use, severe apical predominant panlobular emphysema on her CT scan from 11/21/2022, hypoxic respiratory failure. I have no PFTs. Patient is followed by Pulmonary at [facility]. Per the she has COPD diagnosed 4 years ago with PFTs and also has interstitial lung disease. She was referred to [facility] interstitial lung disease and saw Dr. González Marie twice and he did discuss a medicine that has a 50% chance of causing diarrhea and I assume that this was an anti fibrotic like Ofev. The patient was not interested in taking that medicine. CT scan on 07/14/2023 and 11/17/2023 demonstrates severe apical predominant panlobular emphysema, mild bibasilar reticulations with minimal honeycombing. 11/17/23: Patient presents with sore throat, chest tightness, increased cough, minimal from production with wheezes in the emergency room. Chest x-ray shows no focal infiltrates. CT angiogram of the chest with apical predominant panlobular emphysema, no focal consolidations, mild bibasilar reticulations with mild honeycombing. COVID, RSV and influenza are negative. I will treat the patient for COPD exacerbation. CTA angiogram negative for PE. ABG on 2 L 7. so there is no hypercarbic respiratory failure. Plan: I will continue ipratropium nebulizers 0.5 mg and increase the frequency to q.4 hours. She is tachycardic at 130 right now and she was receiving levalbuterol. She has no wheezing and I will hold the levalbuterol at this time. I will place the patient on Solu-Medrol 20 mg IV q.6. Agree with ceftriaxone and azithromycin for possible pneumonia. Blood cultures ordered and agree with ceftriaxone and azithromycin. I will send urine for Legionella, urine pneumococcal antigen now and mycoplasma IgM in the morning. I will send a respiratory pathogen panel to [facility] looking for additional infections (results will be back in 7). I will send alpha 1 anti trypsin genotype and level on 11/18/2023. Check a chest x-ray in the morning to assess for any progression. Discussed with Ale Carrasco, Will follow with you History of Present Illness History of Present Illness Consult date: 11/17/23 Chief complaint: COPD Exacerbation,Acute Chronic Hypoxic RF,UTI Narrative: 11/17/2023: This is a new pulmonary consult for COPD and interstitial lung disease 83-year-old with a history of COPD, interstitial lung disease, diabetes, hypertension, and GERD. Patient is followed by Pulmonary at [facility]. Per the she has COPD diagnosed 4 years ago with PFTs and interstitial lung disease. She was referred to [facility] interstitial lung disease and saw Dr. González Marie twice and he did discuss a medicine that has a 50% chance of causing diarrhea and I assume that this was an anti fibrotic like Ofev. The patient was not interested in taking that medicine. CT scan on 07/14/2023 and 11/17/2023 demonstrates severe apical predominant panlobular emphysema, mild bibasilar reticulations with minimal honeycombing. The patient smoked tobacco from age [age] at 1 pack per day for total of 56 pack years. Patient was exposed to secondhand smoke from her father and currently from her who smokes and an attached garage. 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 Patient is currently on Symbicort 160-4.5 at 1 puff b.i.d. and she says this helps her tightness, she rarely uses rescue albuterol, 1 time in the last year. She takes Spiriva 1 puff q.day. she wears 2 L nasal ca
[2023-11-17 15:25] LABS: Lactic Acid Reflex 1.5 mmol/L (0.7-2.0)
[2023-11-17 15:28] LABS: Alveolar/Arterial O2 Gradient 96.9 mmHg; Base Excess ABG 2.3 mEq/l (+/-2.0); Fractional Inspired Oxygen 28 %; HCO3 ABG 24.3 mEq/l (22.0-26.0); Oxygen Saturation ABG 95.6 % (95.0-100.0); Oxyhemoglobin 93.6 % THb (90.0-100.0); PCO2 ABG 29.4 mmHg (35.0-45.0); PO2 ABG 68.1 mmHg (80.0-100.0); PO2 FiO2 Ratio Arterial Blood 2.43 %; Total Hemoglobin 11.4 g/dL (12.0-18.0)
[2023-11-17 15:31] LABS: Device NASAL CANNULA; Site Drawn RIGHT BRACHIAL; pH ABG 7.535 (7.350-7.450)
[2023-11-17] MEDS: methylPREDNISolone SOD SUCC 40 MG VIAL 20 MG IV PUSH ×2 (17:15→23:21)
[2023-11-17] MEDS: METOPROLOL TARTRATE INJ 5 MG/5 ML VIAL IV PUSH (17:16)
[2023-11-17] MEDS: DULoxetine HCL 60 MG CAPSULE.DR PO (17:16)
[2023-11-17] MEDS: AZITHROMYCIN 500 MG/NS 250 ML 500 MG/250 ML BAG 250 MG IVPB (17:16)
[2023-11-17 17:57] LABS: Troponin I < 0.012 ng/mL (0.000-0.034)
[2023-11-17 19:21] LABS: Thyroid Stimulating Hormone Reflex 0.244 uIU/mL (0.465-4.68)
[2023-11-17] MEDS: METOPROLOL TARTRATE 50 MG TAB PO (21:55)
[2023-11-17] MEDS: LORazepam (*CRX) 0.5 MG TABLET PO (21:55)
[2023-11-17 22:22] LABS: Free T4 Free Thyroxine Reflex 1.45 ng/dL (0.78-2.19)
[2023-11-18] VITALS (21 sets, daily range): BP systolic 116–136; BP diastolic 66–78; PULSE 79–113; RESP 16–20; TEMP 36.4–36.9; O2SAT 95–98
[2023-11-18 01:08] LABS: Total Triiodothyronine (T3) 0.97 NG/ML (0.97-1.69)
--- NOTE | 2023-11-18 02:37 | PCRCNOTE ---
Window of time for administration has passed. See next scheduled administration.
[2023-11-18] MEDS: IPRATROPIUM BR 0.02% INH SOLN 0.5 MG/2.5 ML VIAL INHALATION ×5 (04:23→21:20)
[2023-11-18] MEDS: methylPREDNISolone SOD SUCC 40 MG VIAL 20 MG IV PUSH ×4 (05:35→23:13)
[2023-11-18] MEDS: FLUTICASONE/UMECLIDIN/VILANTER 100-62.5-25 MCG ELLIPTA 1 PUFF INHALATION (07:58)
[2023-11-18] MEDS: LORazepam (*CRX) 0.5 MG TABLET PO ×2 (09:09→21:12)
[2023-11-18] MEDS: DULoxetine HCL 60 MG CAPSULE.DR PO ×2 (09:09→17:27)
[2023-11-18] MEDS: PANTOPRAZOLE 40 MG TABLET PO (09:09)
[2023-11-18] MEDS: METOPROLOL TARTRATE 50 MG TAB PO ×2 (09:09→21:12)
[2023-11-18] MEDS: ASPIRIN 81 MG CHEWABLE TABLET PO (09:09)
[2023-11-18] MEDS: FUROSEMIDE 20 MG TABLET PO (09:09)
--- NOTE | 2023-11-18 10:52 | PM.CNCAR ---
Assessment and Plan Assessment and plan (1) Acute on chronic respiratory failure with hypoxia: Code(s): J96.21 - Acute and chronic respiratory failure with hypoxia Status: Acute Assessment and Plan: 83-year-old female with hypertension, CHFpEF, diabetes mellitus, severe apical predominant panlobular emphysema, chronic hypoxic respiratory failure on home oxygen, dyslipidemia on PCSK9 inhibitor, history of tobacco abuse. Patient admitted to the hospital with progressively worsening shortness of breath secondary to COPD/emphysema exacerbation. She has associated symptoms of chest tightness during episodes of shortness of breath which are likely from underlying emphysema, and possibly demand ischemia from hypoxemia. No acute ST segment abnormality on EKG. Serial troponins negative. -management of acute on chronic hypoxemic respiratory failure as per primary team and pulmonology. -continue low-dose aspirin. Patient is on PCSK9 inhibitor as an outpatient. Continue low-dose beta-layo. -no indication for ischemic workup at this time, however, patient does have coronary risk factors which include age, diabetes mellitus, hypertension, history of tobacco abuse. Will determine need for noninvasive ischemic evaluation as an outpatient. Outpatient follow-up information was provided to the patient and her who was present at the time of evaluation. (2) Hypertension associated with type 2 diabetes mellitus: Code(s): E11.59 - Type 2 diabetes mellitus with other circulatory complications; I15.2 - Hypertension secondary to endocrine disorders Status: Acute Assessment and Plan: Management as per primary team. Plan Will sign off. Patient will follow-up as an outpatient. Please call with any questions. History of Present Illness History of Present Illness Consult date/time: 11/18/23 10:52 Requesting physician: Ale Mitchell APRN Reason For Visit: COPD Exacerbation,Acute Chronic Hypoxic RF,UTI Narrative: Chief complaint: Worsening shortness of breath HPI: 83-year-old female with hypertension, CHFpEF, diabetes mellitus, severe apical predominant panlobular emphysema, chronic hypoxic respiratory failure on home oxygen, dyslipidemia on PCSK9 inhibitor, history of tobacco abuse. Patient presented to [facility] Emergency Room on 11/16/2023 with worsening shortness of breath. She has baseline dyspnea on mild exertion from underlying emphysema and is on home oxygen-2 liters/minute as per patient. She has been experiencing progressively worsening shortness of breath and her symptoms got worse couple of days prior to admission to the hospital. She also has heavy sensation in the chest during episodes of shortness of breath. Denies palpitation, dizziness or syncope. She does not recall any known prior cardiac history including clinical [place], angina, heart failure or any known arrhythmias. Last LVEF was normal. EKG at presentation on my personal interpretation showed sinus tachycardia, RBBB. Troponin x3 is negative. TSH low at 0.24, free T4 normal. COVID-19 negative. chest x-ray showed Diffuse lung disease, likely a combination of severe emphysema and chronic interstitial lung disease. CTA chest- No pulmonary embolus, chronic diffuse lung disease, likely a combination of severe emphysema and chronic interstitial lung disease. Echo from 07/14/2023 reportedly showed LV EF more than 70%, grade 1 diastolic dysfunction, no significant valvular abnormality. Review of Systems Review of Systems: General: Negative for fever, chills, fatigue Psychological: Negative for anxiety, depression Ophthalmic: negative for loss of vision ENT: Negative for epistaxis, headaches Allergy and immunology: Negative for hives, nasal congestion Hematologic and lymphatic: Negative for overt bleeding problems Endocrine: Negative for hot flashes, palpitations Respiratory: Positive for worsening dyspnea Cardiovascular: Positive for
[2023-11-18] MEDS: AZITHROMYCIN 500 MG/NS 250 ML 500 MG/250 ML BAG 250 MG IVPB (13:36)
--- NOTE | 2023-11-18 16:21 | PM.PNPUL ---
Progress Note: A&P Assessment and Plan (1) COPD with acute exacerbation: Code(s): J44.1 - Chronic obstructive pulmonary disease with (acute) exacerbation Status: Acute Assessment and Plan: Patient with a 56 pack year history of tobacco use, severe apical predominant panlobular emphysema on her CT scan from 11/21/2022, hypoxic respiratory failure. I have no PFTs. Patient is followed by Pulmonary at [facility]. Per the she has COPD diagnosed 4 years ago with PFTs and also has interstitial lung disease. She was referred to [facility] interstitial lung disease and saw Dr. González Marie twice and he did discuss a medicine that has a 50% chance of causing diarrhea and I assume that this was an anti fibrotic like Ofev. The patient was not interested in taking that medicine. CT scan on 07/14/2023 and 11/17/2023 demonstrates severe apical predominant panlobular emphysema, mild bibasilar reticulations with minimal honeycombing. 11/17/23: Patient presents with sore throat, chest tightness, increased cough, minimal from production with wheezes in the emergency room. Chest x-ray shows no focal infiltrates. CT angiogram of the chest with apical predominant panlobular emphysema, no focal consolidations, mild bibasilar reticulations with mild honeycombing. COVID, RSV and influenza are negative. She is on treatment for COPD exacerbation. CTA angiogram negative for PE. ABG on 2 L 7. so there is no hypercarbic respiratory failure. Plan: continue ipratropium nebulizers 0.5 mg and increase the frequency to q.4 hours. On 11/17, she was tachycardic at 130 bpm, was on levalbuterol. She has no wheezing. Levalbuterol was stopped. She was started on Solu-Medrol 20 mg IV q.6. Agree with ceftriaxone and azithromycin for possible pneumonia. Blood cultures ordered and agree with ceftriaxone and azithromycin. I will send urine for Legionella, urine pneumococcal antigen now and mycoplasma IgM in the morning. I will send a respiratory pathogen panel to [facility] looking for additional infections (results will be back in 7). I will send alpha 1 anti trypsin genotype and level on 11/18/2023. Check a chest x-ray in the morning to assess for any progression. 11/18/23: She had 2 CXRs, several hours apart, as there was a concern for aspiration mid-day; the second CXR did not show aspiration. She is on thickened liquids, and no straws. She will get a swallow study when this is available, continue thickener and mechanical soft diet which is much easier for her to tolerate. There is no infiltrate on CXR. Subjective Date/time seen: 11/18/23 16:21 Interval history: 11/17/2023:? This is a new pulmonary consult for COPD and interstitial lung disease 83-year-old with a history of COPD, interstitial lung disease, diabetes, hypertension, and GERD. Patient is followed by Pulmonary at [facility].? Per the she has COPD diagnosed 4 years ago with PFTs and interstitial lung disease.? She was referred to [facility] interstitial lung disease and saw Dr. González Marie twice and he did discuss a medicine that has a 50% chance of causing diarrhea and I assume that this was an anti fibrotic like Ofev.? The patient was not interested in taking that medicine.? CT scan on 07/14/2023 and 11/17/2023 demonstrates severe apical predominant panlobular emphysema, mild bibasilar reticulations with minimal honeycombing. The patient smoked tobacco from age [age] at 1 pack per day for total of 56 pack years.? Patient was exposed to secondhand smoke from her father and currently from her who smokes and an attached garage.? 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
--- NOTE | 2023-11-18 18:55 | PM.IMPN ---
Progress Note: A&P Assessment and Plan (1) COPD with acute exacerbation: Code(s): J44.1 - Chronic obstructive pulmonary disease with (acute) exacerbation Status: Acute (2) Acute on chronic respiratory failure with hypoxia: Code(s): J96.21 - Acute and chronic respiratory failure with hypoxia Status: Acute (3) Diabetes: Code(s): E11.9 - Type 2 diabetes mellitus without complications Status: Acute (4) Acute on chronic congestive heart failure with left ventricular diastolic dysfunction: Code(s): I50.33 - Acute on chronic diastolic (congestive) heart failure Status: Acute (5) Weakness: Code(s): R53.1 - Weakness Status: Acute Plan Choking episode as reported by RN -order x-ray -pureed diet only until evaluated with DOT COMPLIANCE MANAGER -initiate aspiration precautions Acute on chronic respiratory failure with hypoxia, suspect COPD exacerbation, patient with history of chronic lung disease -continue oxygen titration therapy to keep SpO2 above 92% - CTA, is negative for PE patient with ongoing tachycardia - blood cultures pending -continue ipratropium nebulizers 0.5 mg and increase the frequency to q.4 hours. -continue IV steroid per pulmonology -continue ceftriaxone IV Q 24 hours -continue azithromycin IV Q 24 hours Acute on chronic diastolic congestive heart failure -currently on baseline oxygen 2 L by NC -repeat echo, last echo was 07/14/2023 -continue telemetry monitoring -continue home medication Lasix -strict I&O, check PVR q.4 hours, -consult dietitian Weakness acute on chronic, recently hospitalized for ongoing complaint of weakness -initiate fall precautions -consult PT/OT eval and treat -family has requested subacute rehabilitation post discharge -consult care coordination Sinus tachycardia, -check orthostatic vitals -check lactic acid -EKG p.r.n. as needed for chest pain complaint -cardiology consulted for, continue low-dose aspirin, continue low-dose beta-layo no indication for ischemic workup at this time -cardiology will manage patient outpatient -continue home medication Subjective Date/time seen: 11/18/23 18:55 Interval history: Chief Complaint: Patient is 83-year-old female with PMHx:? Of chronic hypoxic respiratory failure, currently on 2 L NC home oxygen use, COPD/emphysema, presented to ED EMS with report of shortness of breath. Narrative: HPI, patient is unable to give reliable history, history is taken from spouse who is by the bedside. He reports pt has been experiencing increased shortness of breath over the last couple of days.? She has been using her inhalers and nebulizer treatments at home, but denies improvement.? reports shortness breath is worse with exertion, and she is having a hard time even walking around her house.? at bedside reports patient was significantly SOB after walking to the bathroom this morning. He checked her O2 at that time and? states her SaO2 in the 70s at that time.? Patient does also report having exertional chest pain over the last 2 days.? States pain will occur in her midsternal region with exertion, and normally resolve after approximately 5 minutes of resting.? She does report recent cough, denies fevers.? Denies known sick contacts.? Denies abdominal pain, nausea, vomiting. 11/18/2023: Patient seen today she denies any overnight complaints, she denies any chest pain shortness of breath nausea vomiting. Exam Narrative: PHYSICAL EXAMINATION: GENERAL:? Elderly female, alert, oriented, no acute distress MENTAL STATUS:?? affect appropriate to mood EYES:? Extraocular movements intact, no pallor EARS:? External ears appear normal, hearing grossly normal NOSE:? Normal and patent, no discharge MOUTH:? Mucous membranes moist, tongue normal NECK:? Supple, no JVD CHEST:? Diminished breath sounds globally HEART:? Normal rate, regular rhythm, muffled heart sounds ABDOMEN:? Soft, nontender NEUROLOGICAL:? Alert, oriented,
[2023-11-19] VITALS (18 sets, daily range): BP systolic 122–151; BP diastolic 70–85; PULSE 77–101; RESP 16–22; TEMP 36.4–36.7; O2SAT 92–97
[2023-11-19] MEDS: methylPREDNISolone SOD SUCC 40 MG VIAL 20 MG IV PUSH ×4 (06:21→23:35)
[2023-11-19] MEDS: METOPROLOL TARTRATE 50 MG TAB PO ×2 (08:47→20:56)
[2023-11-19] MEDS: PANTOPRAZOLE 40 MG TABLET PO (08:47)
[2023-11-19] MEDS: LORazepam (*CRX) 0.5 MG TABLET PO ×2 (08:47→20:56)
[2023-11-19] MEDS: ASPIRIN 81 MG CHEWABLE TABLET PO (08:47)
[2023-11-19] MEDS: FUROSEMIDE 20 MG TABLET PO (08:47)
[2023-11-19] MEDS: DULoxetine HCL 60 MG CAPSULE.DR PO ×2 (08:47→17:11)
[2023-11-19] MEDS: FLUTICASONE/UMECLIDIN/VILANTER 100-62.5-25 MCG ELLIPTA 1 PUFF INHALATION (10:09)
[2023-11-19] MEDS: IPRATROPIUM BR 0.02% INH SOLN 0.5 MG/2.5 ML VIAL INHALATION ×4 (10:09→23:07)
--- NOTE | 2023-11-19 12:11 | PCSTNOTE ---
Bedside swallowing evaluation completed. Patient seen bedside with head of bed elevated to achieve upright positioning. Cursory oral peripheral examination results within functional limits. Oral cavity very dry. Patient currently on pureed diet with mildly thickened liquids following gagging/vomiting episode yesterday on chicken noodle soup following bite of baked fish. Patient has dentures but does not wear them because of ill fit, and edentulous during this evaluation. Per nurse and patient she ate pureed food at breakfast and is receiving mildly thickened liquids with no soft signs of aspiration. Prior to the gagging incident yesterday she was receiving regular diet texture with regular liquids. Trials of thin liquid by straw and pureed food by spoon were given. No soft signs of aspiration were observed, and no other swallowing difficulty noted. To evaluate patient for possible silent aspiration a modified barium swallow study is recommended. Other recommendations: minced moist diet (level 5) and regular liquids (level 0). Swallowing precaution recommendations are placed in chart. No speech therapy treatment is recommended at this time but may be after modified barium swallow study is completed. Thank you for the referral of this patient.
--- NOTE | 2023-11-19 12:13 | REHSTMBS ---
Assessment and note entered by Nathaly Decker, PIEROGI MAKER Modified Barium Swallow Evaluation
--- NOTE | 2023-11-19 12:14 | REHSTMBS ---
Assessment and note entered by Nathaly Decker, DIPPER MACHINE OPERATOR Modified Barium Swallow Evaluation ST Clinical Summary Bedside swallowing evaluation completed. Patient seen bedside with head of bed elevated to achieve upright positioning. Cursory oral peripheral examination results within functional limits. Oral cavity very dry. Patient currently on pureed diet with mildly thickened liquids following gagging/vomiting episode yesterday on chicken noodle soup following bite of baked fish. Patient has dentures but does not wear them because of ill fit, and edentulous during this evaluation. Per nurse and patient she ate pureed food at breakfast and is receiving mildly thickened liquids with no soft signs of aspiration. Prior to the gagging incident yesterday she was receiving regular diet texture with regular liquids. Trials of thin liquid by straw and pureed food by spoon were given. No soft signs of aspiration were observed, and no other swallowing difficulty noted. To evaluate patient for possible silent aspiration a modified barium swallow study is recommended. Other recommendations: minced moist diet (level 5) and regular liquids (level 0). Swallowing precaution recommendations are placed in chart. No speech therapy treatment is recommended at this time but may be after modified barium swallow study is completed. Thank you for the referral of this patient.
[2023-11-19] MEDS: AZITHROMYCIN 500 MG/NS 250 ML 500 MG/250 ML BAG 250 MG IVPB (12:24)
--- NOTE | 2023-11-19 15:04 | PM.IMPN ---
Progress Note: A&P Assessment and Plan (1) COPD with acute exacerbation: Code(s): J44.1 - Chronic obstructive pulmonary disease with (acute) exacerbation Status: Acute (2) Acute on chronic respiratory failure with hypoxia: Code(s): J96.21 - Acute and chronic respiratory failure with hypoxia Status: Acute (3) Diabetes: Code(s): E11.9 - Type 2 diabetes mellitus without complications Status: Acute (4) Acute on chronic congestive heart failure with left ventricular diastolic dysfunction: Code(s): I50.33 - Acute on chronic diastolic (congestive) heart failure Status: Acute (5) Weakness: Code(s): R53.1 - Weakness Status: Acute Plan Choking episode as reported by RN -chest x-ray reveals no acute finding -pt seen by RESEARCH ASSISTANT MEMBER, who recommends modified barium swallow study --continue with minced moist diet (level 5) and regular liquids (level 0). -continue aspiration precautions Acute on chronic respiratory failure with hypoxia, suspect COPD exacerbation, patient with history of chronic lung disease -pulmonology following patient appreciate recommendation and plan -continue oxygen titration therapy to keep SpO2 above 92% - CTA, is negative for PE patient with ongoing tachycardia - blood cultures preliminary results no growth -continue ipratropium nebulizers 0.5 mg and increase the frequency to q.4 hours. -continue IV steroid per pulmonology -continue ceftriaxone IV Q 24 hours -continue azithromycin IV Q 24 hours Acute on chronic diastolic congestive heart failure -currently on baseline oxygen 2 L by [place] -repeat echo, last echo was 07/14/2023 -continue telemetry monitoring -continue home medication Lasix -strict I&O, check PVR q.4 hours, -consult dietitian Weakness acute on chronic, recently hospitalized for ongoing complaint of weakness -initiate fall precautions -consult PT/OT eval and treat -family has requested subacute rehabilitation post discharge -consult care coordination Sinus tachycardia, -check orthostatic vitals -check lactic acid -EKG p.r.n. as needed for chest pain complaint -cardiology consulted for, continue low-dose aspirin, continue low-dose beta-layo no indication for ischemic workup at this time -cardiology will manage patient outpatient -continue home medication Subjective Date/time seen: 11/19/23 15:04 Interval history: Interval hx: Chief Complaint: Patient is 83-year-old female with PMHx:? Of chronic hypoxic respiratory failure, currently on 2 L NC home oxygen use, COPD/emphysema, presented to ED EMS with report of shortness of breath. Narrative: HPI, patient is unable to give reliable history, history is taken from spouse who is by the bedside. He reports pt has been experiencing increased shortness of breath over the last couple of days.? She has been using her inhalers and nebulizer treatments at home, but denies improvement.? reports shortness breath is worse with exertion, and she is having a hard time even walking around her house.? at bedside reports patient was significantly SOB after walking to the bathroom this morning. He checked her O2 at that time and? states her SaO2 in the 70s at that time.? Patient does also report having exertional chest pain over the last 2 days.? States pain will occur in her midsternal region with exertion, and normally resolve after approximately 5 minutes of resting.? She does report recent cough, denies fevers.? Denies known sick contacts.? Denies abdominal pain, nausea, vomiting. 11/18/2023: Patient seen today she denies any overnight complaints, she denies any chest pain shortness of breath nausea vomiting. 11/19/2023: pt seen this a.m she is lying in bed resting with eyes open, denies any c/o at this time. She denies any chocking episodes this morning. Review of Systems Review of Systems: General: Patient lying in bed, NC in place 2 L O2, in no acute distress HEENT: PERRL, EOMI. Sclera anicte
--- NOTE | 2023-11-19 18:28 | PCRCNOTE ---
Window of time for administration has passed. See next scheduled administration.
[2023-11-20] VITALS (17 sets, daily range): BP systolic 141–169; BP diastolic 71–90; PULSE 68–93; RESP 16–22; TEMP 36.1–36.6; O2SAT 94–99; BMI 23.1
[2023-11-20] MEDS: methylPREDNISolone SOD SUCC 40 MG VIAL 20 MG IV PUSH (05:38)
[2023-11-20 06:05] LABS: Alanine Aminotransferase 22 U/L (6-35); Albumin Level 3.4 g/dL (3.5-5.1); Alkaline Phosphatase 107 U/L (38-126); Anion Gap 7 mmol/L (8-16); Aspartate Amino Transferase 23 U/L (14-36); Basophils Percent Auto 0.1 % (0.2-1.2); Bilirubin,Total 0.5 mg/dL (0.2-1.3); Blood Urea Nitrogen 29 mg/dL (7-17); Calcium 8.3 mg/dL (8.4-10.2); Carbon Dioxide 29 mmol/L (22-30); Chloride 101 mmol/L (98-107); Estimated CRCL calculation 38 ml/min; Estimated Glomerular Filt Rate > 60; Glucose 172 mg/dL (65-110); Hematocrit 32.2 % (37.0-47.0); Hemoglobin 9.5 g/dL (12.0-15.0); Immature Granulocyte Absolute 0.15 K/mm3 (0.00-0.031); Immature Granulocyte Percent A 1.3 % (0-0.5); Lymphocytes Percent Auto 12.2 % (18.3-44.2); Mean Corpuscular HGB Conc 29.5 g/dl (32-36); Mean Corpuscular Hemoglobin 25.2 pg (26-34); Mean Corpuscular Volume 85.4 fl (80-100); Mean Platelet Volume 8.7 fl (7.4-10.4); Monocytes Absolute Auto 0.5 K/mm3 (0.1-0.6); Monocytes Percent Auto 4.3 % (2.6-8.5); Neutrophils Absolute Auto 9.4 K/mm3 (1.3-6.7); Neutrophils Percent Auto 82.1 % (45.5-73.1); Platelet Count Result 380 k/mm3 (150-375); Potassium 3.7 mmol/L (3.4-5.0); Red Blood Count 3.77 M/mm3 (4.2-5.4); Red Cell Distribution Width 14.9 % (11.5-14.5); Sodium 137 mmol/L (137-145); White Blood Count 11.4 K/mm3 (4.5-10.0)
[2023-11-20 07:32] LABS: Anisocytosis 1+ (NORMAL); Hypochromasia 1+ (NORMAL); Platelet Estimate Adequate (Adequate)
[2023-11-20 07:37] LABS: Schistocytes None Seen (NORMAL)
[2023-11-20 08:00] LABS: Glucose Point of Care 180 mg/dl (65-105)
[2023-11-20] MEDS: FUROSEMIDE 20 MG TABLET PO (09:00)
[2023-11-20] MEDS: LORazepam (*CRX) 0.5 MG TABLET PO ×2 (09:00→20:25)
[2023-11-20] MEDS: ASPIRIN 81 MG CHEWABLE TABLET PO (09:00)
[2023-11-20] MEDS: METOPROLOL TARTRATE 50 MG TAB PO ×2 (09:00→20:25)
[2023-11-20] MEDS: PANTOPRAZOLE 40 MG TABLET PO (09:00)
[2023-11-20] MEDS: DULoxetine HCL 60 MG CAPSULE.DR PO ×2 (09:00→17:29)
--- NOTE | 2023-11-20 10:20 | PCOTNOTE ---
Patient out of the room at this time. Patient having a MBS at this time.
--- NOTE | 2023-11-20 11:01 | PM.PNPUL ---
Progress Note: A&P Assessment and Plan (1) COPD (chronic obstructive pulmonary disease): Code(s): J44.9 - Chronic obstructive pulmonary disease, unspecified Status: Acute Assessment and Plan: The 83-year-old female patient with a history of COPD presented with shortness of breath, mild leukocytosis, mild elevation of lactic acid, and hypoxemia. She has been treated for pneumonia, COPD exacerbation and likely congestive heart failure. Her chest x-ray showed small, unclear infiltrates at the bases bilaterally and her physical exam revealed crackles at the bases. Her viral tests, including COVID, were negative. Her respiratory status has improved and a chest CT scan showed no pulmonary embolism but indicated severe emphysema and mild chronic interstitial lung disease. Currently the patient is doing better. She uses a walker and denies any cough or phlegm production. She is on 4.5 L nasal cannula oxygen with 100% saturation. She is ready for discharge with the following pulmonary medications: Prednisone 30 mg p.o. q.day x4 days, Levaquin 750 mg p.o. q.day x5 days, Symbicort 160-4.5 at 2 puffs b.i.d., Spiriva Respimat 2.5 mcg at 1 puff b.i.d, albuterol 2 puffs q.4 hours p.r.n. for shortness of breath or wheezing, and oxygen per formal home O2 assessment. She will continue with Oxygen at 4 L nasal cannula at night, which were her previous settings. I have discontinued IV Solu-Medrol and started the patient on prednisone 30 mg p.o. q.d. started in a.m. we will sign off please call with any questions. Subjective Date/time seen: 11/20/23 11:01 Interval history: The patient, a chronic smoker, has severe apical predominant panlobular emphysema and hypoxic respiratory failure. She has been diagnosed with COPD and interstitial lung disease. On 11/17/23, she presented in the emergency room with a sore throat, chest tightness, increased cough, and wheezing. A chest x-ray and CT angiogram did not reveal any focal consolidations but confirmed her severe emphysema and mild bibasilar reticulations with honeycombing. She tested negative for COVID, RSV, and influenza. Her treatment for COPD exacerbation is ongoing. The treatment plan includes increased frequency of ipratropium nebulizers, discontinuation of levalbuterol, initiation of Solu-Medrol 20 mg IV, and antibiotics for possible pneumonia. Various tests have been ordered, including for Legionella, pneumococcal antigen, mycoplasma IgM, a respiratory pathogen panel, and alpha 1 anti trypsin genotype and level. A follow-up chest x-ray is planned to check for progression. On 11/18/23, she had two CXRs due to concerns of aspiration, but no aspiration was detected. She is on a diet of thickened liquids and no straws, and a swallow study will be conducted when available. The CXR showed no infiltrate. Currently the patient has no new respiratory symptoms. She continues to have a sore throat which is mild. She has shortness of breath when ambulating in room. She has no cough wheezing chest pain palpitations orthopnea hemoptysis or night sweats. She has no lower extremity edema. She is eager to go home. Exam Narrative: GENERAL APPEARANCE: Well developed, well nourished, alert and cooperative, and appears to be in mild respiratory distress SKIN: Inspection of the skin reveals no rashes, ulcerations or petechiae. HEENT: Sclerae anicteric and conjunctivae pink and moist. Extraocular movements were intact and pupils were equal, round The oral mucosa, hard and soft palate, tongue and posterior pharynx were normal. NECK: Supple. There was no thyroid enlargement, and no tenderness, or masses were felt. CHEST: Increased aP diameter and normal contour without any kyphoscoliosis. LUNGS: Distant breath sounds bilaterally no wheezing CARDIAC: There was a regular rate and rhythm without any murmurs, gallops, rubs. ABDOMEN: Soft and nontender with normal bowel sounds. There was no organomegaly. LYMPH NODES: No lymphadenopathy wa
[2023-11-20] MEDS: IPRATROPIUM BR 0.02% INH SOLN 0.5 MG/2.5 ML VIAL INHALATION ×3 (12:09→21:30)
--- NOTE | 2023-11-20 12:16 | PC.NURSE ---
RN gave update to [facility] on patient's discharge planning status
[2023-11-20] MEDS: FLUTICASONE/UMECLIDIN/VILANTER 100-62.5-25 MCG ELLIPTA 1 PUFF INHALATION (12:17)
--- NOTE | 2023-11-20 12:44 | PCSTNOTE ---
Please refer to the Modified Barium Swallow Evaluation in the EMR.
[2023-11-20] MEDS: AZITHROMYCIN 500 MG/NS 250 ML 500 MG/250 ML BAG 250 MG IVPB (13:27)
--- NOTE | 2023-11-20 16:05 | PM.IMPN ---
Progress Note: A&P Assessment and Plan (1) COPD with acute exacerbation: Code(s): J44.1 - Chronic obstructive pulmonary disease with (acute) exacerbation Status: Acute (2) Acute on chronic respiratory failure with hypoxia: Code(s): J96.21 - Acute and chronic respiratory failure with hypoxia Status: Acute (3) Diabetes: Code(s): E11.9 - Type 2 diabetes mellitus without complications Status: Acute (4) Acute on chronic congestive heart failure with left ventricular diastolic dysfunction: Code(s): I50.33 - Acute on chronic diastolic (congestive) heart failure Status: Acute (5) Weakness: Code(s): R53.1 - Weakness Status: Acute Plan Choking episode as reported by RN -chest x-ray reveals no acute finding Modified barium swallow completed, reveals penetration to airway recommend honey thickened liquids --continue with minced moist diet (level 3) -continue aspiration precautions Acute on chronic respiratory failure with hypoxia, suspect COPD exacerbation, patient with history of chronic lung disease -pulmonology following patient appreciate recommendation and plan -continue oxygen titration therapy to keep SpO2 above 92% - CTA, is negative for PE patient with ongoing tachycardia - blood cultures preliminary results no growth -continue ipratropium nebulizers 0.5 mg and increase the frequency to q.4 hours. Per pulmonology patient can be discharged with the following medication plan Prednisone 30 mg p.o. q.day x4 days, Levaquin 750 mg p.o. q.day x5 days, Symbicort 160-4.5 at 2 puffs b.i.d., Spiriva Respimat 2.5 mcg at 1 puff b.i.d, albuterol 2 puffs q.4 hours p.r.n. for shortness of breath or wheezing, and oxygen per formal home O2 assessment. She will continue with Oxygen at 4 L nasal cannula at night, Acute on chronic diastolic congestive heart failure -currently on baseline oxygen 2 L by [place] -repeat echo, last echo was 07/14/2023 -continue telemetry monitoring -continue home medication Lasix -strict I&O, check PVR q.4 hours, -consult dietitian Weakness acute on chronic, recently hospitalized for ongoing complaint of weakness -initiate fall precautions -consult PT/OT eval and treat -family has requested subacute rehabilitation post discharge -patient has been accepted to subacute rehabilitation concurrently waiting on insurance authorization Sinus tachycardia, -check orthostatic vitals -check lactic acid -EKG p.r.n. as needed for chest pain complaint -cardiology consulted for, continue low-dose aspirin, continue low-dose beta-layo no indication for ischemic workup at this time -cardiology will manage patient outpatient -continue home medication Subjective Date/time seen: 11/20/23 16:05 Interval history: Chief Complaint: Patient is 83-year-old female with PMHx:? Of chronic hypoxic respiratory failure, currently on 2 L [place] home oxygen use, COPD/emphysema, presented to ED EMS with report of shortness of breath. Narrative: HPI, patient is unable to give reliable history, history is taken from spouse who is by the bedside. He reports pt has been experiencing increased shortness of breath over the last couple of days.? She has been using her inhalers and nebulizer treatments at home, but denies improvement.? reports shortness breath is worse with exertion, and she is having a hard time even walking around her house.? at bedside reports patient was significantly SOB after walking to the bathroom this morning. He checked her O2 at that time and? states her SaO2 in the 70s at that time.? Patient does also report having exertional chest pain over the last 2 days.? States pain will occur in her midsternal region with exertion, and normally resolve after approximately 5 minutes of resting.? She does report recent cough, denies fevers.? Denies known sick contacts.? Denies abdominal pain, nausea, vomiting. 11/18/2023: Patient seen today she denies any overnight complaints, she
[2023-11-20 16:23] LABS: Pneumococcal Antigen Urine Not Detected (Not Detected)
[2023-11-20 21:35] LABS: Glucose Point of Care 261 mg/dl (65-105)
[2023-11-21] VITALS (10 sets, daily range): BP systolic 133–150; BP diastolic 70–85; PULSE 72–84; RESP 18–20; TEMP 36.4; O2SAT 95–98
[2023-11-21 02:15] LABS: Legionella pneumophila Ag Ur Not Detected (Not Detected)
[2023-11-21 02:51] LABS: Adenovirus DNA Not Detected (Not Detected); Chlamydophila pneumoniae Not Detected (Not Detected); Coronavirus 229E Not Detected (Not Detected); Coronavirus HKU1 Not Detected (Not Detected); Coronavirus NL63 Not Detected (Not Detected); Coronavirus OC43 Not Detected (Not Detected); Human Metapneumovirus Not Detected (Not Detected); Human Parainfluenza Virus 1 Not Detected (Not Detected); Human Parainfluenza Virus 2 Not Detected (Not Detected); Human Parainfluenza Virus 3 Not Detected (Not Detected); Human Parainfluenza Virus 4 Not Detected (Not Detected); Human RSV B Not Detected (Not Detected); Influenza A Not Detected (Not Detected); Influenza B Not Detected (Not Detected); Mycoplasma pneumoniae Not Detected (Not Detected); Rhinovirus/Enterovirus Not Detected (Not Detected)
[2023-11-21 06:26] LABS: Alanine Aminotransferase 24 U/L (6-35); Albumin Level 3.2 g/dL (3.5-5.1); Alkaline Phosphatase 96 U/L (38-126); Anion Gap 7 mmol/L (8-16); Aspartate Amino Transferase 24 U/L (14-36); Bilirubin,Total 0.5 mg/dL (0.2-1.3); Blood Urea Nitrogen 25 mg/dL (7-17); Calcium 7.9 mg/dL (8.4-10.2); Carbon Dioxide 28 mmol/L (22-30); Chloride 101 mmol/L (98-107); Estimated CRCL calculation 43 ml/min; Estimated Glomerular Filt Rate > 60; Glucose 125 mg/dL (65-110); Potassium 3.4 mmol/L (3.4-5.0); Sodium 136 mmol/L (137-145)
[2023-11-21 06:30] LABS: Basophils Percent Auto 0.2 % (0.2-1.2); Eosinophils Percent Auto 0.2 % (0-4.4); Hematocrit 32.5 % (37.0-47.0); Hemoglobin 9.7 g/dL (12.0-15.0); Immature Granulocyte Absolute 0.19 K/mm3 (0.00-0.031); Immature Granulocyte Percent A 1.5 % (0-0.5); Lymphocytes Absolute Auto 2.91 K/mm3 (0.9-3.2); Lymphocytes Percent Auto 22.9 % (18.3-44.2); Mean Corpuscular HGB Conc 29.8 g/dl (32-36); Mean Corpuscular Hemoglobin 24.9 pg (26-34); Mean Corpuscular Volume 83.5 fl (80-100); Mean Platelet Volume 8.7 fl (7.4-10.4); Monocytes Percent Auto 7.7 % (2.6-8.5); Neutrophils Absolute Auto 8.6 K/mm3 (1.3-6.7); Neutrophils Percent Auto 67.5 % (45.5-73.1); Platelet Count Result 390 k/mm3 (150-375); Red Blood Count 3.89 M/mm3 (4.2-5.4); Red Cell Distribution Width 14.6 % (11.5-14.5); White Blood Count 12.7 K/mm3 (4.5-10.0)
[2023-11-21 06:30] LABS: Alpha-1-Antitrypsin, QN 171 mg/dL (83-199)
[2023-11-21] MEDS: FLUTICASONE/UMECLIDIN/VILANTER 100-62.5-25 MCG ELLIPTA 1 PUFF INHALATION (07:45)
[2023-11-21] MEDS: IPRATROPIUM BR 0.02% INH SOLN 0.5 MG/2.5 ML VIAL INHALATION ×2 (07:45→12:58)
--- NOTE | 2023-11-21 08:09 | PM.DS ---
DS: Admitting Diagnosis Discharge Date 11/21/2023 Admitting Diagnosis COPD acute exacerbation DS: Discharge Diagnosis Discharge Diagnosis (1) Back pain: Code(s): M54.9 - Dorsalgia, unspecified Status: Acute (2) COPD (chronic obstructive pulmonary disease): Code(s): J44.9 - Chronic obstructive pulmonary disease, unspecified Status: Acute (3) Hypertension associated with type 2 diabetes mellitus: Code(s): E11.59 - Type 2 diabetes mellitus with other circulatory complications; I15.2 - Hypertension secondary to endocrine disorders Status: Acute (4) Weakness: Code(s): R53.1 - Weakness Status: Acute (5) Falls frequently: Code(s): R29.6 - Repeated falls Status: Acute (6) COPD with acute exacerbation: Code(s): J44.1 - Chronic obstructive pulmonary disease with (acute) exacerbation Status: Acute (7) Acute on chronic respiratory failure with hypoxia: Onset Date: ~11/21/23 Code(s): J96.21 - Acute and chronic respiratory failure with hypoxia Status: Acute Plan pt seen by pulmonology while inpatient, HPI below A/P (1) COPD (chronic obstructive pulmonary disease): ?Code(s): J44.9 - Chronic obstructive pulmonary disease, unspecified ?Status:?Acute ?Assessment and Plan: The 83-year-old female patient with a history of COPD presented with shortness of breath, mild leukocytosis, mild elevation of lactic acid, and hypoxemia. She has been treated for pneumonia, COPD exacerbation and likely congestive heart failure. Her chest x-ray showed small, unclear infiltrates at the bases bilaterally and her physical exam revealed crackles at the bases. Her viral tests, including COVID, were negative. Her respiratory status has improved and a chest CT scan showed no pulmonary embolism but indicated severe emphysema and mild chronic interstitial lung disease.? Currently the patient is doing better.? She uses a walker and denies any cough or phlegm production. She is on 4.5 L nasal cannula oxygen with 100% saturation. She is ready for discharge with the following pulmonary medications: Prednisone 30 mg p.o. q.day x4 days, Levaquin 750 mg p.o. q.day x5 days, Symbicort 160-4.5 at 2 puffs b.i.d., Spiriva Respimat 2.5 mcg at 1 puff b.i.d, albuterol 2 puffs q.4 hours p.r.n. for shortness of breath or wheezing, and oxygen per formal home O2 assessment. She will continue with Oxygen at 4 L nasal cannula at night, which were her previous settings.? ?I have discontinued IV Solu-Medrol and started the patient on prednisone 30 mg p.o. q.d. started in a.m. we will sign off please? Pt was seen by cardiology here is HPI below: (1) Acute on chronic respiratory failure with hypoxia: ?Code(s): J96.21 - Acute and chronic respiratory failure with hypoxia ?Status:?Acute ?Assessment and Plan: 83-year-old female with hypertension, CHFpEF, diabetes mellitus, severe apical predominant panlobular emphysema, chronic hypoxic respiratory failure on home oxygen, dyslipidemia on PCSK9 inhibitor, history of tobacco abuse. Patient admitted to the hospital with progressively worsening shortness of breath secondary to COPD/emphysema exacerbation.? She has associated symptoms of chest tightness during episodes of shortness of breath which are likely from underlying emphysema, and possibly demand ischemia from hypoxemia.? No acute ST segment abnormality on EKG.? Serial troponins negative. -management of acute on chronic hypoxemic respiratory failure as per primary team and pulmonology. -continue low-dose aspirin.? Patient is on PCSK9 inhibitor as an outpatient.? Continue low-dose beta-layo. -no indication for ischemic workup at this time, however, patient does have coronary risk factors which include age, diabetes mellitus, hypertension, history of tobacco abuse.? Will determine need for noninvasive ischemic evaluation as an outpatient.? Outpatient follow-up information was provided to
[2023-11-21] MEDS: METOPROLOL TARTRATE 50 MG TAB PO (08:43)
[2023-11-21] MEDS: DULoxetine HCL 60 MG CAPSULE.DR PO (08:43)
[2023-11-21] MEDS: FUROSEMIDE 20 MG TABLET PO (08:43)
[2023-11-21] MEDS: predniSONE 20 MG, predniSONE 10 MG 30 MG PO (08:43)
[2023-11-21] MEDS: ASPIRIN 81 MG CHEWABLE TABLET PO (08:44)
[2023-11-21] MEDS: LORazepam (*CRX) 0.5 MG TABLET PO (08:44)
[2023-11-21] MEDS: PANTOPRAZOLE 40 MG TABLET PO (08:44)
[2023-11-21] MEDS: AZITHROMYCIN 500 MG/NS 250 ML 500 MG/250 ML BAG 250 MG IVPB (12:45)
[2023-11-21 13:30] LABS: SARS-CoV-2 RNA PCR Negative (Negative)
[2023-11-21 13:55] LABS: Mycoplasma IgM Antibody Titer 139 U/mL (<770)
== END 2023-11-21 16:04 | DRG 190 ==
LOC: ANHED 22:48 → ANH3MED 23:57
PROVIDERS: Emergency Medicine; Internal Medicine Pulmonary Disease; Admitting Provider Internal Medicine; Emergency Provider Physician Assistant; PCP Internal Medicine; Visit Provider Nurse Practitioner
DX: J43.9 Emphysema, unspecified (principal); I50.33 Acute on chronic diastolic (congestive) heart failure; J96.21 Acute and chronic respiratory failure with hypoxia; J18.9 Pneumonia, unspecified organism; N39.0 Urinary tract infection, site not specified; E11.59 Type 2 diabetes mellitus with other circulatory complications; E78.5 Hyperlipidemia, unspecified; I15.2 Hypertension secondary to endocrine disorders; I11.0 Hypertensive heart disease with heart failure; K21.9 Gastro-esophageal reflux disease without esophagitis; J43.1 Panlobular emphysema; M54.9 Dorsalgia, unspecified; R29.6 Repeated falls; Z87.891 Personal history of nicotine dependence; Z79.82 Long term (current) use of aspirin; Z79.84 Long term (current) use of oral hypoglycemic drugs; Z90.49 Acquired absence of other specified parts of digestive tract; Z90.710 Acquired absence of both cervix and uterus; Z11.52 Encounter for screening for COVID-19; Z99.81 Dependence on supplemental oxygen
CPT/HCPCS: 36415; 36600; 71045; 71275; 80053; 81001; 82103; 82104; 82805; 82948; 83605; 83880; 84439; 84443; 84480; 84484; 85025; 85380; 86738; 87040; 87086; 87088; 87449; 87633; 87635; 87636; 87637; 87899; 92610; 92611; 93005; 94640; 96365; 97110; 97161; 97165; 97530; 97535; 99285; A9270; G0378; J0456; J0696; J2920; J7512; Q9967

== ENCOUNTER 2023-11-30 01:19 | Emergency (ER) | payer MEDICARE, SELFPAY ==
--- NOTE | ~2023-11-30 | CT_ITS ---
EXAMINATION: CT cervical spine wo con DATE: 11/30/2023 04:20 INDICATION: Head injury. TECHNIQUE: Computed tomography (CT) of the cervical spine was performed without intravenous contrast. Automated exposure control and iterative reconstruction technique were employed. The dose-length pro duct was 176.27 mGy-cm. COMPARISON: CT cervical spine 10/18/2023 FINDINGS: The visualized portions of the lung apices demonstrate emphysema and apical scarring. There is 11 degrees dextroscoliosis of cervical spine. There is kyphosis of cervical spine. There is 2 mm anterolisthesis of C4 on C5. Vertebral body heights are normal. There is mildly decreased disc height at C4-C5, severely decreased disc height at C5-C6, and moderately decreased disc height at C6-C7. C1 ring is ununited posteriorly, a normal variant. The following disc levels are specifically discussed : C2-C3: There is mild left uncovertebral joint osteoarthritis. There is severe bilateral facet joint o steoarthritis. There is moderate left neural foraminal stenosis. There is no central canal stenosis. C3-C4: There is mild right and moderate left uncovertebral joint osteoarthritis. There is severe bila teral facet joint osteoarthritis. There is moderate right and mild left neural foraminal stenosis. Th ere is mild central canal stenosis. C4-C5: There is severe bilateral uncovertebral joint osteoarthritis. There is severe bilateral facet joint osteoarthritis. There is moderate left neural foraminal stenosis. There is mild central canal s tenosis. C5-C6: There is severe bilateral uncovertebral joint osteoarthritis. There is severe bilateral facet joint osteoarthritis. There is moderate right and mild left neural foraminal stenosis. There is mild central canal stenosis. C6-C7: There is severe bilateral uncovertebral joint osteoarthritis. There is severe bilateral facet joint osteoarthritis. There is moderate right and mild left neural foraminal stenosis. There is mild central canal stenosis. C7-T1: There is no uncovertebral joint osteoarthritis. There is severe bilateral facet joint osteoart hritis. There is mild bilateral neural foraminal stenosis. There is no central canal stenosis. IMPRESSION: 1. No fracture. 2. Severe cervical spondylosis. 3. Emphysema. Reviewed, dictated and finalized at location E. LER
--- NOTE | ~2023-11-30 | CT_ITS ---
EXAMINATION: CT brain wo con DATE: 11/30/2023 04:20 INDICATION: Head injury. TECHNIQUE: Computed tomography (CT) of the head was performed without intravenous contrast. The mA wa s adjusted according to patient size. Iterative reconstruction technique was employed. The dose-lengt h product was 529.67 mGy-cm. COMPARISON: Head CT 10/18/2023 FINDINGS: There are scattered areas of low attenuation in the cerebral white matter. There is no intr acranial hemorrhage, acute infarction, or abnormal intracranial mass lesion. The ventricles are tena l in size. The paranasal sinuses are clear. There is a trace right mastoid effusion. IMPRESSION: 1. Stable moderate nonspecific cerebral white matter disease, which likely represents chronic small v essel ischemic disease. Reviewed, dictated and finalized at location E. RATOR REBUILDER IMPRESSION: 1. Stable moderate nonspecific cerebral white matter disease, which likely repr esents chronic small vessel ischemic disease.
--- NOTE | ~2023-11-30 | XR_ITS ---
EXAMINATION: XR hip RT 2V w AP pelvis DATE: 11/30/2023 04:27 INDICATION: Right hip pain. Fall. TECHNIQUE: An anteroposterior view of the pelvis and 2 views of right hip were obtained. COMPARISON: None. FINDINGS: There is lumbar levoscoliosis and severe spondylosis. No fracture. There is mild osteoarthr itis of the hips. IMPRESSION: 1. Mild osteoarthritis of the hips. Reviewed, dictated and finalized at location E. VELOPMENT MANAGER
--- NOTE | ~2023-11-30 | XR_ITS ---
EXAMINATION: XR chest 1V DATE: 11/30/2023 04:27 INDICATION: Trauma. TECHNIQUE: A single frontal view of the chest was obtained. COMPARISON: Chest single view 11/18/2023, chest CT 11/17/2023 FINDINGS: There is chronic mild elevation of right hemidiaphragm. There are lucencies and chronic ret icular opacities in the lungs. No pleural effusion or pneumothorax. The heart size is normal. IMPRESSION: 1. Chronic diffuse lung disease, likely a combination of severe emphysema and chronic interstitial jordy ng disease. Reviewed, dictated and finalized at location E. FORCE PILOT IMPRESSION: 1. Chronic diffuse lung disease, likely a combination of severe emphysema and c hronic interstitial lung disease.
[2023-11-30 01:23] VITALS: BP 109/63; PULSE 81; RESP 15; TEMP 36.4; O2SAT 100
[2023-11-30 03:30] VITALS: BP 102/75; PULSE 89; RESP 14; O2SAT 100
--- NOTE | 2023-11-30 03:55 | ECG_ITS ---
Measurements Intervals [place] Rate: 96 P: 53 MA: 180 QRS: 55 QRSD: 128 T: 35 QT: 370 QTc: 470 Interpretive Statements SINUS RHYTHM RIGHT BUNDLE BRANCH BLOCK ABNORMAL ECG COMPARED TO ECG 11/17/2023 14:55:30 SINUS RHYTHM NOW PRESENT Electronically Signed On 11-30-2023 6:38:50 TENNIS PLAYER by Je Ortega D.O.
--- NOTE | 2023-11-30 03:55 | ED.FALL ---
HPI - Fall General Chief Complaint: Fall Stated Complaint: fall Time Seen by Provider: 11/30/23 02:50 Source: patient Limitations: no limitations History of Present Illness HPI Narrative: Patient is an 83-year-old female presents to the emergency department complaining of a fall. Patient states at some point last night she fell off the bed onto the ground and hit the right front side of her head. Patient admits to mild discomfort when she had her head and otherwise denies pain anywhere else. Patient admits to wearing 3 L of supplemental oxygen all times and has a history of COPD. Patient denies any recent illness, fever, chest pain, difficulty breathing, abdominal pain, nausea, vomiting, numbness, weakness, paresthesias, vision changes, melena, hematochezia, urinary discomfort, diarrhea, confusion, new or change medications. Patient is not aware last tetanus shot was. Patient admits to some small scrapes over her hands. Patient denies use of blood thinners the patient denies alcohol or illicit drug use. Patient has not attempted to get up or ambulate since the injury. Related Data Home Medications Medication Instructions Recorded Confirmed Aspirin Child 81 mg PO DAILY 07/12/23 11/23/23 Tylenol Extra Strength 500 mg PO Q6H PRN Pain (Scale 07/12/23 11/23/23 Score 1-3) albuterol sulfate 90 mcg/actuation 2 puff inhalation QID PRN sob 07/12/23 11/23/23 aerosol inhaler alirocumab 75 mg/mL subcutaneous 75 mg subcut [id number] 07/12/23 11/23/23 pen injector (Praluent Pen) budesonide-formoterol HFA 160 2 puff inhalation BID 07/12/23 11/23/23 mcg-4.5 mcg/actuation aerosol inhaler (Symbicort) duloxetine 60 mg capsule,delayed 60 mg PO BID 07/12/23 11/23/23 release lorazepam 0.5 mg tablet 0.5 mg PO Q12H 07/12/23 11/23/23 metformin 500 mg tablet 500 mg PO DAILY 07/12/23 11/23/23 metoprolol tartrate 50 mg tablet 50 mg PO Q12H 07/12/23 11/23/23 omeprazole 20 mg capsule,delayed 20 mg PO DAILY 07/12/23 11/23/23 release tiotropium bromide 2.5 1 puff inhalation BID 07/12/23 11/23/23 mcg/actuation mist for inhalation (Spiriva Respimat) Allergies Allergy/AdvReac Type Severity Reaction Status Date / Time ampicillin AdvReac Other Verified 11/30/23 01:27 Review of Systems Review of Systems: A 10 system review of systems was completed on the patient and is negative except for what is stated in the HPI. Nursing and ancillary documentation was reviewed. [facility] Past Medical History Medical History Back pain COPD (chronic obstructive pulmonary disease) Diabetes GERD (gastroesophageal reflux disease) Hemorrhoids Surgical History Surgical History History of cholecystectomy History of hysterectomy Family History Family History Father Leukemia Social History Social History Smoking packs per day: 1 Smoking cigarettes per day: 20.0 Years smoked: 20 Smoking pack-years: 20.00 Smoking status: Former smoker Tobacco type: cigarettes Alcohol intake: never Substance use: never Do You Feel Safe in your Home?: Yes Lack of Transportation: No Lack of Food: Never True Current Housing: I Have Housing Concerned About Future Housing: No Difficulty Paying Gas/Electric Bills: No Difficulty Paying for Meds: No Currently Unemployed: No Education: High School Diploma/GED Difficulty w/ Childcare or Family Care: No Spiritual care concerns: No Comments At time of signature, I have reviewed and agree with nursing past medical, surgical, social and family history unless otherwise noted. Please see the nursing chart for further information. There is no relevant family history pertinent to the presenting complaint. Exam Narrative: CONST: No acute distress. Well nourished. On 3 L of sup
[2023-11-30] MEDS: TETANUS,DIPHTHERIA,AC PERTUSSIS ADULT (0.5 ML) BOOSTRIX IM (04:56)
[2023-11-30] MEDS: SODIUM CHLORIDE 0.9% IV 500 ML 999 ML IV CONT (04:56)
[2023-11-30 04:57] LABS: Basophils Percent Auto 0.2 % (0.2-1.2); Eosinophils Absolute Auto 0.2 K/mm3 (0-0.3); Eosinophils Percent Auto 0.9 % (0-4.4); Hematocrit 37.1 % (37.0-47.0); Hemoglobin 10.9 g/dL (12.0-15.0); Immature Granulocyte Absolute 0.17 K/mm3 (0.00-0.031); Lymphocytes Absolute Auto 3.72 K/mm3 (0.9-3.2); Lymphocytes Percent Auto 21.7 % (18.3-44.2); Mean Corpuscular HGB Conc 29.4 g/dl (32-36); Mean Corpuscular Hemoglobin 25.2 pg (26-34); Mean Corpuscular Volume 85.9 fl (80-100); Monocytes Absolute Auto 1.6 K/mm3 (0.1-0.6); Monocytes Percent Auto 9.3 % (2.6-8.5); Neutrophils Absolute Auto 11.5 K/mm3 (1.3-6.7); Neutrophils Percent Auto 66.9 % (45.5-73.1); Platelet Count Result 296 k/mm3 (150-375); Red Blood Count 4.32 M/mm3 (4.2-5.4); Red Cell Distribution Width 15.8 % (11.5-14.5); White Blood Count 17.1 K/mm3 (4.5-10.0)
[2023-11-30] MEDS: ACETAMINOPHEN 500 MG TABLET 1000 MG PO (04:57)
[2023-11-30 05:05] LABS: Platelet Estimate Adequate (Adequate)
[2023-11-30 05:06] LABS: Anisocytosis 1+ (NORMAL); Hypochromasia 1+ (NORMAL); Schistocytes None Seen (NORMAL)
[2023-11-30 05:07] LABS: Anion Gap 4 mmol/L (8-16); Blood Urea Nitrogen 20 mg/dL (7-17); Calcium 8.8 mg/dL (8.4-10.2); Carbon Dioxide 36 mmol/L (22-30); Chloride 100 mmol/L (98-107); Estimated CRCL calculation 29 ml/min; Estimated Glomerular Filt Rate 53; Glucose 136 mg/dL (65-110); Magnesium 2.1 mg/dL (1.6-2.3); Potassium 3.4 mmol/L (3.4-5.0); Sodium 140 mmol/L (137-145)
[2023-11-30 05:09] LABS: Lactic Acid Reflex 1.4 mmol/L (0.7-2.0)
[2023-11-30 05:18] LABS: INR 0.9; Prothrombin Time 12.9 Seconds (11.1-14.7)
[2023-11-30 05:19] LABS: Partial Thromboplastin Time 30.2 SECONDS (22.3-36.8)
[2023-11-30 07:00] VITALS: BP 127/71; PULSE 94; RESP 16; TEMP 36.6; O2SAT 100
[2023-11-30 08:00] VITALS: BP 137/83; PULSE 94; RESP 18; TEMP 36.7; O2SAT 98
[2023-11-30 08:11] LABS: Appearance Urine Clear (Clear); Bacteria Urine None Seen /hpf; Bilirubin Urine Negative (Negative); Blood Urine Negative (Negative); Color Urine Yellow (Yellow); Glucose Urine UA Negative (Negative); Hyaline Casts Urine Present /lpf; Ketones Urine Negative (Negative); Leukocyte Esterase Ur Negative LEU/UL (Negative); Need Manual Microscopic Reviewed; Nitrate Urine Negative (Negative); Protein Urine Trace mg/dL (Negative); RBC Urine 0-2 /hpf (0-2); Specific Grav Ur 1.023 (1.001-1.035); Squamous Epithelial Cell Urine None seen /hpf (Few); Urobilinogen Urine 0.2 mg/dL (<2.0); WBC Urine 0-5 /hpf; pH Urine 5.5 (5.0-9.0)
[2023-11-30 08:26] LABS: Add Urine Microscopic? YES
[2023-11-30 09:00] VITALS: BP 138/98; PULSE 90; RESP 16; TEMP 36.6; O2SAT 100
== END 2023-11-30 10:30 | disposition home or self-care (01) ==
PROVIDERS: Emergency Provider Student in an Organized Health Care Education/Training Program; PCP Internal Medicine
DX: S09.90XA Unspecified injury of head, initial encounter (principal); S61.412A Laceration without foreign body of left hand, initial encounter; S61.411A Laceration without foreign body of right hand, initial encounter; Z23 Encounter for immunization; J43.9 Emphysema, unspecified; E11.9 Type 2 diabetes mellitus without complications; K21.9 Gastro-esophageal reflux disease without esophagitis; Z99.81 Dependence on supplemental oxygen; Z87.891 Personal history of nicotine dependence; Z79.84 Long term (current) use of oral hypoglycemic drugs; Z79.82 Long term (current) use of aspirin; Z90.49 Acquired absence of other specified parts of digestive tract; Z90.710 Acquired absence of both cervix and uterus; M47.812 Spondylosis without myelopathy or radiculopathy, cervical region; M16.0 Bilateral primary osteoarthritis of hip; I45.10 Unspecified right bundle-branch block; R90.82 White matter disease, unspecified; W06.XXXA Fall from bed, initial encounter
CPT/HCPCS: 36415; 70450; 71045; 72125; 73502; 80048; 81001; 83605; 83735; 85025; 85610; 85730; 86850; 86900; 86901; 90471; 90715; 93005; 96360; 96361; 99284; A9270; J7040

== ENCOUNTER 2023-12-02 23:46 | Observation (INO) | payer MEDICARE, SELFPAY ==
--- NOTE | ~2023-12-02 | XR_ITS ---
XR elbow RT min 3V DATE: 12/03/2023 02:09 INDICATION: Fall. Right elbow injury. Skin tears. TECHNIQUE: 3 views COMPARISON: None FINDINGS: There is spurring of the coronoid process of the proximal ulna. No fracture or dislocation or joint effusion. No periosteal reaction or bone destruction. IMPRESSION: No fracture or dislocation Reviewed, dictated and finalized at location A. GOODS TESTER IMPRESSION: No fracture or dislocation
--- NOTE | ~2023-12-02 | XR_ITS ---
XR chest 1V portable DATE: 12/03/2023 02:10 INDICATION: Fall. TECHNIQUE: Portable AP chest on 12/03/2023 at 0154 hours COMPARISON: 11/30/2023 AP chest FINDINGS: Normal heart size. Aortic arch calcification. No hilar or mediastinal enlargement. No pulmonary infiltrate or consolidation, pleural effusion or pulmonary vascular congestion or pneumo thorax. Diffuse osteopenia. Probable bilateral chronic rotator cuff atrophy. IMPRESSION: No active cardiopulmonary disease Aortic atherosclerosis Reviewed, dictated and finalized at location A. RATORY MILLER
--- NOTE | ~2023-12-02 | CT_ITS ---
EXAMINATION: CT cervical spine wo con DATE: 12/03/2023 01:57 INDICATION: Fall. TECHNIQUE: Computed tomography (CT) of the cervical spine was performed without intravenous contrast. Automated exposure control and iterative reconstruction technique were employed. Exam dose: 166.60 mGy-cm total exam DLP. COMPARISON: 11/30/2023 CT cervical spine FINDINGS: There is reversal cervical curvature which may be due to muscle spasm and/or positioning. There is approximately 2.7 mm anterolisthesis at C4-5, likely due to severe degenerative changes apop hyseal joints, which is noted throughout much of the cervical spine. Severe degenerative disc disease at C5-6 and C6-7 with particularly prominent anterior as well as pro minent posterior spurring. Particular prominent uncovertebral joint spurring is noted at C4-5 and particularly at C5-6 and C6-7. C1 and C2 are normally aligned and the odontoid process is intact. No fracture or dislocation or lock ed facet or prevertebral soft tissue swelling is noted.. IMPRESSION: 2.7 mm anterolisthesis at C4-5 Severe degenerative disease at C5-6 and C6-7 and prominent degenerative change at the apophyseal join ts and mid and lower uncovertebral joints No fracture, dislocation or locked facet Reviewed, dictated and finalized at Location A. Reviewed, dictated and finalized at location A. E OPERATOR IMPRESSION: 2.7 mm anterolisthesis at C4-5 Severe degenerative disease at C5-6 and C6-7 and prominent degenerative change at the apophyseal joints and mid and lower uncovertebral joints No fracture, dislocation or locked facet
--- NOTE | ~2023-12-02 | CT_ITS ---
EXAMINATION: CT brain wo con DATE: 12/03/2023 01:57 INDICATION: Fall. TECHNIQUE: Computed tomography (CT) of the head was performed without intravenous contrast. The mA wa s adjusted according to patient size. Iterative reconstruction technique was employed. Exam dose: 60 5.33 mGy-cm total exam DLP. COMPARISON: 11/30/2023 CT brain FINDINGS: Prominent bilateral carotid siphon internal carotid artery calcifications. There is nonspec ific diminished attenuation cerebral white matter, likely due to chronic small vessel ischemic change s. No intracranial mass lesion or hemorrhage, midline shift or mass effect or cerebrovascular accident i s detected. No subdural or epidural hematoma. The mastoid air cells and paranasal sinuses are normally developed and aerated. No fracture or bone destruction of the cranial vault. IMPRESSION: No skull fracture or acute intracranial finding or significant change since 11/30 2023 Reviewed, dictated and finalized at Location A. Reviewed, dictated and finalized at location A. ION SUPERINTENDENT IMPRESSION: No skull fracture or acute intracranial finding or significant michael nge since 11/30 2023
--- NOTE | ~2023-12-02 | XR_ITS ---
XR hip RT 2V w AP pelvis DATE: 12/03/2023 02:10 INDICATION: Right hip pain following fall TECHNIQUE: AP pelvis. AP and lateral views of right hip COMPARISON: None FINDINGS: There is a mildly impacted mildly anteriorly displaced right subcapital femoral neck fractu re. Mild right hip osteoarthritis. Diffuse osteopenia. The pubic symphysis and sacroiliac joints are intact. No pelvic fracture or bone destruction is detec nata. Rotatory levoscoliosis and multilevel degenerative disc disease of the lumbar spine. IMPRESSION: Right subcapital femoral neck fracture Reviewed, dictated and finalized at location A. STER CAPPER
[2023-12-02 23:49] VITALS: BP 102/60; PULSE 89; RESP 20; TEMP 36.6; O2SAT 93
[2023-12-03] VITALS (29 sets, daily range): BP systolic 104–159; BP diastolic 48–96; PULSE 68–121; RESP 16–38; TEMP 36.4–36.5; O2SAT 86–100; BMI 23.2
--- NOTE | 2023-12-03 01:34 | ED.FALL ---
HPI - Fall General Chief Complaint: Fall Stated Complaint: GLF, R elbow and hip pain Time Seen by Provider: 12/03/23 01:20 Source: patient Mode of arrival: EMS Limitations: other (poor historian) History of Present Illness HPI Narrative: This is a 83 year old female that presents to the ER after a ground level fall tonight. Reports falling onto her right side. Reports right elbow skin tears as well as right hip injury. She does not think that she hit her head. She does endorse a headache and neck pain. She did not lose consciousness. Related Data Home Medications Medication Instructions Recorded Confirmed Aspirin Child 81 mg PO DAILY 07/12/23 12/03/23 albuterol sulfate 90 mcg/actuation 2 puff inhalation TID PRN sob 07/12/23 12/03/23 aerosol inhaler alirocumab 75 mg/mL subcutaneous 75 mg subcut [id number] 07/12/23 12/03/23 pen injector (Praluent Pen) budesonide-formoterol HFA 160 2 puff inhalation BID 07/12/23 12/03/23 mcg-4.5 mcg/actuation aerosol inhaler (Symbicort) duloxetine 60 mg capsule,delayed 60 mg PO BID 07/12/23 12/03/23 release lorazepam 0.5 mg tablet 0.5 mg PO Q12H 07/12/23 12/03/23 metformin 500 mg tablet 500 mg PO DAILY 07/12/23 12/03/23 metoprolol tartrate 50 mg tablet 50 mg PO Q12H 07/12/23 12/03/23 omeprazole 20 mg capsule,delayed 20 mg PO DAILY 07/12/23 12/03/23 release tiotropium bromide 2.5 1 puff inhalation BID 07/12/23 12/03/23 mcg/actuation mist for inhalation (Spiriva Respimat) Allergies Allergy/AdvReac Type Severity Reaction Status Date / Time ampicillin Allergy Other Verified 12/03/23 09:58 Review of Systems Review of Systems: CONSTITUTIONAL: Denies fever EYES: Denies visual changes CARDIOVASCULAR: Denies chest pain RESPIRATORY: Reports dyspnea. GASTROINTESTINAL: Denies vomiting MUSCULOSKELETAL: Reports joint pain, and myalgia. NEUROLOGIC: Reports headache All systems reviewed & are unremarkable except as noted in HPI and below PMFSH Past Medical History Medical History Back pain COPD (chronic obstructive pulmonary disease) Diabetes GERD (gastroesophageal reflux disease) Hemorrhoids Surgical History Surgical History History of cholecystectomy History of hysterectomy Family History Family History Father Leukemia Social History Social History Smoking packs per day: 1 Smoking cigarettes per day: 20.0 Years smoked: 20 Smoking pack-years: 20.00 Smoking status: Former smoker Tobacco type: cigarettes Alcohol intake: former Substance use: never Do You Feel Safe in your Home?: Yes Lack of Transportation: No Lack of Food: Never True Current Housing: I Have Housing Concerned About Future Housing: No Difficulty Paying Gas/Electric Bills: No Difficulty Paying for Meds: No Currently Unemployed: No Education: High School Diploma/GED Difficulty w/ Childcare or Family Care: No Spiritual care concerns: No Exam Narrative: GENERAL: Elderly, well-nourished, and in no acute distress. HEAD: Normocephalic, atraumatic. EYES: PERRLA and EOMI. ENT: Nares clear, no rhinorrhea or epistaxis. Mucous membranes moist. Oropharynx without tonsillar hypertrophy exudate or other lesions. Bilateral TMs pearly velásquez non-bulging NECK: Supple. No adenopathy or masses. CHEST: No respiratory distress. Expiratory wheezing. No rales or rhonchi HEART: Regular rate and rhythm. No murmur heard. Normal peripheral pulses. ABDOMEN: Soft, nontender, nondistended, normal active bowel sounds. BACK: No midline spinal tenderness EXTREMITIES: Normal range of motion, except decreased active ROM in the right hip which is held in flexed position. No edema. Normal DP pulses SKIN: Warm, dry, no rash. NEURO: No focal deficits. Alert and oriented
[2023-12-03] MEDS: IPRATROPIUM 0.5 MG/ALBUTEROL SULFATE 2.5 MG AMPUL.NEB 3 ML INHALATION (02:11)
[2023-12-03 02:20] LABS: Basophils Percent Auto 0.2 % (0.2-1.2); Eosinophils Absolute Auto 0.1 K/mm3 (0-0.3); Eosinophils Percent Auto 0.9 % (0-4.4); Hematocrit 35.9 % (37.0-47.0); Hemoglobin 10.6 g/dL (12.0-15.0); Immature Granulocyte Absolute 0.17 K/mm3 (0.00-0.031); Immature Granulocyte Percent A 1.2 % (0-0.5); Lymphocytes Absolute Auto 2.37 K/mm3 (0.9-3.2); Lymphocytes Percent Auto 17.1 % (18.3-44.2); Mean Corpuscular HGB Conc 29.5 g/dl (32-36); Mean Corpuscular Hemoglobin 25.3 pg (26-34); Mean Corpuscular Volume 85.7 fl (80-100); Mean Platelet Volume 8.6 fl (7.4-10.4); Monocytes Absolute Auto 0.9 K/mm3 (0.1-0.6); Monocytes Percent Auto 6.5 % (2.6-8.5); Neutrophils Absolute Auto 10.3 K/mm3 (1.3-6.7); Neutrophils Percent Auto 74.1 % (45.5-73.1); Platelet Count Result 235 k/mm3 (150-375); Red Blood Count 4.19 M/mm3 (4.2-5.4); Red Cell Distribution Width 16.2 % (11.5-14.5); White Blood Count 13.9 K/mm3 (4.5-10.0)
[2023-12-03 02:33] LABS: Alanine Aminotransferase 23 U/L (6-35); Albumin Level 3.8 g/dL (3.5-5.1); Alkaline Phosphatase 118 U/L (38-126); Anion Gap 5 mmol/L (8-16); Aspartate Amino Transferase 25 U/L (14-36); Bilirubin,Total 0.7 mg/dL (0.2-1.3); Blood Urea Nitrogen 16 mg/dL (7-17); Calcium 8.6 mg/dL (8.4-10.2); Carbon Dioxide 33 mmol/L (22-30); Chloride 101 mmol/L (98-107); Estimated Glomerular Filt Rate > 60; Glucose 140 mg/dL (65-110); Potassium 4.3 mmol/L (3.4-5.0); Sodium 139 mmol/L (137-145)
[2023-12-03] MEDS: ONDANSETRON INJ 4 MG/2 ML VIAL IV PUSH (02:35)
[2023-12-03] MEDS: MORPHINE SULFATE (*CRX) 4 MG/ML INJ IV PUSH ×2 (02:36→09:38)
[2023-12-03 02:44] LABS: Anisocytosis 1+ (NORMAL); Hypochromasia 1+ (NORMAL); Microcytosis 1+ (NORMAL); Ovalocytes 1+ (NORMAL); Platelet Estimate Adequate (Adequate); Poikilocytosis 1+ (NORMAL); Schistocytes None Seen (NORMAL)
[2023-12-03] MEDS: methylPREDNISolone SOD SUCC 125 MG VIAL IV PUSH (04:00)
--- NOTE | 2023-12-03 04:02 | ECG_ITS ---
Measurements Intervals [place] Rate: 113 P: 69 IA: 170 QRS: 64 QRSD: 130 T: 27 QT: 353 QTc: 485 Interpretive Statements SINUS TACHYCARDIA RIGHT BUNDLE BRANCH BLOCK BASELINE ARTIFACT- I, II, III, AVR, AVL, AVF, V1-V6 ABNORMAL ECG COMPARED TO ECG 11/30/2023 05:44:16 SINUS TACHYCARDIA NOW PRESENT Electronically Signed On 12-03-2023 8:11:21 CARPENTER/LABOR by Je Ortega D.O.
[2023-12-03 05:27] LABS: Influenza A QL RT-PCR Negative (Negative); Influenza B QL RT-PCR Negative (Negative); RSV RNA, RT-PCR Negative (Negative); SARS-CoV-2 RNA PCR Negative (Negative)
[2023-12-03 05:32] LABS: Appearance Urine Clear (Clear); Bacteria Urine None Seen /hpf; Bilirubin Urine Negative (Negative); Blood Urine Negative (Negative); Budding Yeast Urine Present /hpf; Color Urine Yellow (Yellow); Glucose Urine UA Negative (Negative); Ketones Urine Trace mg/dL (Negative); Leukocyte Esterase Ur Trace LEU/UL (Negative); Mucus Urine Present /lpf; Need Manual Microscopic Reviewed; Nitrate Urine Negative (Negative); Non Pathogenic Casts 0-2; Protein Urine Negative (Negative); Specific Grav Ur 1.023 (1.001-1.035); Squamous Epithelial Cell Urine None seen /hpf (Few); Urobilinogen Urine 0.2 mg/dL (<2.0); pH Urine 6.5 (5.0-9.0)
[2023-12-03 05:33] LABS: Add Urine Microscopic? YES
[2023-12-03 08:40] LABS: Glucose Point of Care 215 mg/dl (65-105)
--- NOTE | 2023-12-03 10:21 | PM.CNOR ---
Assessment and Plan Assessment and plan (1) Closed fracture of neck of right femur: Qualifiers: Encounter type: initial encounter Qualified Code(s): S72.001A - Fracture of unspecified part of neck of right femur, initial encounter for closed fracture Code(s): S72.001A - Fracture of unspecified part of neck of right femur, initial encounter for closed fracture Status: Acute Assessment and Plan: Patient has a femoral neck fracture right. It is displaced enough that I do not think it will heal with pinning. I think she will need a bipolar endoprosthetic replacement. She is already on 3 liters of oxygen. She has significant dementia, and walks very little. I think that the risks in this case may outweigh any benefit she could obtain with surgery. Will discuss with the family in detail risks benefits limitations and alternatives. If she does not have surgery, she will essentially be bed to chair which is not a great outcome either. History of Present Illness HPI Consult date: 12/03/23 Consult reason: fracture Chief complaint: Right Femoral Neck Fracture, COPD Exacerbation Narrative: Patient is a retirement patient with dementia. She had a fall yesterday and suffered a femoral neck fracture right. Review of Systems Musculoskeletal: Musculoskeletal: Reports arthralgias and Reports joint swelling PMFSH Past Medical History Medical History Back pain COPD (chronic obstructive pulmonary disease) Diabetes GERD (gastroesophageal reflux disease) Hemorrhoids Surgical History Surgical History History of cholecystectomy History of hysterectomy Family History Family History Father Leukemia Social History Social History Smoking packs per day: 1 Smoking cigarettes per day: 20.0 Years smoked: 20 Smoking pack-years: 20.00 Smoking status: Former smoker Tobacco type: cigarettes Alcohol intake: former Substance use: never Do You Feel Safe in your Home?: Yes Lack of Transportation: No Lack of Food: Never True Current Housing: I Have Housing Concerned About Future Housing: No Difficulty Paying Gas/Electric Bills: No Difficulty Paying for Meds: No Currently Unemployed: No Education: High School Diploma/GED Difficulty w/ Childcare or Family Care: No Spiritual care concerns: No Meds Home Medications and Allergies Home Medications Medication Instructions Recorded Confirmed Type Aspirin Child 81 mg PO DAILY 07/12/23 12/03/23 History albuterol sulfate 90 mcg/actuation 2 puff inhalation QID PRN sob 07/12/23 12/03/23 History aerosol inhaler alirocumab 75 mg/mL subcutaneous 75 mg subcut [id number] 07/12/23 12/03/23 History pen injector (Praluent Pen) budesonide-formoterol HFA 160 2 puff inhalation BID 07/12/23 12/03/23 History mcg-4.5 mcg/actuation aerosol inhaler (Symbicort) duloxetine 60 mg capsule,delayed 60 mg PO BID 07/12/23 12/03/23 History release lorazepam 0.5 mg tablet 0.5 mg PO Q12H 07/12/23 12/03/23 History metformin 500 mg tablet 500 mg PO DAILY 07/12/23 12/03/23 History metoprolol tartrate 50 mg tablet 50 mg PO Q12H 07/12/23 12/03/23 History omeprazole 20 mg capsule,delayed 20 mg PO DAILY 07/12/23 12/03/23 History release tiotropium bromide 2.5 1 puff inhalation BID 07/12/23 12/03/23 History mcg/actuation mist for inhalation (Spiriva Respimat) levofloxacin 750 mg tablet 750 mg PO DAILY 5 days #5 tabs 11/21/23 11/23/23 Rx acetaminophen 500 mg tablet 500 mg PO Q6H PRN pain #30 tabs 11/30/23 12/03/23 Rx Allergies Allergy/AdvReac Type Severity Reaction Status Date / Time ampicillin Allergy Other Verified 12/03/23 09:58 Vital Signs Vital Signs - 24 hr 12/02/23 23:49 12/03/23 01:18 12/03/23 01:19 Temperature
[2023-12-03 12:15] LABS: Glucose Point of Care 196 mg/dl (65-105)
--- NOTE | 2023-12-03 12:35 | PM.IMHP ---
H&P: HPI History of Present Illness Date/Time: 12/03/23 12:35 Chief Complaint: fall Narrative: Patient is an 83 YO female admitted from [facility] with PMH of chronic hypoxic respiratory failure on home oxygen of 3L, COPD/emphysema, diabetes, GERD for a fall onto her right side. Patient has been in and out of the hospital for falls and lightheadedness in the past months. She was previously discharged to the sn[facility] after her most recent admission on 11/21/23. In the ER, she denied LOC, but reported a CARREON and neck pain. She has elbow skin tears and unable to adduct right hip inward without pain. Patient is at the bedside this morning and provides additional information of her being less with it since going to the snf. He does not know if this is due to pain medication she may have been taking there. Patient is alert and oriented to herself this morning and responsive to my questions. Her breathing is crackly, but she is on 3 L of oxygen and not in acute distress. XR of her hip shows right femoral neck fracture. All other imaging has been reviewed. Pain control will be continued. Dr. Wellington with Orthopedics has been consulted. Given age and condition, he will discuss with family surgery vs. medical management. Will await his recommendations. Review of Systems Review of Systems: All systems reviewed & are unremarkable except as noted in HPI and below PMFSH Past Medical History Medical History Back pain COPD (chronic obstructive pulmonary disease) Diabetes GERD (gastroesophageal reflux disease) Hemorrhoids Surgical History Surgical History History of cholecystectomy History of hysterectomy Family History Family History Father Leukemia Social History Social History Smoking packs per day: 1 Smoking cigarettes per day: 20.0 Years smoked: 20 Smoking pack-years: 20.00 Smoking status: Former smoker Tobacco type: cigarettes Alcohol intake: former Substance use: never Do You Feel Safe in your Home?: Yes Lack of Transportation: No Lack of Food: Never True Current Housing: I Have Housing Concerned About Future Housing: No Difficulty Paying Gas/Electric Bills: No Difficulty Paying for Meds: No Currently Unemployed: No Education: High School Diploma/GED Difficulty w/ Childcare or Family Care: No Spiritual care concerns: No Meds Home Medications and Allergies Home Medications Medication Instructions Recorded Confirmed Type Aspirin Child 81 mg PO DAILY 07/12/23 12/03/23 History albuterol sulfate 90 mcg/actuation 2 puff inhalation TID PRN sob 07/12/23 12/03/23 History aerosol inhaler alirocumab 75 mg/mL subcutaneous 75 mg subcut [id number] 07/12/23 12/03/23 History pen injector (Praluent Pen) budesonide-formoterol HFA 160 2 puff inhalation BID 07/12/23 12/03/23 History mcg-4.5 mcg/actuation aerosol inhaler (Symbicort) duloxetine 60 mg capsule,delayed 60 mg PO BID 07/12/23 12/03/23 History release lorazepam 0.5 mg tablet 0.5 mg PO Q12H 07/12/23 12/03/23 History metformin 500 mg tablet 500 mg PO DAILY 07/12/23 12/03/23 History metoprolol tartrate 50 mg tablet 50 mg PO Q12H 07/12/23 12/03/23 History omeprazole 20 mg capsule,delayed 20 mg PO DAILY 07/12/23 12/03/23 History release tiotropium bromide 2.5 1 puff inhalation BID 07/12/23 12/03/23 History mcg/actuation mist for inhalation (Spiriva Respimat) levofloxacin 750 mg tablet 750 mg PO DAILY 5 days #5 tabs 11/21/23 12/03/23 Rx acetaminophen 500 mg tablet 500 mg PO Q6H PRN pain #30 tabs 11/30/23 12/03/23 Rx Allergies Allergy/AdvReac Type Severity Reaction Status Date / Time ampicillin Allergy Other Verified 12/03/23 09:58 Vital Signs Vital Signs - 24 hr
[2023-12-03] MEDS: SODIUM CHLORIDE 0.9% IV 1,000 ML 50 ML IV CONT (13:55)
[2023-12-03] MEDS: METOPROLOL TARTRATE 50 MG TAB PO ×2 (13:55→20:34)
[2023-12-03 14:08] LABS: Alveolar/Arterial O2 Gradient 96.2 mmHg; Base Excess ABG 3.2 mEq/l (+/-2.0); Fractional Inspired Oxygen 32 %; HCO3 ABG 27.5 mEq/l (22.0-26.0); Oxygen Saturation ABG 96.7 % (95.0-100.0); Oxyhemoglobin 95.2 % THb (90.0-100.0); PCO2 ABG 40.9 mmHg (35.0-45.0); PO2 ABG 84.1 mmHg (80.0-100.0); PO2 FiO2 Ratio Arterial Blood 2.63 %; Total Hemoglobin 11.9 g/dL (12.0-18.0); pH ABG 7.446 (7.350-7.450)
[2023-12-03 14:09] LABS: Device NASAL CANNULA; Modified Allen's Test Pass; Site Drawn LEFT RADIAL
[2023-12-03 17:15] LABS: Glucose Point of Care 258 mg/dl (65-105)
[2023-12-03] MEDS: FLUTICASONE/SALMETEROL 115-21 MCG INHALER 1 PUFF 2 PUFF INHALATION (19:33)
[2023-12-03] MEDS: INSULIN ASPART (*BKC) 100 UNITS/ML SUB-Q (20:32)
[2023-12-03] MEDS: LORazepam (*CRX) 0.5 MG TABLET PO (20:34)
[2023-12-03] MEDS: DULoxetine HCL 60 MG CAPSULE.DR PO (20:34)
[2023-12-03 21:01] LABS: Glucose Point of Care 203 mg/dl (65-105)
[2023-12-04] VITALS (16 sets, daily range): BP systolic 125–171; BP diastolic 60–100; PULSE 87–121; RESP 16–24; TEMP 36.4–36.7; O2SAT 95–100; BMI 23.2
[2023-12-04 05:01] LABS: Hematocrit 37.1 % (37.0-47.0); Hemoglobin 10.8 g/dL (12.0-15.0); Mean Corpuscular HGB Conc 29.1 g/dl (32-36); Mean Corpuscular Hemoglobin 25.4 pg (26-34); Mean Corpuscular Volume 87.1 fl (80-100); Platelet Count Result 226 k/mm3 (150-375); Red Blood Count 4.26 M/mm3 (4.2-5.4); Red Cell Distribution Width 17.1 % (11.5-14.5); White Blood Count 18.3 K/mm3 (4.5-10.0)
[2023-12-04 05:17] LABS: Anion Gap 7 mmol/L (8-16); Blood Urea Nitrogen 17 mg/dL (7-17); Calcium 8.7 mg/dL (8.4-10.2); Carbon Dioxide 30 mmol/L (22-30); Chloride 106 mmol/L (98-107); Estimated CRCL calculation 41 ml/min; Estimated Glomerular Filt Rate > 60; Glucose 149 mg/dL (65-110); Potassium 4.7 mmol/L (3.4-5.0); Sodium 143 mmol/L (137-145)
[2023-12-04] MEDS: MORPHINE SULFATE (*CRX) 2 MG/ML INJ IV PUSH ×2 (05:46→19:07)
[2023-12-04] MEDS: FLUTICASONE/SALMETEROL 115-21 MCG INHALER 1 PUFF 2 PUFF INHALATION ×2 (08:23→20:55)
[2023-12-04] MEDS: UMECLIDINIUM BROMIDE 62.5 MCG ELLIPTA 1 PUFF INHALATION (08:27)
[2023-12-04 08:30] LABS: Glucose Point of Care 138 mg/dl (65-105)
[2023-12-04] MEDS: METOPROLOL TARTRATE 50 MG TAB PO ×2 (09:02→20:33)
[2023-12-04] MEDS: DULoxetine HCL 60 MG CAPSULE.DR PO ×2 (09:02→17:17)
[2023-12-04] MEDS: LORazepam (*CRX) 0.5 MG TABLET PO ×2 (09:02→20:33)
[2023-12-04] MEDS: PANTOPRAZOLE 40 MG TABLET PO (09:02)
[2023-12-04] MEDS: SODIUM CHLORIDE 0.9% IV 1,000 ML 50 ML IV CONT (09:03)
[2023-12-04 11:49] LABS: Glucose Point of Care 155 mg/dl (65-105)
--- NOTE | 2023-12-04 12:36 | PCPTNOTE ---
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
--- NOTE | 2023-12-04 14:40 | PM.IMPN ---
Progress Note: A&P Assessment and Plan (1) Closed fracture of neck of right femur: Qualifiers: Encounter type: initial encounter Qualified Code(s): S72.001A - Fracture of unspecified part of neck of right femur, initial encounter for closed fracture Code(s): S72.001A - Fracture of unspecified part of neck of right femur, initial encounter for closed fracture Status: Acute Assessment and Plan: XR hip showed right subcapital femoral neck fracture orthopedics consulted - medical management pain control - pref Tylenol PT/OT ordered for d/c planning as she will need long-term placement (2) Hypertension associated with type 2 diabetes mellitus: Code(s): E11.59 - Type 2 diabetes mellitus with other circulatory complications; I15.2 - Hypertension secondary to endocrine disorders Status: Chronic Assessment and Plan: continue home metoprolol (3) Falls frequently: Code(s): R29.6 - Repeated falls Status: Chronic Assessment and Plan: CT brain negative for acute process or injury [place] resident at [facility] - following as she will need hospice and/or long-term care based on family preference PT/OT ordered for d/c planning (4) COPD (chronic obstructive pulmonary disease): Code(s): J44.9 - Chronic obstructive pulmonary disease, unspecified Status: Chronic Assessment and Plan: continue home inhalers CXR showed no infiltrate, pleural effusion or pulmonary congestion (5) Diabetes: Code(s): E11.9 - Type 2 diabetes mellitus without complications Status: Chronic Assessment and Plan: resume metformin sliding scale low dose insulin, AccuCheck and hypoglycemic protocol Subjective Date/time seen: 12/04/23 14:40 Interval history: Patient is alert and oriented this morning and responsive to my questions. She denies pain, and has been eating her breakfast. Her breathing is crackly, but she is on 3 L of oxygen and not in acute distress. XR of her hip shows right femoral neck fracture. Orthopedics consulted and family agrees with recommendation against surgery due to her co-morbidities. Family now looking into long-term placement and possibly hospice as she likely will not be mobile again. PT/OT ordered for d/c planning purposes. Review of Systems Review of Systems: All systems reviewed & are unremarkable except as noted in HPI and below Exam Narrative: GENERAL: Elderly, well-nourished, and in no acute distress. HEAD: Normocephalic, atraumatic. EYES: PERRLA and EOMI. NECK: Supple. CHEST: No respiratory distress. Expiratory wheezing. No rales or rhonchi HEART: RRR. No murmur heard. Normal peripheral pulses. ABDOMEN: Soft, nontender, nondistended, active BS present EXTREMITIES: decreased active ROM in the right hip which is held in flexed position. No edema. Normal DP pulses SKIN: Warm, dry, no rash. Multiple bloody wounds noted on right arm. NEURO: No focal deficits. Alert and oriented x1. PSYCH: Normal mood and affect Objective Data Vital Signs Vital Signs: Vital Signs - 24 hr 12/03/23 16:03 12/03/23 19:34 12/03/23 19:36 Temperature Pulse Rate 82 91 Respiratory Rate 20 Blood Pressure Pulse Oximetry 97 Oxygen Delivery Nasal Cannula Oxygen Flow Rate 3 12/03/23 20:34 12/03/23 20:33 12/03/23 20:00 Temperature 97.7 F Pulse Rate 109 H 109 H 95 Respiratory Rate 18 Blood Pressure 159/96 H Pulse Oximetry 99 Oxygen Delivery Oxygen Flow Rate 12/03/23 20:00 12/04/23 00:00 12/04/23 04:00 Temperature Pulse Rate 102 H 109 H Respiratory Rate Blood Pressure Pulse Oximetry 99 Oxygen Delivery Nasal Cannula Oxygen Flow Rate 3 12/04/23 05:40 12/04/23 06:11 12/04/23 08:23 Temperature 98.0 F Pulse Rate 111 H 111 H 116 H Respiratory Rate 16 20 Blood Pressure 171/100 H 159/95 H Pulse Oximetry 98 100 Oxygen Delivery Oxygen Flow Rate
[2023-12-04 16:11] LABS: Glucose Point of Care 212 mg/dl (65-105)
[2023-12-04] MEDS: ACETAMINOPHEN 325 MG TABLET 650 MG PO (17:17)
[2023-12-04] MEDS: INSULIN ASPART (*BKC) 100 UNITS/ML SUB-Q (17:18)
[2023-12-04 21:37] LABS: Glucose Point of Care 190 mg/dl (65-105)
[2023-12-05] VITALS (17 sets, daily range): BP systolic 110–148; BP diastolic 56–95; PULSE 83–131; RESP 16–26; TEMP 36.2–36.9; O2SAT 93–100
[2023-12-05 05:37] LABS: Basophils Percent Auto 0.2 % (0.2-1.2); Eosinophils Absolute Auto 0.3 K/mm3 (0-0.3); Eosinophils Percent Auto 2.4 % (0-4.4); Hematocrit 30.1 % (37.0-47.0); Hemoglobin 8.7 g/dL (12.0-15.0); Immature Granulocyte Absolute 0.07 K/mm3 (0.00-0.031); Immature Granulocyte Percent A 0.6 % (0-0.5); Lymphocytes Absolute Auto 2.04 K/mm3 (0.9-3.2); Lymphocytes Percent Auto 16.6 % (18.3-44.2); Mean Corpuscular HGB Conc 28.9 g/dl (32-36); Mean Corpuscular Hemoglobin 25.3 pg (26-34); Mean Corpuscular Volume 87.5 fl (80-100); Mean Platelet Volume 9.3 fl (7.4-10.4); Monocytes Absolute Auto 0.8 K/mm3 (0.1-0.6); Monocytes Percent Auto 6.3 % (2.6-8.5); Neutrophils Absolute Auto 9.1 K/mm3 (1.3-6.7); Neutrophils Percent Auto 73.9 % (45.5-73.1); Platelet Count Result 170 k/mm3 (150-375); Red Blood Count 3.44 M/mm3 (4.2-5.4); Red Cell Distribution Width 17.2 % (11.5-14.5); White Blood Count 12.3 K/mm3 (4.5-10.0)
[2023-12-05] MEDS: SODIUM CHLORIDE 0.9% IV 1,000 ML 50 ML IV CONT (05:38)
[2023-12-05 05:54] LABS: Anion Gap 5 mmol/L (8-16); Blood Urea Nitrogen 16 mg/dL (7-17); Calcium 8.2 mg/dL (8.4-10.2); Carbon Dioxide 30 mmol/L (22-30); Chloride 109 mmol/L (98-107); Estimated CRCL calculation 41 ml/min; Estimated Glomerular Filt Rate > 60; Glucose 132 mg/dL (65-110); Potassium 3.6 mmol/L (3.4-5.0); Sodium 144 mmol/L (137-145)
[2023-12-05 07:49] LABS: Glucose Point of Care 143 mg/dl (65-105)
--- NOTE | 2023-12-05 08:07 | PCOTNOTE ---
Addendum entered by Rosalina Mendes OT 12/06/23 08:29: Pt transitioning to hospice care. Confirmed with Hospitalist, Cyndy Caicedo APRN, [place] to discharge therapy orders at this time. Original Note: Awaiting family decision for hospice vs. placement prior to evaluation for OT services.
--- NOTE | 2023-12-05 08:50 | PCPTNOTE ---
Addendum entered by Silvana Bell, PT 12/05/23 15:19: Pt transitioning to hospice care. Confirmed with Hospitalist, Cyndy Caicedo APRN, [place] to discharge therapy orders at this time. 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
[2023-12-05] MEDS: UMECLIDINIUM BROMIDE 62.5 MCG ELLIPTA 1 PUFF INHALATION (09:34)
[2023-12-05] MEDS: FLUTICASONE/SALMETEROL 115-21 MCG INHALER 1 PUFF 2 PUFF INHALATION ×2 (09:34→20:26)
[2023-12-05] MEDS: ACETAMINOPHEN 325 MG TABLET 650 MG PO (10:03)
[2023-12-05] MEDS: ASPIRIN 81 MG CHEWABLE TABLET PO (10:10)
[2023-12-05] MEDS: PANTOPRAZOLE 40 MG TABLET PO (10:12)
[2023-12-05] MEDS: METOPROLOL TARTRATE 50 MG TAB PO ×2 (10:15→20:58)
[2023-12-05] MEDS: LORazepam (*CRX) 0.5 MG TABLET PO ×2 (10:19→20:58)
[2023-12-05] MEDS: metFORMIN HCL 500 MG TABLET PO (10:20)
[2023-12-05] MEDS: DULoxetine HCL 60 MG CAPSULE.DR PO ×2 (10:21→18:01)
[2023-12-05] MEDS: ENOXAPARIN 40 MG/0.4 ML SYRINGE SUB-Q (10:23)
[2023-12-05 11:43] LABS: Glucose Point of Care 260 mg/dl (65-105)
[2023-12-05] MEDS: HYDROcodone/acetaminophen (*CRX) 10-325 MG TABLET 1 TAB PO (12:19)
[2023-12-05] MEDS: INSULIN ASPART (*BKC) 100 UNITS/ML SUB-Q ×2 (12:26→20:57)
--- NOTE | 2023-12-05 15:48 | PM.IMPN ---
Progress Note: A&P Assessment and Plan (1) Closed fracture of neck of right femur: Qualifiers: Encounter type: initial encounter Qualified Code(s): S72.001A - Fracture of unspecified part of neck of right femur, initial encounter for closed fracture Code(s): S72.001A - Fracture of unspecified part of neck of right femur, initial encounter for closed fracture Status: Acute Assessment and Plan: XR hip showed right subcapital femoral neck fracture orthopedics consulted - medical management pain control - pref Tylenol, PO norco PT/OT unable to evaluate due to weight bearing status will need long-term placement (2) Hypertension associated with type 2 diabetes mellitus: Code(s): E11.59 - Type 2 diabetes mellitus with other circulatory complications; I15.2 - Hypertension secondary to endocrine disorders Status: Chronic Assessment and Plan: continue home metoprolol (3) Falls frequently: Code(s): R29.6 - Repeated falls Status: Chronic Assessment and Plan: CT brain negative for acute process or injury [place] resident at [facility] - following as she will need hospice and/or long-term care based on family preference (4) COPD (chronic obstructive pulmonary disease): Code(s): J44.9 - Chronic obstructive pulmonary disease, unspecified Status: Chronic Assessment and Plan: continue home inhalers CXR showed no infiltrate, pleural effusion or pulmonary congestion CPT ordered for cough/wheezing (5) Diabetes: Code(s): E11.9 - Type 2 diabetes mellitus without complications Status: Chronic Assessment and Plan: resume metformin sliding scale low dose insulin, AccuCheck and hypoglycemic protocol Subjective Date/time seen: 12/05/23 15:48 Interval history: Patient is alert and oriented this morning and responsive to my questions. She Her breathing is crackly, but she is on 3 L of oxygen and not in acute distress. Will order CPT therapy.Pain is controlled on exam, but requiring PRN pain medication as available. Orthopedics consulted and family agrees with recommendation against surgery due to her co-morbidities. Family now looking into long-term placement and possibly hospice as she likely will not be mobile again. Review of Systems Review of Systems: All systems reviewed & are unremarkable except as noted in HPI and below Exam Narrative: GENERAL: Elderly, well-nourished, and in no acute distress. HEAD: Normocephalic, atraumatic. EYES: PERRLA and EOMI. NECK: Supple. CHEST: No respiratory distress. Expiratory wheezing. No rales or rhonchi HEART: RRR. No murmur heard. Normal peripheral pulses. ABDOMEN: Soft, nontender, nondistended, active BS present EXTREMITIES: decreased active ROM in the right hip which is held in flexed position. No edema. Normal DP pulses SKIN: Warm, dry, no rash. Multiple bloody wounds noted on right arm. NEURO: No focal deficits. Alert and oriented x1. PSYCH: Normal mood and affect Objective Data Vital Signs Vital Signs: Vital Signs - 24 hr 12/04/23 16:00 12/04/23 20:33 12/04/23 20:37 Temperature Pulse Rate 113 H 119 H Respiratory Rate 20 Blood Pressure Pulse Oximetry 99 Oxygen Delivery Nasal Cannula Oxygen Flow Rate 3 Fraction of Inspired Oxygen 12/04/23 21:00 12/04/23 20:00 12/04/23 22:00 Temperature 98.1 F Pulse Rate 119 H 121 H 120 H Respiratory Rate 24 H Blood Pressure 130/79 Pulse Oximetry 98 98 Oxygen Delivery Nasal Cannula Oxygen Flow Rate 3 Fraction of Inspired Oxygen 12/05/23 00:00 12/05/23 04:00 12/05/23 06:00 Temperature 98.5 F Pulse Rate 93 108 H 113 H Respiratory Rate 24 H Blood Pressure 116/74 Pulse Oximetry 100 Oxygen Delivery Oxygen Flow Rate Fraction of Inspired Oxygen 12/05/23 07:30 12/05/23 09:34 12/05/23 09:34 Temperature 97.1 F L Pulse Rate 108 H 128 H Respiratory Rate 24 H 20
[2023-12-05 17:06] LABS: Glucose Point of Care 116 mg/dl (65-105)
[2023-12-05 21:26] LABS: Glucose Point of Care 205 mg/dl (65-105)
[2023-12-06] VITALS (9 sets, daily range): BP systolic 128–144; BP diastolic 71–88; PULSE 90–121; RESP 18; TEMP 36.7–36.8; O2SAT 90–95
[2023-12-06 05:51] LABS: Basophils Percent Auto 0.2 % (0.2-1.2); Eosinophils Absolute Auto 0.4 K/mm3 (0-0.3); Eosinophils Percent Auto 3.7 % (0-4.4); Hematocrit 27.6 % (37.0-47.0); Hemoglobin 7.9 g/dL (12.0-15.0); Immature Granulocyte Absolute 0.06 K/mm3 (0.00-0.031); Immature Granulocyte Percent A 0.6 % (0-0.5); Lymphocytes Absolute Auto 1.57 K/mm3 (0.9-3.2); Lymphocytes Percent Auto 16.1 % (18.3-44.2); Mean Corpuscular HGB Conc 28.6 g/dl (32-36); Mean Corpuscular Volume 87.3 fl (80-100); Mean Platelet Volume 9.5 fl (7.4-10.4); Monocytes Absolute Auto 0.6 K/mm3 (0.1-0.6); Monocytes Percent Auto 6.5 % (2.6-8.5); Neutrophils Absolute Auto 7.1 K/mm3 (1.3-6.7); Neutrophils Percent Auto 72.9 % (45.5-73.1); Platelet Count Result 182 k/mm3 (150-375); Red Blood Count 3.16 M/mm3 (4.2-5.4); White Blood Count 9.7 K/mm3 (4.5-10.0)
[2023-12-06 05:59] LABS: Anion Gap 5 mmol/L (8-16); Blood Urea Nitrogen 12 mg/dL (7-17); Carbon Dioxide 27 mmol/L (22-30); Chloride 107 mmol/L (98-107); Estimated CRCL calculation 47 ml/min; Estimated Glomerular Filt Rate > 60; Glucose 135 mg/dL (65-110); Potassium 3.3 mmol/L (3.4-5.0); Sodium 139 mmol/L (137-145)
[2023-12-06 06:27] LABS: Platelet Estimate Adequate (Adequate)
[2023-12-06 06:28] LABS: Anisocytosis 1+ (NORMAL); Hypochromasia 1+ (NORMAL); Schistocytes None Seen (NORMAL)
[2023-12-06] MEDS: HYDROcodone/acetaminophen (*CRX) 10-325 MG TABLET 1 TAB PO ×2 (06:57→13:28)
[2023-12-06] MEDS: SODIUM CHLORIDE 0.9% IV 1,000 ML 50 ML IV CONT (07:00)
[2023-12-06] MEDS: FLUTICASONE/SALMETEROL 115-21 MCG INHALER 1 PUFF 2 PUFF INHALATION (07:38)
[2023-12-06] MEDS: UMECLIDINIUM BROMIDE 62.5 MCG ELLIPTA 1 PUFF INHALATION (07:39)
[2023-12-06 08:13] LABS: Glucose Point of Care 155 mg/dl (65-105)
--- NOTE | 2023-12-06 08:37 | PM.IMPN ---
Progress Note: A&P Assessment and Plan (1) Closed fracture of neck of right femur: Qualifiers: Encounter type: initial encounter Qualified Code(s): S72.001A - Fracture of unspecified part of neck of right femur, initial encounter for closed fracture Code(s): S72.001A - Fracture of unspecified part of neck of right femur, initial encounter for closed fracture Status: Acute Assessment and Plan: XR hip showed right subcapital femoral neck fracture orthopedics consulted - medical management pain control - pref Tylenol, PO norco PT/OT unable to evaluate due to weight bearing status will need long-term placement (2) Falls frequently: Code(s): R29.6 - Repeated falls Status: Chronic Assessment and Plan: CT brain negative for acute process or injury [place] resident at [facility] - following as she will need hospice and/or long-term care based on family preference (3) Hypertension associated with type 2 diabetes mellitus: Code(s): E11.59 - Type 2 diabetes mellitus with other circulatory complications; I15.2 - Hypertension secondary to endocrine disorders Status: Chronic Assessment and Plan: continue home metoprolol (4) COPD (chronic obstructive pulmonary disease): Code(s): J44.9 - Chronic obstructive pulmonary disease, unspecified Status: Chronic Assessment and Plan: continue home inhalers CXR showed no infiltrate, pleural effusion or pulmonary congestion CPT ordered for cough/wheezing (5) Diabetes: Code(s): E11.9 - Type 2 diabetes mellitus without complications Status: Chronic Assessment and Plan: resume metformin sliding scale low dose insulin, AccuCheck and hypoglycemic protocol Time Spent With Patient Time with patient: 25 - 35 minutes Subjective Date/time seen: 12/06/23 08:37 Interval history: This is an 83 year old female who presented to the hospital on 12/03/23 for evaluation of a fall. Work up in the hospital includes head CT which was negative for any acute findings or fractures. Cervical spine CT shown severe degenerative disease at C5-6 and C6-7. Elbow x-ray showing no acute fracture or dislocation. Hip and pelvis x-ray revealed right subcapital femoral neck fracture. CXR was negative. Ortho was consulted and surgery was discussed. Patient and family deciding on surgery vrs hospice. On examination today patientLabs today revealed Hgb 7.9, Hct 27.6, K+ 3.3, BG ranging 135-155. Review of Systems Review of Systems: All systems reviewed & are unremarkable except as noted in HPI and below Exam Narrative: General: In no acute distress, well nourished Head: atraumatic, no encephalopathy Eyes: EOMI, PERRLA, sclera clear ENT: moist mucous membranes, nasal passages clear Neck: supple, no JVD, no adenopathy, trachea midline Cardiac: Normal S1 and S2. No murmur, gallops or friction rubs, peripheral pulses intact. Respiratory: Lungs clear to auscultation, no adventitious lung sounds Gastrointestinal: soft, non-distended, non-tender, normoactive bowel sounds. : voiding without difficulty. Extremities: moves all extremities well, no edema, good ROM, strength 5/5 Skin: clean, dry, intact. No wounds or lesions. Neuro: Alert and oriented x4, cranial nerves intact, no neuro deficits. Psych: normal mood, normal affect, interactive Objective Data Vital Signs Vital Signs: Vital Signs - 24 hr 12/05/23 09:34 12/05/23 09:34 12/05/23 10:15 Temperature Pulse Rate 128 H 106 H Respiratory Rate 20 Blood Pressure Pulse Oximetry 93 Oxygen Delivery Non-Rebreather Mask Oxygen Flow Rate 2 Fraction of Inspired Oxygen 28 12/05/23 11:45 12/05/23 12:00 12/05/23 14:20 Temperature 98.4 F 97.2 F L Pulse Rate 131 H 102 H 89 Respiratory Rate 22 H 26 H Blood Pressure 110/62 112/56 L Pulse Oximetry 96 96 Oxygen Delivery Oxygen Flow Rate Fraction of Inspired Oxygen
[2023-12-06] MEDS: PANTOPRAZOLE 40 MG TABLET PO (09:24)
[2023-12-06] MEDS: metFORMIN HCL 500 MG TABLET PO (09:24)
[2023-12-06] MEDS: METOPROLOL TARTRATE 50 MG TAB PO (09:24)
[2023-12-06] MEDS: LORazepam (*CRX) 0.5 MG TABLET PO (09:24)
[2023-12-06] MEDS: ENOXAPARIN 40 MG/0.4 ML SYRINGE SUB-Q (09:25)
[2023-12-06] MEDS: ASPIRIN 81 MG CHEWABLE TABLET PO (09:25)
[2023-12-06] MEDS: DULoxetine HCL 60 MG CAPSULE.DR PO (09:25)
[2023-12-06 12:35] LABS: Glucose Point of Care 133 mg/dl (65-105)
--- NOTE | 2023-12-06 18:09 | PM.DS ---
DS: Admitting Diagnosis Discharge Date 12/06/23 Admitting Diagnosis Closed fracture of neck of right femur Hypertension associated with type 2 diabetes mellitus Falls frequently COPD Diabetes mellitus DS: Summary Hospital Course Reason for hospitalization: Closed fracture of the neck of the right femur Hypertension associated with type 2 diabetes mellitus Falls frequently COPD Diabetes Hospital Course: This is an 83 year old female who presented to the hospital on 12/03/23 for evaluation of a fall. Work up in the hospital includes head CT which was negative for any acute findings or fractures. Cervical spine CT shown severe degenerative disease at C5-6 and C6-7. Elbow x-ray showing no acute fracture or dislocation. Hip and pelvis x-ray revealed right subcapital femoral neck fracture. CXR was negative. Ortho was consulted and surgery was discussed. On examination today patient is alert and oriented times 2-3, lying in the bed. is at the bedside. Labs today revealed Hgb 7.9, Hct 27.6, K+ 3.3, BG ranging 135-155. requesting hospice care considering her advanced dementia and comorbidities. Patient was set up to go to [facility] with [facility] hospice care. Vital signs are stable, she is afebrile, she is currently on 2 L nasal cannula. We will keep Juarez in considering we are going full hospice at this time. Patient is stable for discharge at this time. Final diagnosis: Closed right subcapital femoral neck fracture, fall with injury, dementia Status at Discharge Cognitive/behavioral status at discharge: Alert oriented x1 Functional status at discharge: bed bound Overall status at discharge: patient is not back to baseline Time Spent with Patient Time attestation: Total time spent providing and/or coordinating discharge services: Time spent: Greater than 30 minutes Exam Narrative: General: In no acute distress, well nourished, pleasant Head: atraumatic, no encephalopathy Eyes: EOMI, PERRLA, sclera clear ENT: moist mucous membranes, nasal passages clear Neck: supple, no JVD, no adenopathy, trachea midline Cardiac: Normal S1 and S2. No murmur, gallops or friction rubs, peripheral pulses intact. Respiratory: Lungs clear to auscultation, no adventitious lung sounds, currently on 2 L Gastrointestinal: soft, non-distended, non-tender, normoactive bowel sounds. : Currently has Juarez catheter in place draining clear yellow urine Extremities: Limited range of motion in the right lower extremity, bilateral upper extremity and left lower extremity good range of motion. No edema. Skin: Open areas on right upper extremity Neuro: Alert and oriented x1, cranial nerves intact, no neuro deficits. Psych: normal mood, normal affect, interactive DS: Data Data Completed and Pending Completed studies during hospitalization: Head CT Hip/pelvis x-ray Elbow x-ray Cervical spine CT Head CT Pending studies at discharge: None Labs on day of discharge: Labs from last 24 hours 12/06/23 12/06/23 12/06/23 12:23 08:08 05:07 WBC 9.7 RBC 3.16 L Hgb 7.9 L Hct 27.6 L MCV 87.3 MCH 25.0 L MCHC 28.6 L RDW 17.0 H Plt Count 182 MPV 9.5 Immature Gran % (Auto) 0.6 H Neut % (Auto) 72.9 Lymph % (Auto) 16.1 L [place] % (Auto) 6.5 Eos % (Auto) 3.7 Baso % (Auto) 0.2 Lymph # (Auto) 1.57 [place] # (Auto) 0.6 Eos # (Auto) 0.4 H Baso # (Auto) 0.0 Abs Immat Gran (auto) 0.06 H Absolute Neuts (auto) 7.1 H Absolute Nucleated RBC 0.0 Nucleated RBC % 0.0 Platelet Estimate Adequate Hypochromasia 1+ Anisocytosis 1+ Schistocytes None seen Sodium 139 Potassium 3.3 L Chloride 107 Carbon Dioxide 27 Anion Gap 5 L BUN 12 Creatinine 0.60 L Estim Creat Clear Calc 47 Estimated GFR > 60 Glucose 135 H POC Capillary Glucose 133 H 155 H Calcium 8.0 L 12/05/23 20:57 WBC RBC Hgb Hct MCV MCH MCHC RDW Plt Count M
== END 2023-12-06 15:05 ==
LOC: ANHED 12-03 04:29 → ANH2MED 12-03 04:35
PROVIDERS: Nurse Practitioner; Admitting Provider Internal Medicine; Emergency Provider Physician Assistant; PCP Internal Medicine; Visit Provider Internal Medicine
DX: S72.001A Fracture of unspecified part of neck of right femur, initial encounter for closed fracture (principal); S51.011A Laceration without foreign body of right elbow, initial encounter; W18.30XA Fall on same level, unspecified, initial encounter; E11.59 Type 2 diabetes mellitus with other circulatory complications; I15.2 Hypertension secondary to endocrine disorders; R29.6 Repeated falls; J44.9 Chronic obstructive pulmonary disease, unspecified; J96.11 Chronic respiratory failure with hypoxia; M43.12 Spondylolisthesis, cervical region; M16.11 Unilateral primary osteoarthritis, right hip; M41.86 Other forms of scoliosis, lumbar region; M51.36 Other intervertebral disc degeneration, lumbar region; R00.0 Tachycardia, unspecified; Z99.81 Dependence on supplemental oxygen; I70.0 Atherosclerosis of aorta; I45.10 Unspecified right bundle-branch block; Z11.52 Encounter for screening for COVID-19; F03.90 Unspecified dementia, unspecified severity, without behavioral disturbance, psychotic disturbance, mood disturbance, and anxiety; D64.9 Anemia, unspecified; Z96.0 Presence of urogenital implants; K21.9 Gastro-esophageal reflux disease without esophagitis; Z87.891 Personal history of nicotine dependence; Z79.82 Long term (current) use of aspirin; Z79.51 Long term (current) use of inhaled steroids; Z79.52 Long term (current) use of systemic steroids; Z79.84 Long term (current) use of oral hypoglycemic drugs; Z79.899 Other long term (current) drug therapy
CPT/HCPCS: 36415; 36600; 70450; 71045; 72125; 73080; 73502; 80048; 80053; 81001; 82805; 82948; 85025; 85027; 87086; 87637; 93005; 94640; 94667; 96125; 96361; 96374; 96375; 96376; 99285; A9270; G0378; J1650; J1815; J2270; J2405; J2930; J7030